=== PATIENT | female | born 1955 | race Caucasian/White ===

== ENCOUNTER 2019-09-03 07:57 | Outpatient (CLI) | payer MEDICARE, MEDICAID, SELFPAY ==
--- NOTE | 2019-09-03 08:45 | US_ITS ---
WS: [id number] RIGHT UPPER QUADRANT ULTRASOUND HISTORY: ELEVATED TRANSAMINASE LEVEL COMPARISON: None available. Liver: 13.4 cm in length. Poorly visualized liver. Marked attenuation throughout the liver. There is at least moderate enlargement of the liver with severe hepatic steatosis. The liver is not adequately evaluated to exclude mass or bile duct dilatation. Gallbladder: Well distended gallbladder with a single stone causing shadowing. No adjacent pericholec ystic fluid. CBD: 5.0 mm Pancreas: Not visualized. Right kidney: 14.3 cm in length. Normal echogenicity with no mass or hydronephrosis. Aorta and IVC: Unremarkable. No ascites. US/US gall bladder [id number] IMPRESSION: 1. Technically limited evaluation of the RIGHT upper quadrant. 2. Cholelithiasis without acute cholecystitis. 3. Hepatic steatosis. Hepatomegaly. 4. Very limited evaluation of the liver and pancreas.
== END 2019-09-03 07:58 | disposition home or self-care (01) ==
PROVIDERS: Family Provider Family Medicine; PCP Family Medicine; Visit Provider Family Medicine
DX: K80.20 Calculus of gallbladder without cholecystitis without obstruction (principal); R74.0 Nonspecific elevation of levels of transaminase and lactic acid dehydrogenase [LDH]; K76.0 Fatty (change of) liver, not elsewhere classified
CPT/HCPCS: 76705

== ENCOUNTER 2020-02-26 22:03 | Emergency (ER) | payer MEDICARE, MEDICAID, SELFPAY ==
[2020-02-26 22:40] VITALS: BP 212/102; PULSE 98; RESP 20; TEMP 37.5; O2SAT 92; BMI 61.9
[2020-02-26 22:52] LABS: Basophils % 0.2 %; Eosinophils % 0.1 %; Hematocrit 42.2 % (37.0-47.0); Hemoglobin 13.6 g/dL (11.5-15.3); Lymphocytes # 2.7 10^3/uL (0.8-4.8); Lymphocytes % 14.2 %; Mean Corpuscular HGB Conc 32.2 g/dL (30.0-36.0); Mean Corpuscular Hemoglobin 29.1 pg (28.0-34.0); Mean Corpuscular Volume 90.2 fL (81-99); Mean Platelet Volume 11.2 fL (7.4-10.4); Monocytes # 1.7 10^3/uL (0.2-0.9); Monocytes % 8.8 %; Neutrophils # 14.4 10^3/uL (1.8-7.7); Neutrophils % 76.1 %; Nucleated Red Blood Cells % 0 %; Platelet Count 245 10^3/cmm (130-400); Red Blood Count 4.68 10^6/uL (4.1-5.3); Red Cell Distribution Width 14.6 % (12.1-15.1); White Blood Count 18.9 10^3/uL (4.0-10.0)
[2020-02-26 23:13] LABS: Alanine Aminotransferase 25 U/L (0-33); Albumin Level 4.3 g/dL (3.5-5.2); Alkaline Phosphatase 123 IU/L (35-105); Anion Gap 17.9 (5-19); Aspartate Amino Transferase 25 U/L (0-32); Blood Urea Nitrogen 8 mg/dL (8-23); C Reactive Protein 76.9 mg/L (0.0-4.9); Calcium 9.3 mg/dL (8.5-10.5); Carbon Dioxide 27 mmol/L (22-29); Chloride 91 mmol/L (98-107); Globulin 3.9 g/dL (1.3-4.6); Glomerular Filtration Rate 123.8 mL/min (90-130); Glucose 175 mg/dL (65-115); Osmolality Calculated 274 mOsm/kg (285-295); Potassium 3.9 mmol/L (3.5-5.1); Sodium 132 mmol/L (136-145); Total Bilirubin 1.1 mg/dL (0.15-1.2); Total Protein 8.2 g/dL (6.6-8.7)
--- NOTE | 2020-02-26 23:43 | W.ED.SKABFB ---
HPI - Skin/Abscess/Foreign Bdy General: Chief complaint: Skin/Abscess/Foreign Body Stated complaint: wound on butt Time Seen by Provider: 02/26/20 23:42 History of Present Illness: HPI narrative: Patient is a 64-year-old female who comes to the ED with sore on right buttock. Patient says it started approximately 3 to 4 days ago. First was a small red sore with a little enamorado and it has since progressed and gotten more painful. Today patient said she wiped sore and white head was removed and blood started leaking out. Denies any pus or malodorous drainage from sore. Pain gets worse if she sits on it or puts any pressure on sore. As long as she is not putting any pressure on sore spot she has very little pain. Patient says she is just been taking aspirin for the pain. Patient started developing mild subjective fevers at home today. Associated symptoms: Reports fever(s); Deny chills, nausea or vomiting Review of Systems Const: Reports: fever(s); Denies: chills or fatigue Eyes: Denies: change in vision or eye discomfort ENMT: Denies: throat pain, odynophagia, nasal discharge or nasal congestion Card: Denies: chest pain, palpitations, edema, swelling of feet/ankles, dyspnea on exertion or orthopnea Resp: Denies: dyspnea, productive cough or non-productive cough GI: Denies: abdominal pain, nausea, vomiting, diarrhea, constipation or hematochezia : Denies: flank pain, dysuria or hematuria Musc: Denies: neck pain, back pain or extremity swelling Skin/Breast: Reports: new lesions (on right buttock); Denies: rash Neuro: Denies: headache(s), numbness in extremities or weakness in extremities PFS ED PFSH: Medical History Arthritis COPD (chronic obstructive pulmonary disease) Enrolled in chronic care management Essential hypertension Hyperglycemia without ketosis Social History Smoking and tobacco status: former smoker Quit status (tobacco): has quit using tobacco Year quit tobacco: 2017 Physical Exam Const: COMMON NORMALS: no acute distress, patient oriented x3 and alert GENERAL APPEARANCE: cooperative NUTRITIONAL APPEARANCE: obese HENMT: COMMON NORMALS: normocephalic HEAD & SCALP: normocephalic MOUTH: Normal oral and palatal mucosa present THROAT: posterior oropharynx normal and uvula midline Neck/C-Spine: COMMON NORMALS: supple GENERAL: Yes normal visual inspection Resp: COMMON NORMALS: normal respiratory effort, No retractions, No use of accessory muscles and clear to auscultation bilaterally AUSCULTATION: clear to auscultation bilaterally Cardio: COMMON NORMALS: regular rate, regular rhythm, S1 normal heart sound present, S2 normal heart sound present, No gallops present (Cardio), No clicks present (Cardio), No murmurs present (Cardio) and Peripheral pulses 2+ throughout RATE: regular rate RHYTHM: regular rhythm HEART SOUNDS: S1 normal heart sound present and S2 normal heart sound present PERIPHERAL PULSES: Peripheral pulses 2+ throughout GI: COMMON NORMALS: Normal to inspection, nondistended, normoactive bowel sounds present, Soft to palpation, non-tender and no masses PALPATION: Yes Soft to palpation : COMMON NORMALS: Yes no CVA tenderness BLADDER/KIDNEY EXAM: Yes no CVA tenderness Back/Pelvis: COMMON NORMALS: no CVA tenderness PELVIS: Yes buttock abnormal Buttock abnormal laterality: right (Patient has erythema, warmth with a small pointed head that is draining minimal blood but no purulent drainage. Skin is indurated and nonfluctuant) Right buttock abnormal details: erythema and swelling Neuro: COMMON NORMALS: patient oriented x3 and moves all extremities SENSORIUM/ORIENTATION: Yes alert SENSORY EXAM: Yes extremities (intact) MOTOR EXAM: 5/5 motor strength present throughout Skin: NARRATIVE SKIN EXAM: Forming abscess on right buttock. There is no active purulent drainage. There is a small pointed head that is draining very little blood. Skin is firm erythema and warmth. Lesion is indurated and nonfluctuant. Mild tenderness to the touch. GENERAL SKIN EXAM: dry skin Course Reevaluation(s): Reevaluation #1: A bedside ultrasound was performed to examine the lesion to see if that has any formed pocket of fluid to drain. No fluid pockets were visible upon ultrasound examination. Vital Signs: Vital signs: Vital Signs Temperature 99.5 F 02/26/20 22:40 Pulse Rate 94 02/27/20 00:29 Respiratory Rate 20 H 02/27/20 00:29 Blood Pressure 219/82 02/27/20 00:29 Pulse Oximetry 95 02/27/20 00:29 MDM - Skin/Abscess/Foreign Bdy MDM Narrative: Medical decision making narrative: Patient is a 64-year-old female who comes to the ED with a lesion on right buttock. Physical exam shows erythema, warmth and skin was firm but mildly tender to the touch. Lesion was indurated and nonfluctuant. No active purulent drainage. Bedside ultrasound was performed to use see if there was any pocket of fluid to be drained and no fluid pocket was identified. Pt had a BP of 141/84 while I was in the room with patient. Patient had a white blood cell count of 18.9. Patient was given IV fluids, Toradol and rocephin through the IV. Patient was diagnosed with abscess and cellulitis of gluteal region and she was given a prescription of clindamycin. Patient was told to return to the ED if symptoms worsen. She was also told to be seen by her primary care doctor in the next 2 to 3 days for reevaluation. Patient understood and agreed with plan. Lab Data: Attestation: I reviewed the patient's lab results. Labs: Lab Results 02/26/20 02/26/20 Range/Units 22:31 22:31 WBC 18.9 H (4.0-10.0) 10^3/ uL RBC 4.68 (4.1-5.3) 10^6/u L Hgb 13.6 (11.5-15.3) g/dL Hct 42.2 (37.0-47.0) % MCV 90.2 (81-99) fL MCH 29.1 (28.0-34.0) pg MCHC 32.2 (30.0-36.0) g/dL RDW 14.6 (12.1-15.1) % Plt Count 245 (130-400) 10^3/c mm MPV 11.2 H (7.4-10.4) fL Neut % (Auto) 76.1 % Lymph % (Auto) 14.2 % Bland % (Auto) 8.8 % Eos % (Auto) 0.1 % Baso % (Auto) 0.2 % Neut # (Auto) 14.4 H (1.8-7.7) 10^3/u L Lymph # (Auto) 2.7 (0.8-4.8) 10^3/u L Bland # (Auto) 1.7 H (0.2-0.9) 10^3/u L Eos # (Auto) 0.0 (0.0-0.8) 10^3/u L Baso # (Auto) 0.0 (0.0-0.1) 10^3/u L Nucleated RBC % (a uto) 0 % Nucleated RBCs # 0.0 /100WBC Sodium 132 L (136-145) mmol/L Potassium 3.9 (3.5-5.1) mmol/L Chloride 91 L (98-107) mmol/L Carbon Dioxide 27 (22-29) mmol/L Anion Gap 17.9 (5-19) BUN 8 (8-23) mg/dL Creatinine 0.5 (0.5-0.9) mg/dL GFR Calculation 123.8 (90-130) mL/min Glucose 175 H (65-115) mg/dL Calculated Osmolal ity 274 L (285-295) mOsm/k g Calcium 9.3 (8.5-10.5) mg/dL Total Bilirubin 1.1 (0.15-1.2) mg/dL AST 25 (0-32) U/L ALT 25 (0-33) U/L Alkaline Phosphata se 123 H (35-105) IU/L C-Reactive Protein 76.9 H (0.0-4.9) mg/L Total Protein 8.2 (6.6-8.7) g/dL Albumin 4.3 (3.5-5.2) g/dL Globulin 3.9 (1.3-4.6) g/dL Discharge Plan Discharge Patient Disposition: Home, Self-Care Clinical Impression: Abscess and cellulitis of gluteal region Condition: Stable Prescriptions: New clindamycin HCl 150 mg capsule 300 mg PO QID 7 Days Qty: 56 RF: 0 No Action albuterol sulfate 2.5 mg /3 mL (0.083 %) solution for nebulization 2.5 mg INHALATION QID PRNRF: 0 Altabax 1 % ointment 1 applic TOPICAL BID PRNRF: 0 aspirin [Adult Aspirin Regimen] 81 mg tablet,delayed release (DR/EC) 81 mg PO DAILY RF: 0 nystatin 100,000 unit/gram cream 1 applic TOPICAL BID RF: 0 diltiazem HCl 360 mg capsule,extended release 24 hr 360 mg PO DAILY Qty: 30 RF: 11 Discharge Orders: Discharge Order (Routine); Ordered 02/27/20 Ordered By: Rikki Ivey Referrals: Brain Wright DO [Primary Care Provider] - Discharge Diet: Regular Discharge Activity: Increase activity as tolerated Patient Instructions: Cellulitis (ED), Abscess (ED) Activity Restrictions/Additional Instructions: Follow-up with medical provider as directed in 2-3 days. Take full course of antibitotic as prescribed. Return to the ER or your medical provider if condition worsens. You can take Tylenol or ibuprofen for pain or fevers. Please read and understand discharge instructions. If any questions ask please. Coding Level of Care Code ED [facility] Specialist for Alex Ingram
[2020-02-27 00:29] VITALS: BP 219/82; PULSE 94; RESP 20; O2SAT 95
[2020-02-27] MEDS: sodium chloride 0.9% 1,000 ML 999 ML IV (00:32)
[2020-02-27] MEDS: ketorolac 30 mg/mL INJ IVP (00:37)
[2020-02-27] MEDS: cefTRIAXone 2,000 MG in sodium chloride 0.9% (plus) 50 ML 100 MG IV (00:37)
[2020-02-27 02:32] VITALS: BP 177/68; PULSE 96; RESP 20; TEMP 37.2; O2SAT 96
== END 2020-02-27 03:00 | disposition home or self-care (01) ==
PROVIDERS: Emergency Provider Physician Assistant; PCP Family Medicine
DX: L02.31 Cutaneous abscess of buttock (principal); L03.317 Cellulitis of buttock; Z79.82 Long term (current) use of aspirin; J44.9 Chronic obstructive pulmonary disease, unspecified; I10 Essential (primary) hypertension; Z87.891 Personal history of nicotine dependence
CPT/HCPCS: 12345; 36415; 80053; 85025; 86140; 87040; 96365; 96375; 99282; 99283; J0696; J1885; J7030

== ENCOUNTER 2020-02-28 17:00 | Emergency (ER) | payer MEDICARE, MEDICAID, SELFPAY ==
[2020-02-28 17:23] VITALS: BP 166/87; PULSE 76; RESP 20; TEMP 35.8; O2SAT 95; BMI 49.6
[2020-02-28 21:37] VITALS: BP 196/85; PULSE 82; RESP 20; TEMP 37.1; O2SAT 94
--- NOTE | 2020-02-28 22:42 | ED_ITS ---
HPI - Wound/Laceration General: Chief Complaint: Wound/Laceration Stated Complaint: wound check Time Seen by Provider: 02/28/20 22:33 History of Present Illness: HPI narrative: Patient was seen 2 to 3 days ago for a area on her right buttocks. Patient was started on clindamycin and has had worsening symptoms. Patient reports increased pain and discomfort to the area. Patient reports some drainage from the wound. Review of Systems General: Reports: 10 or more systems reviewed and unremarkable except in HPI and below Skin/Breast: Reports: changes in skin color PFSH ED PFSH: Medical History (Updated 02/28/20 @ 23:46 by BLAS Galvan) Arthritis COPD (chronic obstructive pulmonary disease) Enrolled in chronic care management Essential hypertension Hyperglycemia without ketosis Social History Smoking and tobacco status: former smoker Quit status (tobacco): has quit using tobacco Year quit tobacco: 2017 Physical Exam Const: COMMON NORMALS: no acute distress and patient oriented x3 GENERAL APPEARANCE: cooperative HENMT: COMMON NORMALS: normocephalic and Normal external nose present HEAD & SCALP: normal to inspection and normocephalic NOSE: Normal external nose present MOUTH: Normal oral and palatal mucosa present THROAT: posterior oropharynx normal Eye: GENERAL EYE: appearance normal, both eyes and all related structures Neck/C-Spine: COMMON NORMALS: full ROM Lymph: LYMPHATIC: no lymphadenopathy noted Chest: COMMONS NORMALS: normal inspection of the chest Resp: COMMON NORMALS: normal respiratory effort EFFORT & INSPECTION: Yes able to speak in complete sentences Cardio: COMMON NORMALS: regular rate and regular rhythm RATE: regular rate RHYTHM: regular rhythm GI: COMMON NORMALS: non-tender Back/Pelvis: COMMON NORMALS: thoracic and lumbar spine normal to inspection Extremity: COMMON NORMALS: normal to inspection Neuro: COMMON NORMALS: patient oriented x3 and moves all extremities Psych: COMMON NORMALS: mental status grossly normal and cooperative Skin: COMMON NORMALS: no rashes or lesions noted GENERAL SKIN EXAM: no rashes or lesions noted Procedures Abscess I/D Site: kimberly-rectal (right buttock) Side (if applicable): right Local Anesthetic: lidocaine 1% Amount of anesthesia used (mL): 10 Technique: incised with #11 blade Amount of fluid expressed (mL): 10 Irrigation: Yes Packing used?: iodoform Complications: bleeding Course Vital Signs: Vital signs: Vital Signs Temperature 98.7 F 02/29/20 00:45 Pulse Rate 82 02/29/20 00:45 Respiratory Rate 18 02/29/20 00:45 Blood Pressure 188/74 02/29/20 00:45 Pulse Oximetry 94 02/29/20 00:45 MDM - Wound/Laceration MDM Narrative: Medical decision making narrative: Patient comes in for worsening symptoms to the right buttock. On exam we note increased induration and erythema to the right buttock with a draining central lesion. Patient's vital signs are normal. Patient appears well. Differential diagnosis includes abscess, cellulitis, necrotizing fasciitis. No crepitus was noted in the tissue, wound was opened up with evacuation of a large amount of purulent drainage and some increase in bleeding. Bleeding ceased without much difficulty. Patient was packed with about 3 inches of iodoform gauze. Patient was recommended to return in 2 to 3 days for removal of packing or to return earlier for worsening signs and symptoms. Patient reported understanding and agreed to plan. Patient was given medication for pain in the ER and was also given a dose of clindamycin 900 mg by IV. Lab Data: Labs: Lab Results 02/28/20 02/28/20 Range/Units 23:01 23:01 WBC 14.6 H (4.0-10.0) 10^3/ uL RBC 4.33 (4.1-5.3) 10^6/u L Hgb 12.3 (11.5-15.3) g/dL Hct 39.5 (37.0-47.0) % MCV 91.2 (81-99) fL MCH 28.4 (28.0-34.0) pg MCHC 31.1 (30.0-36.0) g/dL RDW 14.6 (12.1-15.1) % Plt Count 247 (130-400) 10^3/c mm MPV 11.3 H (7.4-10.4) fL Neut % (Auto) 63.2 % Lymph % (Auto) 26.3 % [place] % (Auto) 8.7 % Eos % (Auto) 1.0 % Baso % (Auto) 0.5 % Neut # (Auto) 9.2 H (1.8-7.7) 10^3/u L Lymph # (Auto) 3.8 (0.8-4.8) 10^3/u L [place] # (Auto) 1.3 H (0.2-0.9) 10^3/u L Eos # (Auto) 0.2 (0.0-0.8) 10^3/u L Baso # (Auto) 0.1 (0.0-0.1) 10^3/u L Nucleated RBC % (a uto) 0 % Nucleated RBCs # 0.0 /100WBC Sodium 135 L (136-145) mmol/L Potassium 3.5 (3.5-5.1) mmol/L Chloride 95 L (98-107) mmol/L Carbon Dioxide 26 (22-29) mmol/L Anion Gap 17.5 (5-19) BUN 13 (8-23) mg/dL Creatinine 0.5 (0.5-0.9) mg/dL GFR Calculation 123.8 (90-130) mL/min Glucose 136 H (65-115) mg/dL Calculated Osmolal ity 278 L (285-295) mOsm/k g Calcium 9.6 (8.5-10.5) mg/dL Total Bilirubin 0.6 (0.15-1.2) mg/dL AST 25 (0-32) U/L ALT 24 (0-33) U/L Alkaline Phosphata se 110 H (35-105) IU/L Total Protein 7.5 (6.6-8.7) g/dL Albumin 4.1 (3.5-5.2) g/dL Globulin 3.4 (1.3-4.6) g/dL Discharge Plan Discharge Patient Disposition: Home, Self-Care Clinical Impression: Abscess Condition: Stable Prescriptions: New hydrocodone-acetaminophen 5-325 mg tablet 1 tab PO Q6H PRN (Reason: pain, severe) Qty: 7 RF: 0 No Action albuterol sulfate 2.5 mg /3 mL (0.083 %) solution for nebulization 2.5 mg INHALATION QID PRNRF: 0 Altabax 1 % ointment 1 applic TOPICAL BID PRNRF: 0 aspirin [Adult Aspirin Regimen] 81 mg tablet,delayed release (DR/EC) 81 mg PO DAILY RF: 0 nystatin 100,000 unit/gram cream 1 applic TOPICAL BID RF: 0 diltiazem HCl 360 mg capsule,extended release 24 hr 360 mg PO DAILY Qty: 30 RF: 11 clindamycin HCl 150 mg capsule 300 mg PO QID 7 Days Qty: 56 RF: 0 Discharge Orders: Discharge Order (Routine); Ordered 02/28/20 Ordered By: Karl Snyder Discharge Diet: Usual diet Discharge Activity: Increase activity as tolerated Patient Instructions: Abscess Incision and Drainage (ED) Activity Restrictions/Additional Instructions: Return to the ER in 3 days to have wick removed from abscess. Return earlier to the ER for high fever or worsening symptoms. Take clindamycin 150 mg 2 capsules twice a day 4 times a day until complete of the prescription. Follow-up with primary care in 1 week. Discharge Date/Time: 02/29/20 00:46 Coding Level of Care Code ED Video Editor for Alex Ingram
[2020-02-28 23:12] LABS: Basophils # 0.1 10^3/uL (0.0-0.1); Basophils % 0.5 %; Eosinophils # 0.2 10^3/uL (0.0-0.8); Hematocrit 39.5 % (37.0-47.0); Hemoglobin 12.3 g/dL (11.5-15.3); Lymphocytes # 3.8 10^3/uL (0.8-4.8); Lymphocytes % 26.3 %; Mean Corpuscular HGB Conc 31.1 g/dL (30.0-36.0); Mean Corpuscular Hemoglobin 28.4 pg (28.0-34.0); Mean Corpuscular Volume 91.2 fL (81-99); Mean Platelet Volume 11.3 fL (7.4-10.4); Monocytes # 1.3 10^3/uL (0.2-0.9); Monocytes % 8.7 %; Neutrophils # 9.2 10^3/uL (1.8-7.7); Neutrophils % 63.2 %; Nucleated Red Blood Cells % 0 %; Platelet Count 247 10^3/cmm (130-400); Red Blood Count 4.33 10^6/uL (4.1-5.3); Red Cell Distribution Width 14.6 % (12.1-15.1); White Blood Count 14.6 10^3/uL (4.0-10.0)
[2020-02-28] MEDS: lidocaine 1% INJ 20 mL INJECTION (23:28)
[2020-02-28] MEDS: ketorolac 30 mg/mL INJ IVP (23:28)
[2020-02-28] MEDS: ondansetron 2 mg/ML SDV 2 mL 4 MG IVP (23:28)
[2020-02-28 23:31] LABS: Alanine Aminotransferase 24 U/L (0-33); Albumin Level 4.1 g/dL (3.5-5.2); Alkaline Phosphatase 110 IU/L (35-105); Anion Gap 17.5 (5-19); Aspartate Amino Transferase 25 U/L (0-32); Blood Urea Nitrogen 13 mg/dL (8-23); Calcium 9.6 mg/dL (8.5-10.5); Carbon Dioxide 26 mmol/L (22-29); Chloride 95 mmol/L (98-107); Globulin 3.4 g/dL (1.3-4.6); Glomerular Filtration Rate 123.8 mL/min (90-130); Glucose 136 mg/dL (65-115); Osmolality Calculated 278 mOsm/kg (285-295); Potassium 3.5 mmol/L (3.5-5.1); Sodium 135 mmol/L (136-145); Total Bilirubin 0.6 mg/dL (0.15-1.2); Total Protein 7.5 g/dL (6.6-8.7)
[2020-02-28] MEDS: clindamycin 900 MG/50 ML PREMIX 100 MG IV (23:52)
[2020-02-29] MEDS: HYDROcodone-acetaminophen 5-325 mg Tablet 1 TAB PO (00:44)
[2020-02-29 00:45] VITALS: BP 188/74; PULSE 82; RESP 18; TEMP 37.1; O2SAT 94
== END 2020-02-29 00:46 | disposition home or self-care (01) ==
PROVIDERS: Emergency Provider Nurse Practitioner Family
DX: L02.31 Cutaneous abscess of buttock (principal); Z79.82 Long term (current) use of aspirin; J44.9 Chronic obstructive pulmonary disease, unspecified; I10 Essential (primary) hypertension; Z87.891 Personal history of nicotine dependence
CPT/HCPCS: 10060; 12345; 80053; 85025; 96365; 96375; 96376; 99283; J1885; J2001; J2405; J3490

== ENCOUNTER 2020-12-05 23:21 | Emergency (ER) | payer MEDICARE, MEDICAID, SELFPAY ==
[2020-12-05 23:25] VITALS: BP 208/114; PULSE 84; RESP 18; TEMP 36.6; O2SAT 94
[2020-12-05 23:48] LABS: Add Urine Microscopic? NO; Charge for UA Resulting for Rev
--- NOTE | 2020-12-05 23:49 | CTR_ITS ---
PROCEDURE INFORMATION: Exam: CT Abdomen And Pelvis Without Contrast Exam date and time: 12/05/2020 11:53 PM Age: 65 years old Clinical indication: Abdominal pain; Flank; Right; Prior surgery; Surgery type: Appy; Additional info: Left flank pain TECHNIQUE: Imaging protocol: Computed tomography of the abdomen and pelvis without contrast. Radiation optimization: All CT scans at this facility use at least one of these dose optimization techniques: automated exposure control; mA and/or kV adjustment per patient size (includes targeted exams where dose is matched to clinical indication); or iterative reconstruction. COMPARISON: US gall bladder [id number] 09/03/2019 8:19 AM RADIATION DOSE METRICS: Total DLP (mGy-cm): 2020.1 FINDINGS: Lungs: 3.4 x 1.9 cm right lower lobe consolidation with focal, central lucency. Liver: There is fatty infiltration of the liver. Gallbladder and bile ducts: No wall thickening, pericholecystic fluid or stones. Pancreas: Normal. No ductal dilation. Spleen: Normal. No splenomegaly. Adrenal glands: Normal. No mass. Kidneys and ureters: There are 2 nonobstructing left renal pelvis stones, largest measures 1.2 cm. 6 mm right lower pole renal pelvis stone. Stomach and bowel: Diverticulosis without diverticulitis. Appendix: Appendix has been removed. Intraperitoneal space: Unremarkable. No free air. No significant fluid collection. Vasculature: Unremarkable. No abdominal aortic aneurysm. Lymph nodes: Unremarkable. No enlarged lymph nodes. Urinary bladder: Unremarkable as visualized. Reproductive: Unremarkable as visualized. Bones/joints: Unremarkable. No acute fracture. Soft tissues: Fat containing umbilical hernia. CT/CT kidney stone [id number] IMPRESSION: 1. 3.4 x 1.9 cm right lower lobe pneumonia versus mass with central lucency. Recommend follow-up examination in 6 weeks. 2. Fatty infiltration of the liver. 3. There are 2 nonobstructing left renal pelvis stones, largest measures 1.2 cm. 4. 6 mm right lower pole renal pelvis stone. 5. Diverticulosis without diverticulitis. 6. Fat containing umbilical hernia. Radiation Dose CTDIVOL = (mGy): DLP = 2020.1 (mGy-cm)
[2020-12-05 23:51] LABS: Bilirubin Urine Neg (Negative); Blood Urine Neg (Negative); Glucose Urine UA Norm (Normal); Ketones Urine Negative (Negative); Leukocyte Esterase Urine Negative (Negative); Nitrate Urine Negative (Negative); Protein Urine Neg (Negative); Specific Gravity, Urine 1.015 (1.005-1.030); Urine Appearance Clear (CLEAR); Urine Color Yellow (Yellow); Urobilinogen Urine Norm (Negative); pH Urine 5 (5-7)
[2020-12-06 00:07] VITALS: BP 204/111; PULSE 86; RESP 24; O2SAT 97
[2020-12-06 00:22] VITALS: RESP 24; O2SAT 99
[2020-12-06] MEDS: HYDROmorphone 1 mg/mL INJ 1 mL IVP (00:22)
[2020-12-06] MEDS: ondansetron 2 mg/ML SDV 2 mL 4 MG IVP (00:22)
[2020-12-06 00:39] LABS: Basophils # 0.1 10^3/uL (0.0-0.1); Basophils % 0.6 %; Eosinophils # 0.2 10^3/uL (0.0-0.8); Eosinophils % 1.6 %; Hemoglobin 14.1 g/dL (11.5-15.3); Lymphocytes # 3.3 10^3/uL (0.8-4.8); Lymphocytes % 26.5 %; Mean Corpuscular HGB Conc 31.3 g/dL (30.0-36.0); Mean Corpuscular Hemoglobin 28.6 pg (28.0-34.0); Mean Corpuscular Volume 91.3 fL (81-99); Mean Platelet Volume 11.1 fL (7.4-10.4); Monocytes % 7.9 %; Neutrophils # 7.95 10^3/uL (1.8-7.7); Nucleated Red Blood Cells % 0 %; Platelet Count 280 10^3/cmm (130-400); Red Blood Count 4.93 10^6/uL (4.1-5.3); Red Cell Distribution Width 14.8 % (12.1-15.1); White Blood Count 12.6 10^3/uL (4.0-10.0)
[2020-12-06 00:57] LABS: Alanine Aminotransferase 53 U/L (0-33); Albumin Level 4.3 g/dL (3.5-5.2); Alkaline Phosphatase 145 IU/L (35-105); Anion Gap 16.4 (5-19); Aspartate Amino Transferase 64 U/L (0-32); Blood Urea Nitrogen 10 mg/dL (8-23); C Reactive Protein 11.9 mg/L (0.0-4.9); Calcium 9.1 mg/dL (8.5-10.5); Carbon Dioxide 27 mmol/L (22-29); Chloride 98 mmol/L (98-107); Globulin 3.4 g/dL (1.3-4.6); Glomerular Filtration Rate 123.4 mL/min (90-130); Glucose 149 mg/dL (65-115); Lipase 25 U/L (13-60); Osmolality Calculated 286 mOsm/kg (285-295); Potassium 4.4 mmol/L (3.5-5.1); Sodium 137 mmol/L (136-145); Total Bilirubin 0.4 mg/dL (0.15-1.2); Total Protein 7.7 g/dL (6.6-8.7)
--- NOTE | 2020-12-06 02:41 | W.ED.ABDPA2 ---
HPI - Abdominal Pain General: Chief Complaint: Abdominal Pain Stated Complaint: ABDOMINAL PAIN Time Seen by Provider: 12/05/20 23:22 History of Present Illness: HPI narrative: 65-year-old female with onset of left upper quadrant pain. She notes she has been hurting all day. She had thought she was constipated, but then had some loose stool following that. She denies fever. She is nauseated. No vomiting. She had some blood streaking in the stool, which she believes was from hemorrhoids. No dysuria. No hematuria. MD elicited complaint: abdominal pain and flank pain Pertinent past history: other Onset (ago): hour(s) Pain Consistency: constant Location: LUQ and L flank Severity: moderate Quality: cramping and stabbing Radiation: suprapubic Migration to: no migration Exacerbating factors: nothing Relieving factors: nothing Associated Symptoms: Reports GI cramping, diarrhea and nausea; Denies dysuria, fever(s), hematochezia, hematuria, hematemesis and vomiting Review of Systems Const: Denies: fever(s) Card: Denies: chest pain, palpitations or edema Resp: Reports: productive cough (Chronic); Denies: dyspnea or non-productive cough GI: Reports: nausea, diarrhea and GI cramping; Denies: vomiting, hematemesis or hematochezia : Denies: dysuria or hematuria Neuro: Denies: headache(s) or weakness in extremities PFSH ED PFSH: Medical History (Updated 12/06/20 @ 02:04 by Rishabh Mccarthy DO) Arthritis COPD (chronic obstructive pulmonary disease) Enrolled in chronic care management Essential hypertension Hyperglycemia without ketosis Social History Smoking and tobacco status: former smoker Quit status (tobacco): has quit using tobacco Year quit tobacco: 2017 Physical Exam Const: GENERAL APPEARANCE: cooperative ORIENTATION/CONSCIOUSNESS: Yes oriented to person, Yes oriented to place and Yes oriented to time HENMT: COMMON NORMALS: normocephalic, external ears normal and Normal external nose present HEAD & SCALP: normocephalic FACE & SINUS: normal facial exam NOSE: Normal external nose present and No nasal discharge present EXTERNAL EAR: Yes external ears normal Eye: COMMON NORMALS: Equal, round and reactive pupils present, EOMs intact bilaterally and conjunctivae normal EYELID: eyelids normal CONJUNCTIVA: Yes conjunctivae normal PUPIL: Yes Equal, round and reactive pupils present Neck/C-Spine: GENERAL: No tracheal deviation Chest: COMMONS NORMALS: normal inspection of the chest CHEST: No tenderness Resp: COMMON NORMALS: clear to auscultation bilaterally EFFORT & INSPECTION: No tachypneic, No respiratory distress, No retractions, No uses accessory muscles and No tracheal deviation AUSCULTATION: clear to auscultation bilaterally, no rhonchi, no wheezes and lung sounds not diminished Cardio: COMMON NORMALS: regular rate and regular rhythm RATE: regular rate RHYTHM: regular rhythm HEART SOUNDS: no murmurs PERIPHERAL PULSES: radial pulses present GI: INSPECTION: No abdominal distension AUSCULTATION: No Hyperactive bowel sounds present and No Hypoactive bowel sounds present PALPATION: Yes Tenderness to palpation present (GI) Details: LUQ, Yes Guarding due to palpation present (GI) and No Rigid due to palpation PERCUSSION: no dullness to percussion and no tympanic to percussion : BLADDER/KIDNEY EXAM: Yes CVA tenderness on the left Neuro: SENSORIUM/ORIENTATION: Yes oriented to person, Yes oriented to place and Yes oriented to time Psych: COMMON NORMALS: mental status grossly normal Skin: COMMON NORMALS: no rashes or lesions noted GENERAL SKIN EXAM: no rashes or lesions noted Course Vital Signs: Vital signs: Vital Signs Temperature 97.9 F 12/05/20 23:25 Pulse Rate 86 12/06/20 00:07 Respiratory Rate 24 H 12/06/20 00:22 Blood Pressure 204/111 12/06/20 00:07 Pulse Oximetry 99 12/06/20 00:22 MDM - Abdominal Pain MDM Narrative: Medical decision making narrative: Left flank pain in a 65-year-old female. No fever. White blood cell count 12.6. Renal function and electrolytes are normal. Hemoglobin is 14. Urinalysis is normal. CT scan shows intrarenal stones with no ureteral or obstructing stones. No diverticulitis. She does, however, have a right-sided lower lobe pneumonia which does not correlate well with her symptoms but is present on CT. Suggestion is made for 6-week follow-up. She will be treated with antibiotics for the pneumonia, close outpatient follow-up regarding that. We will treat for constipation otherwise. Lab Data: Labs: Lab Results 12/05/20 12/06/20 12/06/20 Range/Units 23:39 00:20 00:20 WBC 12.6 H (4.0-10.0) 10^3/ uL RBC 4.93 (4.1-5.3) 10^6/u L Hgb 14.1 (11.5-15.3) g/dL Hct 45.0 (37.0-47.0) % MCV 91.3 (81-99) fL MCH 28.6 (28.0-34.0) pg MCHC 31.3 (30.0-36.0) g/dL RDW 14.8 (12.1-15.1) % Plt Count 280 (130-400) 10^3/c mm MPV 11.1 H (7.4-10.4) fL Neut % (Auto) 63.0 % Lymph % (Auto) 26.5 % [place] % (Auto) 7.9 % Eos % (Auto) 1.6 % Baso % (Auto) 0.6 % Neut # (Auto) 7.95 H (1.8-7.7) 10^3/u L Lymph # (Auto) 3.3 (0.8-4.8) 10^3/u L [place] # (Auto) 1.0 H (0.2-0.9) 10^3/u L Eos # (Auto) 0.2 (0.0-0.8) 10^3/u L Baso # (Auto) 0.1 (0.0-0.1) 10^3/u L Nucleated RBC % (a uto) 0 % Nucleated RBCs # 0.0 /100WBC Sodium 137 (136-145) mmol/L Potassium 4.4 (3.5-5.1) mmol/L Chloride 98 (98-107) mmol/L Carbon Dioxide 27 (22-29) mmol/L Anion Gap 16.4 (5-19) BUN 10 (8-23) mg/dL Creatinine 0.5 (0.5-0.9) mg/dL GFR Calculation 123.4 (90-130) mL/min Glucose 149 H (65-115) mg/dL Calculated Osmolal ity 286 (285-295) mOsm/k g Calcium 9.1 (8.5-10.5) mg/dL Total Bilirubin 0.4 (0.15-1.2) mg/dL AST 64 H (0-32) U/L ALT 53 H (0-33) U/L Alkaline Phosphata se 145 H (35-105) IU/L C-Reactive Protein 11.9 H (0.0-4.9) mg/L Total Protein 7.7 (6.6-8.7) g/dL Albumin 4.3 (3.5-5.2) g/dL Globulin 3.4 (1.3-4.6) g/dL Lipase 25 (13-60) U/L Urine Color Yellow (Yellow) Urine Appearance Clear (CLEAR) Urine pH 5 (5-7) Ur Specific Gravit y 1.015 (1.005-1.030) Urine Protein Neg (Negative) Urine Glucose (UA) Norm (Normal) Urine Ketones Negative (Negative) Urine Blood Neg (Negative) Urine Nitrate Negative (Negative) Urine Bilirubin Neg (Negative) Urine Urobilinogen Norm (Negative) mg/dL Ur Leukocyte Mckayla ase Negative (Negative) Discharge Plan Discharge Patient Disposition: Home Clinical Impression: Constipation Qualifiers: Constipation type: unspecified constipation type Qualified Code(s): K59.00 - Constipation, unspecified Pneumonia Qualifiers: Pneumonia type: due to unspecified organism Laterality: right Lung location: lower lobe of lung Qualified Code(s): J18.9 - Pneumonia, unspecified organism Condition: Stable Prescriptions: New levofloxacin 750 mg tablet 750 mg PO DAILY 7 Days Qty: 7 RF: 0 hydrocodone-acetaminophen 5-325 mg tablet 1 tab PO TID PRN (Reason: pain) Qty: 7 RF: 0 No Action mupirocin 2 % ointment 1 applic topical BID Qty: 15 RF: 0 albuterol sulfate 2.5 mg /3 mL (0.083 %) solution for nebulization 2.5 mg INHALATION QID PRNRF: 0 aspirin [Adult Aspirin Regimen] 81 mg tablet,delayed release (DR/EC) 81 mg PO DAILY RF: 0 nystatin 100,000 unit/gram cream 1 applic TOPICAL BID RF: 0 diltiazem HCl 360 mg capsule,extended release 24 hr 360 mg PO DAILY Qty: 30 RF: 11 (DME) oxygen See Rx Instructions .Route .MEDSUPPLY Qty: 1 RF: 0 Discharge Orders: Discharge ED (Routine); Ordered 12/06/20 Ordered By: Rishabh Mccarthy Referrals: Brain Wright DO [Primary Care Provider] - Patient Instructions: Constipation (ED), Pneumonia (ED), Opioid Safety Activity Restrictions/Additional Instructions: Treat your pneumonia with the antibiotics prescribed for a week. You should have repeat imaging in a few weeks to ensure it has cleared. See your doctor for this. Use the magnesium citrate for constipation. Following, you should continue to use a stool softener, especially if having to take pain medication for your left-sided pain. Return to the emergency room for fever greater than 100 despite 2-3 doses of antibiotics, worsening pain despite treatment, vomiting liquids or medications, worsening shortness of breath, other concerning symptoms. Coding Level of Care Code ED Business Department Chair for Chg Fwd Exam Comprehensive
[2020-12-06] MEDS: levoFLOXacin 750 mg Tablet PO (02:46)
[2020-12-06 02:56] VITALS: RESP 20; O2SAT 97
[2020-12-06] MEDS: HYDROmorphone 1 mg/mL INJ 1 mL 0.5 MG IVP (02:56)
[2020-12-06 03:01] VITALS: BP 186/92; PULSE 86; RESP 22; O2SAT 92
== END 2020-12-06 03:03 | disposition home or self-care (01) ==
PROVIDERS: Emergency Provider Emergency Medicine; PCP Family Medicine
DX: K59.00 Constipation, unspecified (principal); J18.9 Pneumonia, unspecified organism; Z79.82 Long term (current) use of aspirin; J44.9 Chronic obstructive pulmonary disease, unspecified; I10 Essential (primary) hypertension; Z87.891 Personal history of nicotine dependence
CPT/HCPCS: 71275; 74176; 80053; 81003; 83690; 85025; 86140; 96374; 96375; 96376; 99284; J1170; J1200; J1720; J2270; J2405; Q9967

== ENCOUNTER 2020-12-06 19:08 | Emergency (ER) | payer MEDICARE, MEDICAID, SELFPAY ==
[2020-12-06 19:15] VITALS: BP 178/72; PULSE 83; RESP 21; TEMP 36.4; O2SAT 90; BMI 54.8
[2020-12-06 21:30] VITALS: BP 202/104; PULSE 96; RESP 19; O2SAT 90
--- NOTE | 2020-12-06 21:42 | W.ED.ABDPA2 ---
HPI - Abdominal Pain General: Chief Complaint: Abdominal Pain Stated Complaint: pain in left side, seen 12/05 Time Seen by Provider: 12/06/20 21:35 History of Present Illness: HPI narrative: 65-year-old female seen by me last night. She complains tonight of the same left side of the flank/upper quadrant/lower chest pain that she had last night. Last night, she had a noncontrast CT that was nonacute for anything in the left upper quadrant, but was positive for right lower lobe mass or consolidation. She denies fever. She states the pain is the same, and she could not get her prescriptions for pain medication and antibiotic filled today because it was Monday. She notes that she vomited several times at home this morning. MD elicited complaint: abdominal pain and flank pain Pertinent past history: constipation Onset (ago): day(s) Pain Consistency: constant Location: LUQ and L flank Quality: stabbing Radiation: none Migration to: no migration Exacerbating factors: movement Relieving factors: medication Associated Symptoms: Reports change in stool character, nausea and vomiting; Denies chills, diarrhea, dysuria, fever(s), hematemesis and loose stools Review of Systems Const: Denies: fever(s) or chills Eyes: Denies: change in vision Card: Denies: chest pain or palpitations Resp: Reports: dyspnea and non-productive cough; Denies: productive cough GI: Reports: nausea, vomiting and change in stool character; Denies: hematemesis or diarrhea : Denies: dysuria Neuro: Denies: headache(s) or confusion PFS ED PFSH: Medical History (Updated 12/07/20 @ 00:15 by Rishabh Mccarthy DO) Arthritis COPD (chronic obstructive pulmonary disease) Enrolled in chronic care management Essential hypertension Hyperglycemia without ketosis Social History Smoking and tobacco status: former smoker Quit status (tobacco): has quit using tobacco Year quit tobacco: 2017 Physical Exam Const: NUTRITIONAL APPEARANCE: obese HENMT: COMMON NORMALS: normocephalic HEAD & SCALP: normocephalic Chest: COMMONS NORMALS: normal inspection of the chest Resp: COMMON NORMALS: normal respiratory effort, No retractions, No use of accessory muscles and clear to auscultation bilaterally AUSCULTATION: clear to auscultation bilaterally Cardio: COMMON NORMALS: regular rate and regular rhythm RATE: regular rate and not tachycardic RHYTHM: regular rhythm GI: COMMON NORMALS: Normal to inspection, nondistended, normoactive bowel sounds present and Soft to palpation PALPATION: Yes Soft to palpation and Yes Tenderness to palpation present (GI) Details: LUQ : BLADDER/KIDNEY EXAM: Yes CVA tenderness on the left Course Vital Signs: Vital signs: Vital Signs Temperature 97.6 F 12/06/20 19:15 Pulse Rate 98 12/07/20 01:07 Respiratory Rate 22 H 12/07/20 01:07 Blood Pressure 199/99 12/07/20 01:07 Pulse Oximetry 97 12/07/20 01:07 MDM - Abdominal Pain MDM Narrative: Medical decision making narrative: Patient had desaturation on the way to her room to the mid 80s. She is on oxygen now and doing fine. She does have oxygen at home. Because of this, CTA was ordered, as it is basically the only work-up we have not done. It is negative for pulmonary embolus. At further delineates the right sided lower lobe mass and/or infectious process. She vomited her antibiotics this morning, so we will have her switch antibiotics. She needs a repeat CT scan. She was counseled on this yesterday. She is given another laxative, and will be allowed discharge Lab Data: Labs: Lab Results 12/06/20 12/06/20 Range/Units 23:00 23:00 WBC 11.4 H (4.0-10.0) 10^3/ uL RBC 4.91 (4.1-5.3) 10^6/u L Hgb 13.9 (11.5-15.3) g/dL Hct 44.9 (37.0-47.0) % MCV 91.4 (81-99) fL MCH 28.3 (28.0-34.0) pg MCHC 31.0 (30.0-36.0) g/dL RDW 15.1 (12.1-15.1) % Plt Count 292 (130-400) 10^3/c mm MPV 11.1 H (7.4-10.4) fL Neut % (Auto) 62.2 % Lymph % (Auto) 27.0 % [place] % (Auto) 9.0 % Eos % (Auto) 1.0 % Baso % (Auto) 0.4 % Neut # (Auto) 7.08 (1.8-7.7) 10^3/u L Lymph # (Auto) 3.1 (0.8-4.8) 10^3/u L [place] # (Auto) 1.0 H (0.2-0.9) 10^3/u L Eos # (Auto) 0.1 (0.0-0.8) 10^3/u L Baso # (Auto) 0.1 (0.0-0.1) 10^3/u L Nucleated RBC % (a uto) 0 % Nucleated RBCs # 0.0 /100WBC Sodium 137 (136-145) mmol/L Potassium 4.4 (3.5-5.1) mmol/L Chloride 96 L (98-107) mmol/L Carbon Dioxide 30 H (22-29) mmol/L Anion Gap 15.4 (5-19) BUN 17 (8-23) mg/dL Creatinine 0.5 (0.5-0.9) mg/dL GFR Calculation 123.4 (90-130) mL/min Glucose 150 H (65-115) mg/dL Calculated Osmolal ity 288 (285-295) mOsm/k g Calcium 8.8 (8.5-10.5) mg/dL Total Bilirubin 0.5 (0.15-1.2) mg/dL AST 47 H (0-32) U/L ALT 47 H (0-33) U/L Alkaline Phosphata se 147 H (35-105) IU/L C-Reactive Protein 19.4 H (0.0-4.9) mg/L Total Protein 7.8 (6.6-8.7) g/dL Albumin 4.2 (3.5-5.2) g/dL Globulin 3.6 (1.3-4.6) g/dL Lipase 19 (13-60) U/L Discharge Plan Discharge Patient Disposition: Home Clinical Impression: Constipation Qualifiers: Constipation type: unspecified constipation type Qualified Code(s): K59.00 - Constipation, unspecified Pneumonia Qualifiers: Pneumonia type: due to unspecified organism Laterality: right Lung location: lower lobe of lung Qualified Code(s): J18.9 - Pneumonia, unspecified organism Condition: Stable Prescriptions: New Zithromax 250 mg tablet See Rx Instructions .ROUTE .COMPLEX Qty: 6 RF: 0 No Action mupirocin 2 % ointment 1 applic topical BID Qty: 15 RF: 0 albuterol sulfate 2.5 mg /3 mL (0.083 %) solution for nebulization 2.5 mg INHALATION QID PRNRF: 0 aspirin [Adult Aspirin Regimen] 81 mg tablet,delayed release (DR/EC) 81 mg PO DAILY RF: 0 nystatin 100,000 unit/gram cream 1 applic TOPICAL BID RF: 0 diltiazem HCl 360 mg capsule,extended release 24 hr 360 mg PO DAILY Qty: 30 RF: 11 (DME) oxygen See Rx Instructions .Route .MEDSUPPLY Qty: 1 RF: 0 levofloxacin 750 mg tablet 750 mg PO DAILY 7 Days Qty: 7 RF: 0 hydrocodone-acetaminophen 5-325 mg tablet 1 tab PO TID PRN (Reason: pain) Qty: 7 RF: 0 Discharge Orders: Discharge ED (Routine); Ordered 12/07/20 Ordered By: Rishabh Mccarthy Referrals: Brain Wright DO [Primary Care Provider] - 4-7 days Discharge Diet: Advance as tolerated Discharge Activity: Increase activity as tolerated Patient Instructions: Constipation (ED), Pneumonia (ED), Opioid Safety Activity Restrictions/Additional Instructions: Do not use the antibiotic you were prescribed yesterday, as it made you sick. Use the antibiotic you were prescribed this evening. Other medications from yesterday as directed. Use the laxative you were given here when you get home help relieve constipation. Home enemas also may help. Return for worsening symptoms despite treatment. Coding Level of Care Code ED Ladies[employer] Locker Room Attendant for Alex Ingram
[2020-12-06 21:43] VITALS: BP 197/111; PULSE 94; RESP 22; O2SAT 87; O2SAT 97
--- NOTE | 2020-12-06 21:59 | CTR_ITS ---
PROCEDURE INFORMATION: Exam: CTA Chest With Contrast Exam date and time: 12/06/2020 11:00 PM Age: 65 years old Clinical indication: Left-sided chest pain; Patient HX: C/O L flank/chest pain and SOB TECHNIQUE: Imaging protocol: Computed tomographic angiography of the chest with contrast. 3D rendering (Not supervised by radiologist): MIP and/or 3D reconstructed images were created by the technologist. Radiation optimization: All CT scans at this facility use at least one of these dose optimization techniques: automated exposure control; mA and/or kV adjustment per patient size (includes targeted exams where dose is matched to clinical indication); or iterative reconstruction. Contrast material: VISI 320; Contrast volume: 74 ml; Contrast route: INTRAVENOUS (IV); COMPARISON: CR Chest 2 views* [id number] 08/28/2017 12:14 PM RADIATION DOSE METRICS: Total DLP (mGy-cm): 522.8 FINDINGS: Pulmonary arteries: No evidence of pulmonary embolus. Aorta: No acute abnormality. Thyroid: The right thyroid lobe contains 1.2 cm 1.5 cm the tip of a low-density nodules. Lungs: A 3.2 cm thick-walled centrally cavitary lesion in the right lower lobe on image 34. The lungs are otherwise clear. Pleural spaces: Unremarkable. No pneumothorax. No pleural effusion. Heart: No cardiomegaly. No pericardial effusion. Lymph nodes: No enlarged lymph nodes. Bones/joints: No acute fracture. Soft tissues: Within normal limits. CT/CT angio chest PE protcl [id number] IMPRESSION: 1. No pulmonary embolus. 2. A 3.2 cm cavitary lesion in the lower lobe of the right lung. This has a relatively broad differential including malignancy, fungal or atypical infection, sequela of prior infarct or prior infection as well as noninfectious granulomatous processes. If this is a new finding without any correlating history, recommend following it with a low-dose noncontrast CT of the chest in 3 months to verify stability. 3. Right thyroid nodules should be followed with a thyroid ultrasound. COMMENTS: Consistent with the [employer]'s Incidental Findings Committee white paper (J Am Erlinda Radiol 2015): In patients aged 35 years and older with an incidental thyroid nodule equal to or greater than 1.[address], MRI or extrathyroidal US, further evaluation with dedicated thyroid US is recommended for patients with normal life expectancy and without comorbidities. For smaller nodules without suspicious features, no further evaluation or follow up is recommended. Radiation Dose CTDIVOL = (mGy): DLP = 522.8 (mGy-cm)
[2020-12-06] MEDS: ondansetron 2 mg/ML SDV 2 mL 4 MG IVP (23:02)
[2020-12-06 23:03] VITALS: RESP 18
[2020-12-06] MEDS: morphine 4 mg/mL SDV 1 mL IVP (23:03)
[2020-12-06 23:09] LABS: Basophils # 0.1 10^3/uL (0.0-0.1); Basophils % 0.4 %; Eosinophils # 0.1 10^3/uL (0.0-0.8); Hematocrit 44.9 % (37.0-47.0); Hemoglobin 13.9 g/dL (11.5-15.3); Lymphocytes # 3.1 10^3/uL (0.8-4.8); Mean Corpuscular Hemoglobin 28.3 pg (28.0-34.0); Mean Corpuscular Volume 91.4 fL (81-99); Mean Platelet Volume 11.1 fL (7.4-10.4); Neutrophils # 7.08 10^3/uL (1.8-7.7); Neutrophils % 62.2 %; Nucleated Red Blood Cells % 0 %; Platelet Count 292 10^3/cmm (130-400); Red Blood Count 4.91 10^6/uL (4.1-5.3); Red Cell Distribution Width 15.1 % (12.1-15.1); White Blood Count 11.4 10^3/uL (4.0-10.0)
[2020-12-06] MEDS: hydrocortisone 100 mg/2 mL SDV IVP (23:19)
[2020-12-06] MEDS: diphenhydrAMINE 50 mg/mL SDV 1mL IVP (23:19)
[2020-12-06 23:24] LABS: Alanine Aminotransferase 47 U/L (0-33); Albumin Level 4.2 g/dL (3.5-5.2); Alkaline Phosphatase 147 IU/L (35-105); Aspartate Amino Transferase 47 U/L (0-32); Blood Urea Nitrogen 17 mg/dL (8-23); C Reactive Protein 19.4 mg/L (0.0-4.9); Calcium 8.8 mg/dL (8.5-10.5); Carbon Dioxide 30 mmol/L (22-29); Chloride 96 mmol/L (98-107); Globulin 3.6 g/dL (1.3-4.6); Glomerular Filtration Rate 123.4 mL/min (90-130); Glucose 150 mg/dL (65-115); Lipase 19 U/L (13-60); Osmolality Calculated 288 mOsm/kg (285-295); Sodium 137 mmol/L (136-145); Total Bilirubin 0.5 mg/dL (0.15-1.2); Total Protein 7.8 g/dL (6.6-8.7)
[2020-12-06 23:26] LABS: Anion Gap 15.4 (5-19); Potassium 4.4 mmol/L (3.5-5.1)
[2020-12-06] MEDS: iodixanol 320 mg/mL 100mL Btl IV (23:39)
[2020-12-07] MEDS: azithromycin 250 mg Tablet 500 MG PO (00:48)
[2020-12-07 01:07] VITALS: BP 199/99; PULSE 98; RESP 22; O2SAT 97
== END 2020-12-07 00:50 | disposition home or self-care (01) ==
PROVIDERS: Emergency Provider Emergency Medicine; PCP Family Medicine
DX: K59.00 Constipation, unspecified (principal); J18.9 Pneumonia, unspecified organism; Z79.82 Long term (current) use of aspirin; J44.9 Chronic obstructive pulmonary disease, unspecified; I10 Essential (primary) hypertension; Z87.891 Personal history of nicotine dependence
CPT/HCPCS: 71275; 80053; 83690; 85025; 86140; 96374; 96375; 99284; J1200; J1720; J2270; J2405; Q0144; Q9967

== ENCOUNTER 2021-07-09 23:02 | Emergency (ER) | payer MEDICARE, MEDICAID, SELFPAY ==
[2021-07-09 23:29] VITALS: BP 163/91; PULSE 93; RESP 24; TEMP 36.4; O2SAT 91; BMI 52.7
--- NOTE | 2021-07-10 00:24 | XRR_ITS ---
PROCEDURE INFORMATION: Exam: XR Abdomen Exam date and time: 07/10/2021 12:24 AM Age: 66 years old Clinical indication: Abdominal pain; Generalized; Additional info: Abd pain constipation TECHNIQUE: Imaging protocol: XR of the abdomen. Views: Frontal supine view of the abdomen. 1 View. COMPARISON: CT kidney stone [id number] 12/06/2020 12:46 AM FINDINGS: Gastrointestinal tract: Moderate stool is present within the colon. Bones/joints: Unremarkable. Soft tissues: Resolution is limited secondary to body habitus and quantum mottle. XR/XR KUB portable [id number] IMPRESSION: Moderate stool present within the colon. Radiation Dose CTDIVOL = (mGy): DLP = (mGy-cm)
[2021-07-10 01:32] LABS: Basophils % 0.3 %; Hematocrit 39.9 % (37.0-47.0); Hemoglobin 12.8 g/dL (11.5-15.3); Lymphocytes # 1.4 10^3/uL (0.8-4.8); Lymphocytes % 20.4 %; Mean Corpuscular HGB Conc 32.1 g/dL (30.0-36.0); Mean Corpuscular Hemoglobin 28.6 pg (28.0-34.0); Mean Corpuscular Volume 89.1 fl (81-99); Mean Platelet Volume 11.4 fL (7.4-10.4); Monocytes # 0.7 10^3/uL (0.2-0.9); Monocytes % 10.3 %; Neutrophils # 4.66 10^3/uL (1.8-7.7); Neutrophils % 68.6 %; Nucleated Red Blood Cells % 0 %; Platelet Count 169 10^3/cmm (130-400); Red Blood Count 4.48 10^6/uL (4.1-5.3); Red Cell Distribution Width 14.9 % (12.1-15.1); White Blood Count 6.8 10^3/uL (4.0-10.0)
[2021-07-10 01:46] LABS: Lactate (Lactic Acid level) 0.8 mmol/L (0.5-2.2)
[2021-07-10 01:47] LABS: Alanine Aminotransferase 35 U/L (0-33); Albumin Level 3.7 g/dL (3.5-5.2); Alkaline Phosphatase 100 IU/L (35-105); Anion Gap 14.6 (5-19); Aspartate Amino Transferase 45 U/L (0-32); Blood Urea Nitrogen 8 mg/dL (8-23); C Reactive Protein 43.3 mg/L (0.0-4.9); Calcium 8.2 mg/dL (8.5-10.5); Carbon Dioxide 30 mmol/L (22-29); Chloride 91 mmol/L (98-107); Globulin 3.7 g/dL (1.3-4.6); Glomerular Filtration Rate 221.9 mL/min (90-130); Glucose 145 mg/dL (65-115); Lipase 32 U/L (13-60); Osmolality Calculated 275 mOsm/kg (285-295); Potassium 3.6 mmol/L (3.5-5.1); Sodium 132 mmol/L (136-145); Total Bilirubin 0.5 mg/dL (0.15-1.2); Total Protein 7.4 g/dL (6.6-8.7)
--- NOTE | 2021-07-10 02:02 | ED_ITS ---
HPI - Abdominal Pain General: Chief Complaint: Abdominal Pain Stated Complaint: CONSTIPATION Time Seen by Provider: 07/10/21 00:24 History of Present Illness: HPI narrative: 66-year-old female with a history of diverticulosis. She presents with generalized belly pain, inability to have a bowel movement for several days. She has had nausea. No vomiting. No blood in the stool. No fever pain increases with movement. MD elicited complaint: abdominal pain Pertinent past history: constipation and other Onset (ago): day(s) Pain Consistency: intermittent Location: Diffuse Severity: moderate Quality: cramping Radiation: none Migration to: no migration Exacerbating factors: nothing Relieving factors: nothing Associated Symptoms: Reports change in bowel habits, change in stool character, constipation and nausea; Denies bloating, coffee ground emesis, diarrhea, dysuria, fever(s), hematochezia and vomiting Review of Systems Const: Denies: fever(s) Card: Denies: chest pain or palpitations Resp: Reports: dyspnea (Chronic) GI: Reports: nausea, constipation, change in bowel habits and change in stool character; Denies: vomiting, coffee ground emesis, diarrhea, bloating or hematochezia : Denies: dysuria PFSH ED PFSH: Medical History (Updated 07/10/21 @ 03:42 by Rishabh Mccarthy DO) Arthritis COPD (chronic obstructive pulmonary disease) Enrolled in chronic care management Essential hypertension Hyperglycemia without ketosis Social History Smoking and tobacco status: former smoker Quit status (tobacco): has quit using tobacco Year quit tobacco: 2017 Physical Exam Const: GENERAL APPEARANCE: cooperative and comfortable; not ill appearing NUTRITIONAL APPEARANCE: obese ORIENTATION/CONSCIOUSNESS: Yes awake HENMT: COMMON NORMALS: normocephalic and atraumatic HEAD & SCALP: normocephalic and atraumatic FACE & SINUS: normal facial exam Chest: COMMONS NORMALS: normal inspection of the chest Cardio: COMMON NORMALS: regular rate and regular rhythm RATE: regular rate RHYTHM: regular rhythm GI: COMMON NORMALS: Normal to inspection, nondistended, normoactive bowel sounds present and Soft to palpation PALPATION: Yes Soft to palpation and Yes Tenderness to palpation present (GI) (Diffuse) Course Vital Signs: Vital signs: Vital Signs Temperature 97.5 F L 07/09/21 23:29 Pulse Rate 93 11/12/21 23:29 Respiratory Rate 24 H 07/09/21 23:29 Blood Pressure 163/91 07/09/21 23:29 Pulse Oximetry 91 07/09/21 23:29 MDM - Abdominal Pain MDM Narrative: Medical decision making narrative: No vomiting here. Belly exam is essentially benign. White count 6.8. CRP is mildly elevated. BMP is not remarkable. Liver enzymes negative KUB shows an increased stool burden. She will be allowed discharge with treatment for constipation Lab Data: Labs: Lab Results 07/10/21 07/10/21 07/10/21 01:11 01:11 01:11 WBC 6.8 10^3/uL 10^3/ uL (4.0-10.0) RBC 4.48 10^6/uL 10^6 /uL (4.1-5.3) Hgb 12.8 g/dL g/dL (11.5-15.3) Hct 39.9 % % (37.0-47.0) MCV 89.1 fl fl (81-99) MCH 28.6 pg pg (28.0-34.0) MCHC 32.1 g/dL g/dL (30.0-36.0) RDW 14.9 % % (12.1-15.1) Plt Count 169 10^3/cmm 10^3 /cmm (130-400) MPV 11.4 fL H fL (7.4-10.4) Neut % (Auto) 68.6 % % Lymph % (Auto) 20.4 % % [place] % (Auto) 10.3 % % Eos % (Auto) 0.0 % % Baso % (Auto) 0.3 % % Neut # (Auto) 4.66 10^3/uL 10^3 /uL (1.8-7.7) Lymph # (Auto) 1.4 10^3/uL 10^3/ uL (0.8-4.8) [place] # (Auto) 0.7 10^3/uL 10^3/ uL (0.2-0.9) Eos # (Auto) 0.0 10^3/uL 10^3/ uL (0.0-0.8) Baso # (Auto) 0.0 10^3/uL 10^3/ uL (0.0-0.1) Nucleated RBC % (a uto) 0 % % Nucleated RBCs # 0.0 /100WBC /100W BC Sodium 132 mmol/L L mmol /L (136-145) Potassium 3.6 mmol/L mmol/L (3.5-5.1) Chloride 91 mmol/L L mmol/ L (98-107) Carbon Dioxide 30 mmol/L H mmol/ L (22-29) Anion Gap 14.6 (5-19) BUN 8 mg/dL mg/dL (8-23) Creatinine 0.3 mg/dL L mg/dL (0.5-0.9) GFR Calculation 221.9 mL/min H mL /min (90-130) Glucose 145 mg/dL H mg/dL (65-115) Calculated Osmolal ity 275 mOsm/kg L mOs m/kg (285-295) Lactate 0.8 mmol/L mmol/L (0.5-2.2) Calcium 8.2 mg/dL L mg/dL (8.5-10.5) Total Bilirubin 0.5 mg/dL mg/dL (0.15-1.2) AST 45 U/L H U/L (0-32) ALT 35 U/L H U/L (0-33) Alkaline Phosphata se 100 IU/L IU/L (35-105) C-Reactive Protein 43.3 mg/L H mg/L (0.0-4.9) Total Protein 7.4 g/dL g/dL (6.6-8.7) Albumin 3.7 g/dL g/dL (3.5-5.2) Globulin 3.7 g/dL g/dL (1.3-4.6) Lipase 32 U/L U/L (13-60) Urine Color Urine Appearance Urine pH Ur Specific Gravit y Urine Protein Urine Glucose (UA) Urine Ketones Urine Blood Urine Nitrate Urine Bilirubin Urine Urobilinogen Ur Leukocyte Mckayla ase Urine RBC Urine WBC Ur Squamous Epith Cells Amorphous Sediment Urine Bacteria Urine Mucus Urine Yeast 07/10/21 02:38 WBC RBC Hgb Hct MCV MCH MCHC RDW Plt Count MPV Neut % (Auto) Lymph % (Auto) [place] % (Auto) Eos % (Auto) Baso % (Auto) Neut # (Auto) Lymph # (Auto) [place] # (Auto) Eos # (Auto) Baso # (Auto) Nucleated RBC % (a uto) Nucleated RBCs # Sodium Potassium Chloride Carbon Dioxide Anion Gap BUN Creatinine GFR Calculation Glucose Calculated Osmolal ity Lactate Calcium Total Bilirubin AST ALT Alkaline Phosphata se C-Reactive Protein Total Protein Albumin Globulin Lipase Urine Color Yellow (Yellow) Urine Appearance Clear (CLEAR) Urine pH 5 (5-7) Ur Specific Gravit y 1.020 (1.005-1.030) Urine Protein Trace (Negative) Urine Glucose (UA) Norm (Normal) Urine Ketones Negative (Negative) Urine Blood 2+ H (Negative) Urine Nitrate Negative (Negative) Urine Bilirubin Neg (Negative) Urine Urobilinogen Norm mg/dL mg/dL (Negative) Ur Leukocyte Mckayla ase 1+ H (Negative) Urine RBC 5-10 /hpf H /hpf (0-2) Urine WBC 15-25 /hpf H /hpf (0-5) Ur Squamous Epith Cells 15-25 /hpf H /hpf (0-5) Amorphous Sediment Not Reportable Urine Bacteria 1+ /hpf H /hpf (NONE) Urine Mucus 3+ /hpf /hpf Urine Yeast Trace /hpf /hpf Discharge Plan Discharge Patient Disposition: Home Clinical Impression: Constipation Qualifiers: Constipation type: unspecified constipation type Qualified Code(s): K59.00 - Constipation, unspecified Condition: Stable Prescriptions: No Action albuterol sulfate 2.5 mg /3 mL (0.083 %) solution for nebulization 2.5 mg INHALATION QID PRNRF: 0 aspirin [Adult Aspirin Regimen] 81 mg tablet,delayed release (DR/EC) 81 mg PO DAILY RF: 0 (DME) oxygen See Rx Instructions .Route .MEDSUPPLY Qty: 1 RF: 0 Combivent Respimat 20-100 mcg/actuation mist 1 puff inhalation QID Qty: 4 RF: 0 diltiazem HCl 360 mg capsule,extended release 24 hr 360 mg PO DAILY Qty: 30 RF: 5 nystatin 100,000 unit/gram cream 1 applic TOPICAL BID Qty: 30 RF: 5 mupirocin 2 % ointment 1 applic topical BID Qty: 15 RF: 5 Discharge Orders: Discharge ED (Routine); Ordered 07/10/21 Ordered By: Rishabh Mccarthy Referrals: Brain Wright DO [Primary Care Provider] - 1-3 days Discharge Activity: Increase activity as tolerated Patient Instructions: Constipation (ED) Activity Restrictions/Additional Instructions: Monitor temperatures closely, return for fever greater than 100, worsening pain despite treatment, vomiting liquids or medications, any other concerning symptoms. Coding Level of Care Code ED Loading Unit Tool Setter for [place] Fwd Exam Detailed
[2021-07-10 02:59] LABS: Add Urine Microscopic? YES; Bilirubin Urine Neg (Negative); Blood Urine 2+ (Negative); Glucose Urine UA Norm (Normal); Ketones Urine Negative (Negative); Leukocyte Esterase Urine 1+ (Negative); Nitrate Urine Negative (Negative); Protein Urine Trace (Negative); Urine Appearance Clear (CLEAR); Urine Color Yellow (Yellow); Urobilinogen Urine Norm (Negative); pH Urine 5 (5-7)
[2021-07-10 03:00] LABS: Add Urine Culture? No; Bacteria Urine 1+ /hpf; Mucus Urine 3+ /hpf; Squamous Epithelial Cell Urine 15-25 /hpf (0-5); WBC Urine 15-25 /hpf (0-5)
[2021-07-10] MEDS: ketorolac 30 mg/mL INJ 15 MG IVP (04:09)
[2021-07-10] MEDS: magnesium citrate Btl 296 mL PO (04:09)
[2021-07-10 05:15] VITALS: BP 160/78; PULSE 88; RESP 18; O2SAT 96
== END 2021-07-10 05:24 | disposition home or self-care (01) ==
PROVIDERS: Emergency Provider Emergency Medicine; PCP Family Medicine
DX: K59.00 Constipation, unspecified (principal); Z79.82 Long term (current) use of aspirin; J44.9 Chronic obstructive pulmonary disease, unspecified; I10 Essential (primary) hypertension; Z87.891 Personal history of nicotine dependence
CPT/HCPCS: 74018; 80053; 81001; 83605; 83690; 85025; 86140; 96374; 99283; J1885

== ENCOUNTER 2021-07-11 10:17 | Inpatient (IN) | payer MEDICARE, MEDICAID, SELFPAY ==
[2021-07-11] VITALS (11 sets, daily range): BP systolic 154–180; BP diastolic 72–80; PULSE 72–91; RESP 16–30; TEMP 36.7–37.2; O2SAT 90–95; BMI 52.9
--- NOTE | 2021-07-11 10:24 | XRR_ITS ---
PROCEDURE INFORMATION: Exam: XR Chest Exam date and time: 07/11/2021 10:24 AM Age: 66 years old Clinical indication: Shortness of breath; Additional info: SOB TECHNIQUE: Imaging protocol: XR of the chest. Views: 1 view. Total images: 1 COMPARISON: CT angio chest PE protcl [id number] 12/06/2020 11:47 PM FINDINGS: Lungs: Bilateral predominantly peripheral and basilar patchy airspace densities, favoring pneumonia, possibly atypical pneumonia. Pleural spaces: Unremarkable. No pleural effusion. No pneumothorax. Heart/Mediastinum: Mild cardiomegaly. Vasculature: Atherosclerosis is evident. 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 Spinal degenerative changes are evident. XR/XR chest 1V portable [id number] IMPRESSION: 1. Bilateral predominantly peripheral and basilar patchy airspace densities, favoring pneumonia, possibly atypical pneumonia. 2. Mild cardiomegaly. Radiation Dose CTDIVOL = (mGy): DLP = (mGy-cm)
--- NOTE | 2021-07-11 10:25 | ECG_ITS ---
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 Measurements Intervals [place] Rate: 86 P: 7 [place]: 149 QRS: 14 QRSD: 102 T: 53 QT: 387 QTc: 464 Interpretive Statements SINUS RHYTHM Compared to ECG 08/28/2017 12:10:57 No significant changes Electronically Signed On 07-11-2021 13:12:09 MEAT PICKLER by Caryl Oliveros M.D. [id number] f
--- NOTE | 2021-07-11 10:26 | W.ED.SOB ---
HPI - SOB/Dyspnea General: Chief Complaint: Shortness of Breath/Dyspnea Stated Complaint: RESP DISTRESS Time Seen by Provider: 07/11/21 10:20 History of Present Illness: HPI Narrative: 66-year-old female with history of COPD presents with shortness of breath. States this started last night. Recently seen for abdominal pain denies any continuing pain at the moment. Does report her chest feels tight but denies chest pain. States this feels similar to previous COPD flares. Sister recently diagnosed with Covid. Per EMS she required 15 L by nasal cannula to maintain oxygen saturation in the mid 90s and was saturating at the mid 80s on her baseline home 2 L. Denies any lower extremity pain or swelling. Review of Systems Narrative: - CONSTITUTIONAL: Denies weight loss, fever and chills. - HEENT: Denies changes in vision and hearing. - RESPIRATORY: As above. - CV: Denies palpitations and CP. - GI: Denies abdominal pain, nausea, vomiting and diarrhea. - : Denies dysuria and urinary frequency. - MSK: Denies myalgia and joint pain. - SKIN: Denies rash and pruritus. - NEUROLOGICAL: Denies headache, weakness, numbness and syncope. - PSYCHIATRIC: Denies suicidal ideation [facility] ED PFSH: Medical History (Updated 07/10/21 @ 03:42 by Rishabh Mccarthy DO) Arthritis COPD (chronic obstructive pulmonary disease) Enrolled in chronic care management Essential hypertension Hyperglycemia without ketosis Social History Smoking and tobacco status: former smoker Quit status (tobacco): has quit using tobacco Year quit tobacco: 2017 Physical Exam Narrative: EXAM NARRATIVE: - GENERAL: Alert and oriented x 3. No acute distress. Well-nourished. - EYES: EOMI. Anicteric. - HENT: Atraumatic, no C-spine tenderness. Moist mucous membranes. No scleral icterus. No cervical lymphadenopathy. - LUNGS: On nasal cannula, bilateral wheezes present. - CARDIOVASCULAR: Regular rate and rhythm. No murmur. No JVD. - ABDOMEN: Soft, non-tender and non-distended. Negative CVA tenderness bilaterally, no rebound or guarding, negative Chaney sign. No palpable masses. - EXTREMITIES: No edema. Non-tender. - SKIN: No rashes or lesions. Warm. - NEUROLOGIC: No meningismus or focal neurological deficits. CN II-XII grossly intact. - PSYCHIATRIC: Cooperative. Appropriate mood and affect. Course Vital Signs: Vital signs: Vital Signs Temperature 99 F 07/11/21 10:22 Pulse Rate 81 07/11/21 11:12 Respiratory Rate 21 H 07/11/21 11:06 Blood Pressure 154/72 07/11/21 10:22 Pulse Oximetry 91 07/11/21 11:06 MDM - SOB/Dyspnea MDM Narrative: Medical decision making narrative: 66-year-old female history of COPD presents with shortness of breath. Denies active pain but does endorse tightness in her chest that she states feels like previous COPD flares. EKG and troponin not revealing sign of acute ischemia or other acute abnormality. Does have bilateral wheezing and is desaturating requiring high flow nasal cannula. ABG does not reveal significant CO2 retention. Improved with albuterol and steroids but unable to wean off of nasal cannula. D-dimer is elevated but patient refuses CT scan. Attempted to offer her multiple measures to make the CT more tolerable but she refuses. Extensively discussed risks and patient is adamant in her refusal and I do believe she has capacity to make this decision. She does not appear to be mentally altered. Covid swab is positive. Remainder of lab work and imaging reviewed. Discussed with hospitalist and they agreed patient would benefit from admission. Patient admitted in stable condition. Further evaluation management per hospitalist team. Lab Data: Labs: Lab Results 07/11/21 07/11/21 07/11/21 10:25 10:26 10:32 WBC 9.1 10^3/uL 10^3/ uL (4.0-10.0) RBC 4.37 10^6/uL 10^6 /uL (4.1-5.3) Hgb 12.4 g/dL g/dL (11.5-15.3) Hct 38.6 % % (37.0-47.0) MCV 88.3 fl fl (81-99) MCH 28.4 pg pg (28.0-34.0) MCHC 32.1 g/dL g/dL (30.0-36.0) RDW 14.9 % % (12.1-15.1) Plt Count 185 10^3/cmm 10^3 /cmm (130-400) MPV 11.4 fL H fL (7.4-10.4) Neut % (Auto) 73.2 % % Lymph % (Auto) 17.2 % % [place] % (Auto) 9.0 % % Eos % (Auto) 0.0 % % Baso % (Auto) 0.2 % % Neut # (Auto) 6.63 10^3/uL 10^3 /uL (1.8-7.7) Lymph # (Auto) 1.6 10^3/uL 10^3/ uL (0.8-4.8) [place] # (Auto) 0.8 10^3/uL 10^3/ uL (0.2-0.9) Eos # (Auto) 0.0 10^3/uL 10^3/ uL (0.0-0.8) Baso # (Auto) 0.0 10^3/uL 10^3/ uL (0.0-0.1) Nucleated RBC % (a uto) 0 % % Nucleated RBCs # 0.0 /100WBC /100W BC D-Dimer Specimen Type Arterial Sample Site Radial, left ABG pH 7.49 H (7.35-7.45) ABG pCO2 46.3 mmHg H mmHg (35-45) ABG pO2 48.0 mmHg L mmHg (80.0-100.0) ABG HCO3 35.1 mmol/L H mmo l/L (22-26) ABG O2 Saturation 87.0 ABG Base Excess 10.4 mmol/L H mmo l/L (-2.0-2.0) Artemio Test Pos A-a O2 Gradient 28.2 mmHg H mmHg (5-10) Hematocrit 38.9 % % (37-47) Hgb O2 Saturation 85.4 % L % (95-100) Carboxyhemoglobin 1.1 %THgb %THgb (0.4-20.1) Methemoglobin 0.7 % % (0.4-1.5) Total Hemoglobin 12.7 g/dL g/dL (12-16) Sodium 130.0 mmol/L L mm ol/L (131-143) Potassium 3.6 mmol/L mmol/L (3.5-5.0) Glucose 170.0 mg/dL H mg/ dL (70-115) Ionized Calcium 1.1 mmol/L mmol/L (1.1-1.4) O2 Delivery Device Nc O2 Liters/Min 6.0 % % FiO2 45.0 % % Silverware Buffer ID [place] Chloride Carbon Dioxide Anion Gap BUN Creatinine GFR Calculation Calculated Osmolal ity Calcium Total Bilirubin AST ALT Alkaline Phosphata se Troponin T Baselin e NT-Pro-B Natriuret Pep Total Protein Albumin Globulin SARS-CoV-2 Ag (Rap id) Positive H (Negative) 07/11/21 07/11/21 07/11/21 10:32 10:32 10:32 WBC RBC Hgb Hct MCV MCH MCHC RDW Plt Count MPV Neut % (Auto) Lymph % (Auto) [place] % (Auto) Eos % (Auto) Baso % (Auto) Neut # (Auto) Lymph # (Auto) [place] # (Auto) Eos # (Auto) Baso # (Auto) Nucleated RBC % (a uto) Nucleated RBCs # D-Dimer 1.16 ug/mIFEU H u g/mIFEU (0-0.59) Specimen Type Sample Site ABG pH ABG pCO2 ABG pO2 ABG HCO3 ABG O2 Saturation ABG Base Excess Artemio Test A-a O2 Gradient Hematocrit Hgb O2 Saturation Carboxyhemoglobin Methemoglobin Total Hemoglobin Sodium 130 mmol/L L mmol /L (136-145) Potassium 3.8 mmol/L mmol/L (3.5-5.1) Glucose 165 mg/dL H mg/dL (65-115) Ionized Calcium O2 Delivery Device O2 Liters/Min FiO2 Silverware Buffer ID Chloride 88 mmol/L L mmol/ L (98-107) Carbon Dioxide 32 mmol/L H mmol/ L (22-29) Anion Gap 13.8 (5-19) BUN 11 mg/dL mg/dL (8-23) Creatinine 0.4 mg/dL L mg/dL (0.5-0.9) GFR Calculation 159.2 mL/min H mL /min (90-130) Calculated Osmolal ity 273 mOsm/kg L mOs m/kg (285-295) Calcium 8.1 mg/dL L mg/dL (8.5-10.5) Total Bilirubin 0.6 mg/dL mg/dL (0.15-1.2) AST 51 U/L H U/L (0-32) ALT 35 U/L H U/L (0-33) Alkaline Phosphata se 101 IU/L IU/L (35-105) Troponin T Baselin e 18 ng/L H ng/L (0-10) NT-Pro-B Natriuret Pep 757 pg/mL H pg/mL (0-125) Total Protein 6.5 g/dL L g/dL (6.6-8.7) Albumin 3.7 g/dL g/dL (3.5-5.2) Globulin 2.8 g/dL g/dL (1.3-4.6) SARS-CoV-2 Ag (Rap id) EKG Data^: EKG 1: Other EKG Comments: Sinus rhythm rate of 86, no sign of acute ischemia or other acute abnormality. Critical Care Time Critical Care Time: Critical Care Time: Yes Total Critical Care Time: 30 Attestation: This case had a high probability of a clinically significant, sudden, or life threatening deterioration of this patient's condition which required my full and direct attention, intervention and personal management. Discharge Plan Discharge Prescriptions: No Action albuterol sulfate 2.5 mg /3 mL (0.083 %) solution for nebulization 2.5 mg INHALATION QID PRNRF: 0 aspirin [Adult Aspirin Regimen] 81 mg tablet,delayed release (DR/EC) 81 mg PO DAILY RF: 0 (DME) oxygen See Rx Instructions .Route .MEDSUPPLY Qty: 1 RF: 0 Combivent Respimat 20-100 mcg/actuation mist 1 puff inhalation QID Qty: 4 RF: 0 diltiazem HCl 360 mg capsule,extended release 24 hr 360 mg PO DAILY Qty: 30 RF: 5 nystatin 100,000 unit/gram cream 1 applic TOPICAL BID Qty: 30 RF: 5 mupirocin 2 % ointment 1 applic topical BID Qty: 15 RF: 5 Coding Level of Care Code ED Allergist Immunologist for Chg Juan Jose
[2021-07-11 10:38] LABS: ABG PCO2 46.3 mmHg (35-45); ABG PH Result 7.49 (7.35-7.45); Alveolar-Arterial Oxygen Gradi 28.2 mmHg (5-10); Arterial Blood Gas Hematocrit 38.9 % (37-47); Base Excess ABG 10.4 mmol/L (-2.0-2.0); Blood Gas Allen Test Pos; Blood Gas Operator Identificat MONRO; Blood Gas Sample Site Radial, left; Blood Gas Sample Type Arterial; Carboxyhemoglobin 1.1 %THgb (0.4-20.1); HCO3 ABG 35.1 mmol/L (22-26); HGB O2 Sat 85.4 % (95-100); Ionized Calcium Level - ABG 1.1 mmol/L (1.1-1.4); Methemoglobin 0.7 % (0.4-1.5); Oxygen Device NC; Potassium Level - ABG 3.6 mmol/L (3.5-5.0); Total Hemoglobin 12.7 g/dL (12-16)
--- NOTE | 2021-07-11 10:43 | PC.NURSE ---
Pt placed on cafeteria monitor upon bedding.
[2021-07-11 10:45] LABS: Basophils % 0.2 %; Hematocrit 38.6 % (37.0-47.0); Hemoglobin 12.4 g/dL (11.5-15.3); Lymphocytes # 1.6 10^3/uL (0.8-4.8); Lymphocytes % 17.2 %; Mean Corpuscular HGB Conc 32.1 g/dL (30.0-36.0); Mean Corpuscular Hemoglobin 28.4 pg (28.0-34.0); Mean Corpuscular Volume 88.3 fl (81-99); Mean Platelet Volume 11.4 fL (7.4-10.4); Monocytes # 0.8 10^3/uL (0.2-0.9); Neutrophils # 6.63 10^3/uL (1.8-7.7); Neutrophils % 73.2 %; Nucleated Red Blood Cells % 0 %; Platelet Count 185 10^3/cmm (130-400); Red Blood Count 4.37 10^6/uL (4.1-5.3); Red Cell Distribution Width 14.9 % (12.1-15.1); White Blood Count 9.1 10^3/uL (4.0-10.0)
[2021-07-11 11:01] LABS: D Dimer 1.16 ug/mIFEU (0-0.59)
[2021-07-11 11:04] LABS: Troponin(5th) Baseline 18 ng/L (0-10)
[2021-07-11] MEDS: ipratropium-albuterol 3 mL Neb INHALATION ×2 (11:05→20:21)
[2021-07-11 11:12] LABS: SARS Covid-2 Antigen Positive (Negative)
[2021-07-11 11:13] LABS: Alanine Aminotransferase 35 U/L (0-33); Albumin Level 3.7 g/dL (3.5-5.2); Alkaline Phosphatase 101 IU/L (35-105); Anion Gap 13.8 (5-19); Aspartate Amino Transferase 51 U/L (0-32); Blood Urea Nitrogen 11 mg/dL (8-23); Calcium 8.1 mg/dL (8.5-10.5); Carbon Dioxide 32 mmol/L (22-29); Chloride 88 mmol/L (98-107); Globulin 2.8 g/dL (1.3-4.6); Glomerular Filtration Rate 159.2 mL/min (90-130); Glucose 165 mg/dL (65-115); NT Pro B Type Natriuretic Pept 757 pg/mL (0-125); Osmolality Calculated 273 mOsm/kg (285-295); Potassium 3.8 mmol/L (3.5-5.1); Sodium 130 mmol/L (136-145); Total Bilirubin 0.6 mg/dL (0.15-1.2); Total Protein 6.5 g/dL (6.6-8.7)
[2021-07-11 11:39] LABS: Slide Review Slide Review Perform
--- NOTE | 2021-07-11 11:39 | PC.NURSE ---
Pt goes to CT and refuses stating that she can't lay flat for the scan. ERP orders medication for pt. This RN explains to pt the medication will help her to relax and how important the scan is. Pt continues to refuse. ERP notified.
--- NOTE | 2021-07-11 12:25 | ECG_ITS ---
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 Measurements Intervals [place] Rate: 78 P: -5 [place]: 154 QRS: 12 QRSD: 106 T: 48 QT: 406 QTc: 464 Interpretive Statements SINUS RHYTHM Compared to ECG 07/11/2021 10:29:32 No significant changes Electronically Signed On 07-11-2021 13:22:23 VEHICLE INSURANCE AGENT by Caryl Oliveros M.D. [id number]
[2021-07-11] MEDS: acetaminophen 325 mg Tablet 650 MG PO (12:37)
[2021-07-11 13:01] LABS: Troponin 5 2HR 17.75 ng/L (0-10)
[2021-07-11 13:02] LABS: Troponin 5 2HR Delta -0.25 ABS# (0-10)
--- NOTE | 2021-07-11 16:19 | P.HP_ITS ---
Providers/Chief Complaint Admitting Physician: Andrez Strange MD Primary Care Provider: Brain Wright DO Chief Complaint: RESP DISTRESS History of Present Illness Katie Eddy is a 66 year old female with past medical history of hypertension, COPD on 2 ls home oxygen, came in with chief complaint of worsening shortness of breath , cough generalized fatigue and weakness going on for the last few days.Sister recently diagnosed with Covid. Per EMS she required 15 L by nasal cannula to maintain oxygen saturation in the mid 90s and was saturating at the mid 80s on her baseline home 2 L. She denied any chest, abdominal pain , nausea , vomiting, urinary complaints. Upon arrival in the ER she was worked up for above-mentioned complaint: Pertinent imaging studies: X-ray chest: Bilateral infiltrates in both the lung field, predominantly peripheral and basilar. Pertinent labs: WBC 9.1, H&H:12.4,38.6, plt: 185 serum sodium, 137 potassium 3.8, BUN / serum creatinine: 11/0.4 , troponin trend without significant delta, proBNP 757, CRP 43, D-dimer:1.16 , rapid Covid antigen positive: ABG: pH 7.49 PCO2 46 PO2 48 , FiO2 45% Review of Systems Const: Denies: diaphoresis Card: Denies: edema or swelling of feet/ankles Resp: Denies: pain on inspiration GI: Denies: abdominal pain, nausea, vomiting, diarrhea or constipation : Denies: flank pain Musc: Denies: back pain, extremity pain or extremity swelling Neuro: Denies: headache(s), difficulty walking or confusion Medications/Allergies Home Medications Medication Instructions Recorded Confirmed Last Taken Type albuterol sulfate 2.5 mg INHALATION QID PRN 10/29/19 07/11/21 Unknown History aspirin 81 mg tablet,delayed 81 mg PO DAILY 10/29/19 07/11/21 07/10/21 History release oxygen #1 ea 10/26/20 07/11/21 Unknown Rx ipratropium 20 mcg-albuterol 100 1 puff INHALATION QID #4 g 12/18/20 07/11/21 Unknown Rx mcg/actuation mist for inhalation diltiazem HCl 360 mg capsule,24 360 mg PO DAILY #30 cap 01/26/21 07/11/21 07/10/21 Rx hr,extended release nystatin 100,000 unit/gram topical 1 applic TOPICAL BID #30 g 04/26/21 07/11/21 Unknown Rx cream mupirocin 2 % topical ointment 1 applic TOPICAL BID #15 g 05/12/21 07/11/21 Unknown Rx Allergies Allergy/AdvReac Type Severity Reaction Status Date / Time amoxicillin [From Augmentin] Allergy ALGY-Hives Verified 07/11/21 10:21 clavulanic acid Allergy ALGY-Hives Verified 07/11/21 10:21 [From Augmentin] doxycycline Allergy Unknown Verified 07/11/21 10:21 nicotine [From Nicotrol] Allergy Unknown Verified 07/11/21 10:21 Penicillins Allergy ALGY-Hives Verified 07/11/21 10:21 Sulfa (Sulfonamide Allergy ALGY-Hives Verified 07/11/21 10:21 Antibiotics) PFSH Acute PFSH: Medical History (Updated 07/11/21 @ 19:23 by Andrez Strange MD) Arthritis COPD (chronic obstructive pulmonary disease) Enrolled in chronic care management Essential hypertension Hyperglycemia without ketosis Social History Smoking and tobacco status: former smoker Quit status (tobacco): has quit using tobacco Year quit tobacco: 2016 Vitals/I&O/Wt Last Vital Signs Temp 98.3 F 07/11/21 15:21 Pulse 75 07/11/21 15:21 Resp 20 H 07/11/21 15:21 BP 168/80 07/11/21 15:21 Pulse Ox 91 07/11/21 15:21 07/11/21 07/11/21 07/11/21 06:59 14:59 22:59 Output Total 250 / 250 Balance -250 / -250 Weight last 48 hrs Weight 127.006 kg Physical Exam Const: COMMON NORMALS: patient oriented x3 HENMT: COMMON NORMALS: normocephalic and atraumatic HEAD & SCALP: normocephalic and atraumatic Resp: EFFORT & INSPECTION: Yes abnormal respiratory pattern, Yes tachypneic and Yes Actively coughing OTHER: Diminished air entry bilaterally, minimal bilateral basal crypts. Cardio: COMMON NORMALS: regular rate, regular rhythm, S1 normal heart sound present, S2 normal heart sound present, No gallops present (Cardio), No murmurs present (Cardio), No rub (Cardio) and Peripheral pulses 2+ throughout RATE: regular rate RHYTHM: regular rhythm HEART SOUNDS: S1 normal heart sound present and S2 normal heart sound present PERIPHERAL PULSES: Peripheral pulses 2+ throughout GI: COMMON NORMALS: Normal to inspection, nondistended, normoactive bowel sounds present, Soft to palpation, non-tender, No hepatosplenomegaly present and no masses AUSCULTATION: Yes normoactive bowel sounds PALPATION: Yes Soft to palpation and Yes No hepatosplenomegaly present RECTAL EXAM: deferred Extremity: COMMON NORMALS: no clubbing, cyanosis or edema and no pedal edema Neuro: COMMON NORMALS: patient oriented x3 Data : 07/11/21 10:32 07/11/21 10:32 A&P Assessment and plan (1) Acute respiratory failure with hypoxia: Acute hypoxic respiratory failure secondary to Covid pneumonia: Monitor ESR CRP D-dimer LDH, ferritin. X-ray chest , ABG. Procalcitonin Dexamethasone 6 mg IV daily Remdesivir for 5 days DuoNebs Advair inhaler Ascorbic acid 1000 mg p.o. twice daily Zinc 50 mg p.o. daily Lovenox 40 mg subcu every 12 hours Empirically on ceftriaxone and azithromycin. Lasix 20 mg IV every 12 hours daily Pulmonary toilet Supplemental oxygen as needed Status: Acute (2) Pneumonia due to COVID-19 virus: Status: Acute (3) COPD (chronic obstructive pulmonary disease): Status: Acute Qualifiers: COPD type: emphysema Emphysema type: panlobular Qualified Code(s): J43.1 - Panlobular emphysema (4) Essential hypertension: Status: Acute (5) Hyponatremia: Hypovolemic hyponatremia: Will encourage p.o. intake Monitor BMP Status: Acute Additional A&P Information CODE STATUS: Full code DVT prophylaxis: Lovenox 40 subcu every 12 hourly Attestations Medical Necessity Statement*: Patient needs to be in hospital for management of respiratory failure secondary to Covid pneumonia Coding Level of Care Code Acute Color Television Console Monitor for [facility] Fwd Exam Detailed Diagnoses Acute respiratory failure with hypoxia J96.01 Pneumonia due to COVID-19 virus U07.1; J12.82 COPD (chronic obstructive pulmonary disease) J43.1 COPD type: emphysema Emphysema type: panlobular Essential hypertension I10 Hyponatremia E87.1
--- NOTE | 2021-07-11 16:25 | ECG_ITS ---
[facility] Test Date: 2021-07-11 Pat Name: Katie Eddy Department: Room: 272 Gender: Female Ginger Farmer: : 1955 Requested By: August Lilly Order Number: [id number] Lewis MD: Caryl Oliveros M.D. Measurements Intervals [place] Rate: 68 P: 38 DC: 156 QRS: 9 QRSD: 89 T: 52 QT: 402 QTc: 429 Interpretive Statements SINUS RHYTHM POSSIBLE LEFT ATRIAL ENLARGEMENT [-0.1mV P-WAVE IN V1/V2] Compared to ECG 07/11/2021 12:18:20 No significant changes Electronically Signed On 07-13-2021 13:07:28 CHEMISTRY INSTRUCTOR by Caryl Oliveros M.D. [email or web address]
[2021-07-11 17:31] LABS: Troponin 5 6HR 15.28 ng/L (0-10)
[2021-07-11 17:34] LABS: Troponin 5 6HR Delta -2.72 ng/L (0-12)
[2021-07-11] MEDS: FUROsemide 10 mg/mL SDV 2mL 20 MG IVP (18:26)
[2021-07-11] MEDS: ascorbic acid 500 mg Tablet 1000 MG PO (18:39)
[2021-07-11] MEDS: enoxaparin 40 mg/0.4 mL Syringe SUBCUT (18:39)
[2021-07-11] MEDS: remdesivir 200 MG in sodium chloride 0.9% (100 ml) 60 ML 100 MG IV (18:40)
[2021-07-11] MEDS: cefTRIAXone 1,000 MG in sodium chloride 0.9% (plus) 50 ML 100 MG IV (20:39)
[2021-07-11] MEDS: azithromycin 500 MG in sodium chloride 0.9% 250 ML 250 MG IV (21:37)
[2021-07-12] VITALS (11 sets, daily range): BP systolic 145–162; BP diastolic 69–88; PULSE 70–87; RESP 16–22; TEMP 36.2–36.9; O2SAT 88–93
[2021-07-12] MEDS: ipratropium-albuterol 3 mL Neb INHALATION ×3 (03:10→21:14)
[2021-07-12] MEDS: FUROsemide 10 mg/mL SDV 2mL 20 MG IVP ×2 (04:03→04:04)
[2021-07-12] MEDS: enoxaparin 40 mg/0.4 mL Syringe SUBCUT ×2 (05:06→17:44)
[2021-07-12 06:01] LABS: Basophils % 0.1 %; Hemoglobin 12.8 g/dL (11.5-15.3); Lymphocytes % 13.8 %; Mean Corpuscular Hemoglobin 28.7 pg (28.0-34.0); Mean Corpuscular Volume 89.7 fl (81-99); Mean Platelet Volume 11.4 fL (7.4-10.4); Monocytes # 0.6 10^3/uL (0.2-0.9); Monocytes % 8.2 %; Neutrophils # 5.46 10^3/uL (1.8-7.7); Neutrophils % 77.1 %; Nucleated Red Blood Cells % 0 %; Platelet Count 208 10^3/cmm (130-400); Red Blood Count 4.46 10^6/uL (4.1-5.3); Red Cell Distribution Width 14.8 % (12.1-15.1); White Blood Count 7.1 10^3/uL (4.0-10.0)
[2021-07-12 06:15] LABS: INR 1.01 (0.8-1.2); Partial Thromboplastin Time 33.2 SECONDS (23.9-36.7)
[2021-07-12 06:24] LABS: Alanine Aminotransferase 35 U/L (0-33); Albumin Level 3.3 g/dL (3.5-5.2); Alkaline Phosphatase 99 IU/L (35-105); Anion Gap 13.3 (5-19); Aspartate Amino Transferase 43 U/L (0-32); Blood Urea Nitrogen 14 mg/dL (8-23); Calcium 8.1 mg/dL (8.5-10.5); Carbon Dioxide 33 mmol/L (22-29); Chloride 94 mmol/L (98-107); Globulin 3.8 g/dL (1.3-4.6); Glomerular Filtration Rate 159.2 mL/min (90-130); Glucose 164 mg/dL (65-115); Magnesium 2.1 mg/dL (1.7-2.3); Osmolality Calculated 286 mOsm/kg (285-295); Potassium 4.3 mmol/L (3.5-5.1); Sodium 136 mmol/L (136-145); Total Bilirubin 0.4 mg/dL (0.15-1.2); Total Protein 7.1 g/dL (6.6-8.7)
[2021-07-12 06:32] LABS: NT Pro B Type Natriuretic Pept 710 pg/mL (0-125); Procalcitonin 0.12 ng/mL (0-0.5)
[2021-07-12 07:31] LABS: Slide Review Slide Review Perform
[2021-07-12] MEDS: dilTIAZem ER (24HR) 180 mg Capsule 360 MG PO (08:19)
[2021-07-12] MEDS: zinc gluconate 50 mg Tablet PO (08:19)
[2021-07-12] MEDS: aspirin 81 mg EC Tablet PO (08:20)
[2021-07-12] MEDS: ascorbic acid 500 mg Tablet 1000 MG PO ×2 (08:20→17:44)
[2021-07-12] MEDS: calcium carbonate 500 mg Chew Tablet 1000 MG PO (11:13)
[2021-07-12] MEDS: dexamethasone 4 mg/mL INJ 6 MG IVP (17:44)
[2021-07-12] MEDS: remdesivir 100 MG in sodium chloride 0.9% (100 ml) 80 ML IV (17:45)
[2021-07-12] MEDS: cefTRIAXone 1,000 MG in sodium chloride 0.9% (plus) 50 ML 100 MG IV (19:28)
[2021-07-12] MEDS: azithromycin 500 MG in sodium chloride 0.9% 250 ML 250 MG IV (19:29)
--- NOTE | 2021-07-12 19:37 | PC.NURSE ---
i reported low o2 88 to nurse
[2021-07-12] MEDS: budesonide 0.5 mg/2 mL Neb INHALATION (21:13)
--- NOTE | 2021-07-12 21:50 | PM.PN ---
Subjective Subjective: Interval history: Patient's was seen this morning, she tells me that she continues to feel short of breath, remains on 12 L, no chest pain, Vitals/I&O/Wt Last Vital Signs Temp 97.8 F 07/12/21 19:36 Pulse 79 07/12/21 21:30 Resp 22 H 07/12/21 21:14 BP 162/88 07/12/21 19:36 Pulse Ox 90 07/12/21 21:14 07/12/21 07/12/21 07/12/21 06:59 14:59 22:59 Intake Total 250 / 840 720 / 720 1340 / 2060 Output Total 1000 / 1450 Balance -750 / -610 720 / 720 1340 / 2060 Weight last 48 hrs Weight 127.006 kg Physical Exam Const: COMMON NORMALS: no acute distress and patient oriented x3 HENMT: COMMON NORMALS: normocephalic HEAD & SCALP: normocephalic Resp: COMMON NORMALS: normal respiratory effort, No retractions, No use of accessory muscles and clear to auscultation bilaterally AUSCULTATION: clear to auscultation bilaterally Cardio: COMMON NORMALS: regular rate, regular rhythm, S1 normal heart sound present and S2 normal heart sound present RATE: regular rate RHYTHM: regular rhythm HEART SOUNDS: S1 normal heart sound present and S2 normal heart sound present GI: COMMON NORMALS: Normal to inspection, nondistended, normoactive bowel sounds present, Soft to palpation and non-tender PALPATION: Yes Soft to palpation Extremity: COMMON NORMALS: no pedal edema Neuro: COMMON NORMALS: patient oriented x3 Psych: COMMON NORMALS: mental status grossly normal Data : 07/12/21 05:47 07/12/21 05:47 Micro: Microbiology 07/11/21 20:20 Blood Culture - Preliminary Blood NEGATIVE TO DATE 07/11/21 20:10 Blood Culture - Preliminary Blood NEGATIVE TO DATE A&P Assessment and plan (1) Acute respiratory failure with hypoxia: Acute hypoxic respiratory failure secondary to Covid pneumonia: Dexamethasone 6 mg IV daily Remdesivir for 5 days DuoNebs Advair inhaler Ascorbic acid 1000 mg p.o. twice daily Zinc 50 mg p.o. daily Lovenox 40 mg subcu every 12 hours Empirically on ceftriaxone and azithromycin. Daily dose Lasix Pulmonary toilet Supplemental oxygen as needed Status: Acute (2) Pneumonia due to COVID-19 virus: Status: Acute (3) COPD (chronic obstructive pulmonary disease): Status: Acute Qualifiers: COPD type: emphysema Emphysema type: panlobular Qualified Code(s): J43.1 - Panlobular emphysema (4) Essential hypertension: Status: Acute (5) Hyponatremia: Hypovolemic hyponatremia: Will encourage p.o. intake Monitor BMP Status: Acute (6) Transaminitis: Status: Acute Additional A&P Information CODE STATUS: Full code DVT prophylaxis: Lovenox 40 subcu every 12 hourly Attestations Medical Necessity Statement*: Patient requires hospitalization for acute respiratory failure with hypoxia secondary COVID-19 Coding Level of Care Code Acute Emergency Veterinary Assistant for [facility] Diagnoses Acute respiratory failure with hypoxia J96.01 Pneumonia due to COVID-19 virus U07.1; J12.82 COPD (chronic obstructive pulmonary disease) J43.1 COPD type: emphysema Emphysema type: panlobular Essential hypertension I10 Hyponatremia E87.1 Transaminitis R74.01
[2021-07-13] VITALS (12 sets, daily range): BP systolic 125–163; BP diastolic 62–83; PULSE 63–99; RESP 17–23; TEMP 36.5–36.8; O2SAT 84–94
[2021-07-13] MEDS: enoxaparin 40 mg/0.4 mL Syringe SUBCUT ×2 (04:48→16:26)
[2021-07-13 06:46] LABS: Basophils % 0.1 %; Hematocrit 37.5 % (37.0-47.0); Lymphocytes # 1.2 10^3/uL (0.8-4.8); Lymphocytes % 12.8 %; Mean Corpuscular Hemoglobin 28.7 pg (28.0-34.0); Mean Corpuscular Volume 89.7 fl (81-99); Mean Platelet Volume 11.3 fL (7.4-10.4); Monocytes # 0.8 10^3/uL (0.2-0.9); Monocytes % 8.6 %; Neutrophils # 7.24 10^3/uL (1.8-7.7); Neutrophils % 77.6 %; Nucleated Red Blood Cells % 0 %; Platelet Count 246 10^3/cmm (130-400); Red Blood Count 4.18 10^6/uL (4.1-5.3); Red Cell Distribution Width 15.1 % (12.1-15.1); White Blood Count 9.3 10^3/uL (4.0-10.0)
[2021-07-13 06:47] LABS: Alanine Aminotransferase 35 U/L (0-33); Albumin Level 3.2 g/dL (3.5-5.2); Alkaline Phosphatase 91 IU/L (35-105); Anion Gap 16.2 (5-19); Aspartate Amino Transferase 40 U/L (0-32); Blood Urea Nitrogen 17 mg/dL (8-23); C Reactive Protein 42.6 mg/L (0.0-4.9); Calcium 8.6 mg/dL (8.5-10.5); Carbon Dioxide 31 mmol/L (22-29); Chloride 92 mmol/L (98-107); Globulin 3.7 g/dL (1.3-4.6); Glomerular Filtration Rate 123.1 mL/min (90-130); Glucose 190 mg/dL (65-115); Osmolality Calculated 287 mOsm/kg (285-295); Potassium 4.2 mmol/L (3.5-5.1); Sodium 135 mmol/L (136-145); Total Bilirubin 0.3 mg/dL (0.15-1.2); Total Protein 6.9 g/dL (6.6-8.7)
[2021-07-13 06:53] LABS: Fibrinogen 478 mg/dL (174-498)
[2021-07-13 06:58] LABS: D Dimer 0.87 ug/mIFEU (0-0.59)
[2021-07-13 08:19] LABS: Ferritin 493 ng/mL (15-150)
[2021-07-13] MEDS: aspirin 81 mg EC Tablet PO (08:28)
[2021-07-13] MEDS: dilTIAZem ER (24HR) 180 mg Capsule 360 MG PO (08:28)
[2021-07-13] MEDS: ascorbic acid 500 mg Tablet 1000 MG PO ×2 (08:28→17:50)
[2021-07-13] MEDS: zinc gluconate 50 mg Tablet PO (08:28)
[2021-07-13] MEDS: ipratropium-albuterol 3 mL Neb INHALATION ×3 (09:14→20:46)
[2021-07-13] MEDS: budesonide 0.5 mg/2 mL Neb INHALATION ×2 (09:14→20:46)
[2021-07-13 09:35] LABS: Slide Review Slide Review Perform
--- NOTE | 2021-07-13 12:42 | XR_ITS ---
WS: [id number] Exam: XR chest 1V portable [id number] Date/Time of Exam: 07/13/2021 12:42 PM Reason For Exam: sob Comparison 07/11/2021. Increasing widespread patchy infiltrates are noted throughout both lungs. The heart is enlarged. The lungs remain fully inflated. The mediastinum and osseous thorax are unremarkable. XR/XR chest 1V portable [id number] IMPRESSION: 1. Worsening bilateral infiltrates throughout both lungs. There are some areas of bilateral consolidation. 2. Cardiac enlargement. The heart appears to be slightly larger than noted on t he last exam.
--- NOTE | 2021-07-13 12:44 | USCV_ITS ---
Katie Eddy Age: 66 Gender: F : 1955 Exam Date: 07/13/2021 13:22 Ordering Phys: Raymond Villaseñor MD Technologist: Marlen Gonzales Exam Location: [facility] [place] Indication: DVT HISTORY: DVT. PROCEDURES: Venous duplex imaging was performed in bilateral lower extremities. Venous duplex imaging was performed in only the left lower extremity. The following venous structures were evaluated: common femoral vein, profunda vein, proximal portion of the greater saphenous vein, superficial femoral vein, and the popliteal vein. Serial compression, augmentation maneuvers, and spectral Doppler flow evaluation were performed. FINDINGS: Examination was technically limited due to body habitus. No evidence of DVT seen in any vessel visualized at this time. CONCLUSIONS No evidence of right lower extremity DVT. No evidence of left lower extremity DVT. Cole Hirsch MD (Electronically Signed) Final Date: 13 July 2021 17:03 S
[2021-07-13] MEDS: CLONazepam 0.5 mg Tablet 0.25 MG PO (13:22)
[2021-07-13] MEDS: FUROsemide 10 mg/mL SDV 4mL 40 MG IVP (13:23)
[2021-07-13 14:28] LABS: ABG PCO2 47.6 mmHg (35-45); Arterial Blood Gas Hematocrit 39.2 % (37-47); Base Excess ABG 11.7 mmol/L (-2.0-2.0); Blood Gas Allen Test Pos; Blood Gas Sample Site Radial, left; Blood Gas Sample Type Arterial; Carboxyhemoglobin 0.6 %THgb (0.4-20.1); HCO3 ABG 36.6 mmol/L (22-26); HGB O2 Sat 86.2 % (95-100); Ionized Calcium Level - ABG 1.2 mmol/L (1.1-1.4); Methemoglobin 0.8 % (0.4-1.5); Oxygen Saturation ABG 87.4; PO2 ABG 49.9 mmHg (80.0-100.0); Potassium Level - ABG 3.7 mmol/L (3.5-5.0); Total Hemoglobin 12.8 g/dL (12-16)
[2021-07-13 14:30] LABS: Alveolar-Arterial Oxygen Gradi 78.2 mmHg (5-10); Oxygen Device HAG
[2021-07-13] MEDS: dexamethasone 4 mg/mL INJ 6 MG IVP (16:26)
[2021-07-13] MEDS: remdesivir 100 MG in sodium chloride 0.9% (100 ml) 80 ML IV (17:50)
--- NOTE | 2021-07-13 19:46 | P.PN_ITS ---
Subjective Subjective: Interval history: Patient was seen this morning, remains on 12 L, continues to have a cough, fatigue, malaise, shortness of breath, later on the afternoon, her oxygen saturations increased to 45 L, she has been moved to the ICU for closer monitoring Vitals/I&O/Wt Last Vital Signs Temp 98.2 F 07/13/21 16:00 Pulse 75 07/13/21 16:00 Resp 23 H 07/13/21 16:00 BP 163/76 07/13/21 16:00 Pulse Ox 84 L 07/13/21 16:00 07/13/21 07/13/21 07/13/21 06:59 14:59 22:59 Intake Total 300 / 2360 Output Total 1480 / 1480 200 / 200 1500 / 1700 Balance -1180 / 880 -200 / -200 -1500 / -1700 Physical Exam Const: COMMON NORMALS: no acute distress and patient oriented x3 Neck/C-Spine: COMMON NORMALS: no JVD Resp: COMMON NORMALS: normal respiratory effort and No retractions AUSCULTATION: crackles Cardio: COMMON NORMALS: no JVD, regular rate, regular rhythm, S1 normal heart sound present and S2 normal heart sound present RATE: regular rate RHYTHM: regular rhythm HEART SOUNDS: S1 normal heart sound present and S2 normal heart sound present GI: COMMON NORMALS: Normal to inspection, nondistended, normoactive bowel sounds present, Soft to palpation and non-tender PALPATION: Yes Soft to palpation Extremity: COMMON NORMALS: no pedal edema Neuro: COMMON NORMALS: patient oriented x3 Psych: COMMON NORMALS: mental status grossly normal Urinary Catheter Management^: Carey: Cath Placed During This Visit: yes Reason for Continuing Indwelling Catheter: Accurate Measurement of Urinary Output in Critically Ill Patients Urinary Catheter Date of Insertion: 07/13/21 Urinary Catheter Time of Insertion: 16:00 Data : 07/13/21 05:55 07/13/21 05:55 Micro: Microbiology 07/11/21 20:20 Blood Culture - Preliminary Blood NEGATIVE TO DATE 07/11/21 20:10 Blood Culture - Preliminary Blood NEGATIVE TO DATE A&P Assessment and plan (1) Acute respiratory failure with hypoxia: Acute hypoxic respiratory failure secondary to Covid pneumonia: With acute respiratory distress syndrome secondary to COVID-19 Will moved to ICU for closer monitoring Cardiac echo ordered Venous ultrasound negative for DVT Patient declined CT angiogram Dexamethasone 6 mg IV daily Remdesivir for 5 days Barcitinib Continue Rocephin, azithromycin DuoNebs Advair inhaler Ascorbic acid 1000 mg p.o. twice daily Zinc 50 mg p.o. daily Lovenox 40 mg subcu every 12 hours Daily dose Lasix Pulmonary toilet Supplemental oxygen as needed Patient has high risk of intubation mechanical ventilation x-ray 4 4 8 hours Status: Acute (2) Pneumonia due to COVID-19 virus: Status: Acute (3) COPD (chronic obstructive pulmonary disease): Status: Acute Qualifiers: COPD type: emphysema Emphysema type: panlobular Qualified Code(s): J43.1 - Panlobular emphysema (4) Essential hypertension: Status: Acute (5) Hyponatremia: Hypovolemic hyponatremia: Will encourage p.o. intake Monitor BMP Status: Acute (6) Transaminitis: Status: Acute (7) Acute respiratory distress syndrome (ARDS) due to 2019-nCoV: Status: Acute Additional A&P Information CODE STATUS: Full code DVT prophylaxis: Lovenox 40 subcu every 12 hourly Attestations Medical Necessity Statement*: Patient requires hospitalization for COVID-19 pneumonia, acute respiratory distress syndrome Coding Level of Care Code Acute Fire Truck Driver for [facility] Diagnoses Acute respiratory failure with hypoxia J96.01 Pneumonia due to COVID-19 virus U07.1; J12.82 COPD (chronic obstructive pulmonary disease) J43.1 COPD type: emphysema Emphysema type: panlobular Essential hypertension I10 Hyponatremia E87.1 Transaminitis R74.01 Acute respiratory distress syndrome (ARDS) due to 2019-nCoV U07.1; J80
[2021-07-13] MEDS: azithromycin 500 MG in sodium chloride 0.9% 250 ML 250 MG IV (20:33)
[2021-07-13] MEDS: cefTRIAXone 1,000 MG in sodium chloride 0.9% (plus) 50 ML 100 MG IV (20:34)
[2021-07-14] VITALS (102 sets, daily range): BP systolic 149–182; BP diastolic 60–92; PULSE 53–87; RESP 15–29; TEMP 36.6–37; O2SAT 82–92
[2021-07-14] MEDS: ipratropium-albuterol 3 mL Neb INHALATION ×4 (02:41→20:42)
--- NOTE | 2021-07-14 03:00 | PC.NURSE ---
Pt assessed at change of shift. Pt was just transferred to ICU from the floor due to increased oxygen demands. Pt appears to have low oxygen reserve and gets short of breath with minimal activity, evident by dyspnea and oxygen saturation dropping to the upper 70's.
[2021-07-14 04:28] LABS: Basophils % 0.2 %; Hematocrit 38.3 % (37.0-47.0); Hemoglobin 11.9 g/dL (11.5-15.3); Lymphocytes # 1.1 10^3/uL (0.8-4.8); Lymphocytes % 16.4 %; Mean Corpuscular HGB Conc 31.1 g/dL (30.0-36.0); Mean Corpuscular Hemoglobin 27.9 pg (28.0-34.0); Mean Corpuscular Volume 89.9 fl (81-99); Mean Platelet Volume 10.7 fL (7.4-10.4); Monocytes # 0.7 10^3/uL (0.2-0.9); Neutrophils # 4.61 10^3/uL (1.8-7.7); Neutrophils % 71.2 %; Nucleated Red Blood Cells % 0 %; Platelet Count 267 10^3/cmm (130-400); Red Blood Count 4.26 10^6/uL (4.1-5.3); Red Cell Distribution Width 15.2 % (12.1-15.1); White Blood Count 6.5 10^3/uL (4.0-10.0)
[2021-07-14 04:59] LABS: Lactate (Lactic Acid level) 1.2 mmol/L (0.5-2.2)
[2021-07-14 05:01] LABS: D Dimer 0.87 ug/mIFEU (0-0.59)
[2021-07-14 05:03] LABS: Alanine Aminotransferase 31 U/L (0-33); Albumin Level 3.4 g/dL (3.5-5.2); Alkaline Phosphatase 96 IU/L (35-105); Anion Gap 18.3 (5-19); Aspartate Amino Transferase 32 U/L (0-32); Blood Urea Nitrogen 17 mg/dL (8-23); C Reactive Protein 24.4 mg/L (0.0-4.9); Calcium 8.4 mg/dL (8.5-10.5); Carbon Dioxide 30 mmol/L (22-29); Chloride 93 mmol/L (98-107); Globulin 3.5 g/dL (1.3-4.6); Glomerular Filtration Rate 159.2 mL/min (90-130); Glucose 207 mg/dL (65-115); Osmolality Calculated 292 mOsm/kg (285-295); Phosphorus 3.5 mg/dL (2.5-4.5); Potassium 4.3 mmol/L (3.5-5.1); Sodium 137 mmol/L (136-145); Total Bilirubin 0.4 mg/dL (0.15-1.2); Total Protein 6.9 g/dL (6.6-8.7)
[2021-07-14 05:12] LABS: NT Pro B Type Natriuretic Pept 731 pg/mL (0-125); Procalcitonin 0.07 ng/mL (0-0.5)
[2021-07-14 05:17] LABS: ABG PCO2 46.5 mmHg (35-45); ABG PH Result 7.52 (7.35-7.45); Arterial Blood Gas Hematocrit 39.5 % (37-47); Base Excess ABG 13.2 mmol/L (-2.0-2.0); Blood Gas Allen Test Pos; Blood Gas Operator Identificat JB; Blood Gas Sample Site Radial, right; Blood Gas Sample Type Arterial; HCO3 ABG 37.8 mmol/L (22-26); Oxygen Device HAG; PO2 ABG 55.6 mmHg (80.0-100.0)
[2021-07-14] MEDS: CLONazepam 0.5 mg Tablet 0.25 MG PO (06:12)
[2021-07-14] MEDS: enoxaparin 40 mg/0.4 mL Syringe SUBCUT ×2 (06:13→16:12)
--- NOTE | 2021-07-14 06:58 | PC.NURSE ---
Pt remained extremely anxious throughout the derrick builder, being very fidgety, verbally distressed, and pressing her call light repeatedly. Anxiety increased to the point that the patient was becoming impulsive and attempting to get out of bed against this nurse's clear instructions to not get up without assistance. PRN klonopin administered with little to no effect. SOA continued and desaturation with minimal activity, including getting to the chair and back several times, despite being advised of potential implications due to pt's low oxygen reserve, and high oxygen demands including 45 liters and 100% oxygen on heated high flow device. Pt's BP remained elevated throughout this shift. notified and PRN hydralizine ordered.
[2021-07-14 06:59] LABS: Slide Review Slide Review Perform
--- NOTE | 2021-07-14 07:00 | XR_ITS ---
WS: [id number] Exam: XR chest 1V portable [id number] Date/Time of Exam: 07/14/2021 5:27 AM Reason For Exam: sob Comparison 07/13/2021. Widespread pulmonary infiltrates throughout both lungs. Infiltrates have increased throughout the rig ht lung and also the left lower lung zone since prior study. The heart is not enlarged for technique. The mediastinum is not widened. Right basal pleural effusion is noted. No pneumothorax. XR/XR chest 1V portable [id number] IMPRESSION: 1. Increasing bilateral pulmonary infiltrates since previous study. 2. New right basal pleural effusion.
[2021-07-14 07:01] LABS: Creatine Phosphokinase 48 U/L (26-192); Ferritin 417 ng/mL (15-150)
[2021-07-14] MEDS: zinc gluconate 50 mg Tablet PO (07:30)
[2021-07-14] MEDS: dilTIAZem ER (24HR) 180 mg Capsule 360 MG PO (07:30)
[2021-07-14] MEDS: ascorbic acid 500 mg Tablet 1000 MG PO ×2 (07:30→17:53)
[2021-07-14] MEDS: acetaminophen 325 mg Tablet 650 MG PO (07:31)
[2021-07-14] MEDS: aspirin 81 mg EC Tablet PO (07:31)
[2021-07-14] MEDS: ALPRAZolam 0.5 mg Tablet PO ×2 (08:39→16:19)
[2021-07-14] MEDS: budesonide 0.5 mg/2 mL Neb INHALATION ×2 (08:52→20:42)
--- NOTE | 2021-07-14 09:11 | PC.CHAP ---
Pastoral Care Encounter/Spiritual Assessment Type of Contact [] Declined finish repair worker visit [] Patient/Family/Request visit [] Outpatient visit [] Follow-up visit [] Physician referral [] Code/Alert [x] Routine visit [] Staff referral [] Actively dying [x] Patient sleeping [] Family support [] [] Out of room [] Palliative care [] [] Receiving care in room [] Pre-surgical visit [] Trauma [] Long length of stay [x] ICU visit [x] Other: vent Relational/Emotional Strength [] Patient feels connected with others/family/visitors/staff [] Distress [] Loneliness/isolation [] Abandonment Spirituality of Patient [] Person of [place] [] Attends Rastafarian of their [place] [] Believes in Prayer [] Reads Bible or Episcopalian materials [] There are Spiritual issues to be addressed Clam Bed Worker Interventions [x] Prayer [] Active listening [] Non-anxious presence [] Spiritual/emotional support [] Crisis/trauma care [] Spiritual counseling [] Bereavement support [] Provided bereavement packet [] Provided Bible/devotional materials [] Provided toy/stuffed animal, coloring book to patient or family member [] Provided Communion [] Anointing/[place] [] Salvation [x] Completed spiritual assessment [] Other: Impact on Illness or Injury [] Angry [] Fearful [] Anxious [] Often cries [] Exhaustion [] Unable to work [] Unable to attend jehovah's witness [] Unable to walk/stand [] Unable to read [] Unable to drive [] Unable to eat/drink [] Unable to sleep [] Unable to be with family [] Patient intubated [] Other: Summary Time spent with patient
[2021-07-14] MEDS: tocilizumab 800 MG in sodium chloride 0.9% (100 ml) 100 ML 100 MG IV (10:46)
--- NOTE | 2021-07-14 14:46 | P.PN_ITS ---
Subjective Subjective: Interval history: Patient was seen this morning she tells me that she did well overnight, she sat up in the chair all morning, she is on 60 L 100%, oxygen saturations are in the high 80s, no evidence of respiratory distress, I discussed my concerns of acute respiratory failure, intubation she tells me that she would like to lay elevated as much as you can, and she is feel ing well, right now she sat up in the chair most of the morning Vitals/I&O/Wt Last Vital Signs Temp 97.9 F 07/14/21 07:43 Pulse 56 L 07/14/21 14:00 Resp 20 H 07/14/21 14:00 BP 153/73 07/14/21 13:10 Pulse Ox 89 L 07/14/21 14:00 07/13/21 07/14/21 07/14/21 22:59 06:59 14:59 Intake Total 380 / 380 1200 / 1580 140 / 140 Output Total 1500 / 1700 1950 / 3650 Balance -1120 / -1320 -750 / -2070 140 / 140 Physical Exam Const: COMMON NORMALS: no acute distress and patient oriented x3 HENMT: COMMON NORMALS: normocephalic HEAD & SCALP: normocephalic Resp: COMMON NORMALS: normal respiratory effort, No retractions, No use of accessory muscles and clear to auscultation bilaterally AUSCULTATION: clear to auscultation bilaterally Cardio: COMMON NORMALS: regular rate, regular rhythm, S1 normal heart sound present and S2 normal heart sound present RATE: regular rate RHYTHM: regular rhythm HEART SOUNDS: S1 normal heart sound present and S2 normal heart sound present GI: COMMON NORMALS: Normal to inspection, nondistended, normoactive bowel sounds present, Soft to palpation and non-tender PALPATION: Yes Soft to palpation Extremity: COMMON NORMALS: no pedal edema Neuro: COMMON NORMALS: patient oriented x3 Psych: COMMON NORMALS: mental status grossly normal Urinary Catheter Management^: Carey: Cath Placed During This Visit: yes Reason for Continuing Indwelling Catheter: Accurate Measurement of Urinary Ou tput in Critically Ill Patients Urinary Catheter Date of Insertion: 07/13/21 Urinary Catheter Time of Insertion: 16:00 Data : 07/14/21 03:59 07/14/21 03:59 A&P Assessment and plan (1) Acute respiratory failure with hypoxia: Acute hypoxic respiratory failure secondary to Covid pneumonia: With acute respiratory distress syndrome secondary to COVID-19 Currently in the ICU Cardiac echo ordered Venous ultrasound negative for DVT Patient declined CT angiogram Dexamethasone 6 mg IV daily 11/04 Remdesivir for 2/5 days Barcitinib 10/11 discontinued, Actemra low-dose Continue Rocephin, azithromycin DuoNebs Advair inhaler Ascorbic acid 1000 mg p.o. twice daily Zinc 50 mg p.o. daily Lovenox 40 mg subcu every 12 hours Daily dose Lasix Pulmonary toilet Supplemental oxygen as needed Patient has high risk of intubation and mechanical ventilation in the next 24 ho urs Status: Acute (2) Pneumonia due to COVID-19 virus: Status: Acute (3) COPD (chronic obstructive pulmonary disease): Status: Acute Qualifiers: COPD type: emphysema Emphysema type: panlobular Qualified Code(s): J43.1 - Panlobular emphysema (4) Essential hypertension: Status: Acute (5) Hyponatremia: Hypovolemic hyponatremia: Will encourage p.o. intake Monitor BMP Status: Acute (6) Transaminitis: Status: Acute (7) Acute respiratory distress syndrome (ARDS) due to 2019-nCoV: Status: Acute Additional A&P Information CODE STATUS: Full code DVT prophylaxis: Lovenox 40 subcu every 12 hourly Attestations Medical Necessity Statement*: Patient requires hospitalization for acute respiratory failure secondary to COVID-19 pneumonia Coding Level of Care Code Acute Hide Selector for [facility] Diagnoses Acute respiratory failure with hypoxia J96.01 Pneumonia due to COVID-19 virus U07.1; J12.82 COPD (chronic obstructive pulmonary disease) J43.1 COPD type: emphysema Emphysema type: panlobular Essential hypertension I10 Hyponatremia E87.1 Transaminitis R74.01 Acute respiratory distress syndrome (ARDS) due to 2019-nCoV U07.1; J80
[2021-07-14] MEDS: dexamethasone 4 mg/mL INJ 6 MG IVP (16:11)
[2021-07-14] MEDS: FUROsemide 10 mg/mL SDV 4mL 40 MG IVP (16:12)
--- NOTE | 2021-07-14 16:37 | PC.SOCIAL ---
IMM update IMM not updated as patient isn't accepted to DC in the next 24-48 hours.
[2021-07-14] MEDS: remdesivir 100 MG in sodium chloride 0.9% (100 ml) 80 ML IV (17:20)
[2021-07-14] MEDS: cefTRIAXone 1,000 MG in sodium chloride 0.9% (plus) 50 ML 100 MG IV (19:27)
[2021-07-14] MEDS: azithromycin 500 MG in sodium chloride 0.9% 250 ML 250 MG IV (19:27)
[2021-07-15] VITALS (157 sets, daily range): BP systolic 135–181; BP diastolic 50–108; PULSE 53–87; RESP 17–34; TEMP 36.5–37; O2SAT 81–94
[2021-07-15] MEDS: ipratropium-albuterol 3 mL Neb INHALATION ×4 (03:42→20:43)
[2021-07-15 04:53] LABS: ABG PCO2 50.3 mmHg (35-45); ABG PH Result 7.48 (7.35-7.45); Arterial Blood Gas Hematocrit 38.9 % (37-47); Base Excess ABG 11.8 mmol/L (-2.0-2.0); Blood Gas Allen Test Pos; Blood Gas Sample Type Arterial; HCO3 ABG 37.1 mmol/L (22-26); PO2 ABG 50.7 mmHg (80.0-100.0)
[2021-07-15 04:54] LABS: Blood Gas Sample Site Radial, right; Oxygen Device HAG
[2021-07-15] MEDS: enoxaparin 40 mg/0.4 mL Syringe SUBCUT ×2 (05:14→17:22)
[2021-07-15 05:29] LABS: Basophils % 0.3 %; Hematocrit 38.8 % (37.0-47.0); Hemoglobin 12.2 g/dL (11.5-15.3); Lymphocytes # 0.9 10^3/uL (0.8-4.8); Mean Corpuscular HGB Conc 31.4 g/dL (30.0-36.0); Mean Corpuscular Hemoglobin 28.4 pg (28.0-34.0); Mean Corpuscular Volume 90.2 fl (81-99); Mean Platelet Volume 10.9 fL (7.4-10.4); Monocytes # 0.7 10^3/uL (0.2-0.9); Monocytes % 9.9 %; Neutrophils # 4.86 10^3/uL (1.8-7.7); Neutrophils % 73.7 %; Nucleated Red Blood Cells % 0 %; Platelet Count 282 10^3/cmm (130-400); White Blood Count 6.6 10^3/uL (4.0-10.0)
[2021-07-15 05:49] LABS: D Dimer 1.03 ug/mIFEU (0-0.59)
[2021-07-15 05:54] LABS: Lactate (Lactic Acid level) 1.7 mmol/L (0.5-2.2)
[2021-07-15 06:02] LABS: C Reactive Protein 14.9 mg/L (0.0-4.9); Magnesium 1.9 mg/dL (1.7-2.3); Phosphorus 3.7 mg/dL (2.5-4.5)
[2021-07-15 06:14] LABS: NT Pro B Type Natriuretic Pept 726 pg/mL (0-125); Procalcitonin 0.08 ng/mL (0-0.5)
[2021-07-15 06:27] LABS: Alanine Aminotransferase 30 U/L (0-33); Albumin Level 3.4 g/dL (3.5-5.2); Alkaline Phosphatase 101 IU/L (35-105); Aspartate Amino Transferase 25 U/L (0-32); Blood Urea Nitrogen 22 mg/dL (8-23); Calcium 8.5 mg/dL (8.5-10.5); Carbon Dioxide 31 mmol/L (22-29); Chloride 94 mmol/L (98-107); Creatine Phosphokinase 31 U/L (26-192); Ferritin 346 ng/mL (15-150); Globulin 3.2 g/dL (1.3-4.6); Glomerular Filtration Rate 123.1 mL/min (90-130); Glucose 231 mg/dL (65-115); Osmolality Calculated 295 mOsm/kg (285-295); Sodium 137 mmol/L (136-145); Total Bilirubin 0.4 mg/dL (0.15-1.2); Total Protein 6.6 g/dL (6.6-8.7)
[2021-07-15 06:40] LABS: Slide Review Slide Review Perform
--- NOTE | 2021-07-15 06:43 | PC.NURSE ---
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 She states feeling better and stated she was able to get her oxygen in the 90's and able to do the blower thing (insentive spirometer) all the way to the top.
[2021-07-15] MEDS: zinc gluconate 50 mg Tablet PO (07:40)
[2021-07-15] MEDS: ALPRAZolam 0.5 mg Tablet PO ×2 (07:40→17:22)
[2021-07-15] MEDS: aspirin 81 mg EC Tablet PO (07:40)
[2021-07-15] MEDS: dilTIAZem ER (24HR) 180 mg Capsule 360 MG PO (07:40)
[2021-07-15] MEDS: ascorbic acid 500 mg Tablet 1000 MG PO ×2 (07:41→17:22)
[2021-07-15] MEDS: budesonide 0.5 mg/2 mL Neb INHALATION ×2 (08:03→20:43)
[2021-07-15] MEDS: FUROsemide 10 mg/mL SDV 4mL 40 MG IVP (08:25)
[2021-07-15] MEDS: lanolin oint 7 gm 1 APPLIC TOPICAL (09:40)
--- NOTE | 2021-07-15 12:24 | PM.PN ---
Subjective Subjective: Interval history: This morning patient was seen, she sitting up in a chair, enjoying breakfast, she tells me she is feeling a lot better, remains on 100% 60 L, oxygen saturations are in the low 90s, Vitals/I&O/Wt Last Vital Signs Temp 97.7 F 07/15/21 07:55 Pulse 74 07/15/21 08:30 Resp 20 H 07/15/21 08:30 BP 172/78 07/15/21 08:00 Pulse Ox 92 07/15/21 08:30 07/14/21 07/15/21 07/15/21 22:59 06:59 14:59 Intake Total 1280 / 1420 1200 / 2620 300 / 300 Output Total 2750 / 2750 1550 / 4300 Balance -1470 / -1330 -350 / -1680 300 / 300 Physical Exam Const: COMMON NORMALS: no acute distress and patient oriented x3 Neck/C-Spine: COMMON NORMALS: no JVD Resp: COMMON NORMALS: normal respiratory effort, No retractions, No use of accessory muscles and clear to auscultation bilaterally AUSCULTATION: clear to auscultation bilaterally Cardio: COMMON NORMALS: no JVD, regular rate, regular rhythm, S1 normal heart sound present and S2 normal heart sound present RATE: regular rate RHYTHM: regular rhythm HEART SOUNDS: S1 normal heart sound present and S2 normal heart sound present GI: COMMON NORMALS: Normal to inspection, nondistended, normoactive bowel sounds present, Soft to palpation and non-tender PALPATION: Yes Soft to palpation Extremity: COMMON NORMALS: no pedal edema Neuro: COMMON NORMALS: patient oriented x3 Psych: COMMON NORMALS: mental status grossly normal Urinary Catheter Management^: Carey: Cath Placed During This Visit: yes Reason for Continuing Indwelling Catheter: Accurate Measurement of Urinary Output in Critically Ill Patients Urinary Catheter Date of Insertion: 07/13/21 Urinary Catheter Time of Insertion: 16:00 Data : 07/15/21 05:14 07/15/21 05:14 Micro: Microbiology 07/15/21 00:45 Bacterial Antigens - Final Urine,Clean Catch A&P Assessment and plan (1) Acute respiratory failure with hypoxia: Acute hypoxic respiratory failure secondary to Covid pneumonia: With acute respiratory distress syndrome secondary to COVID-19 Currently in the ICU Cardiac echo ordered Venous ultrasound negative for DVT Patient declined CT angiogram Dexamethasone 6 mg IV daily 11/04 Remdesivir for 3/5 days Barcitinib 10/11 discontinued, 1 dose Actemra 07/14/2021 Continue Rocephin, azithromycin DuoNebs Advair inhaler Ascorbic acid 1000 mg p.o. twice daily Zinc 50 mg p.o. daily Lovenox 40 mg subcu every 12 hours Daily dose Lasix Pulmonary toilet Supplemental oxygen as needed 1 dose of Lasix today Patient has high risk of intubation and mechanical ventilation in the next 24 hours Status: Acute (2) Pneumonia due to COVID-19 virus: Status: Acute (3) COPD (chronic obstructive pulmonary disease): Status: Acute Qualifiers: COPD type: emphysema Emphysema type: panlobular Qualified Code(s): J43.1 - Panlobular emphysema (4) Essential hypertension: Status: Acute (5) Hyponatremia: Hypovolemic hyponatremia: Will encourage p.o. intake Monitor BMP Status: Acute (6) Transaminitis: Status: Acute (7) Acute respiratory distress syndrome (ARDS) due to 2019-nCoV: Status: Acute Additional A&P Information CODE STATUS: Full code DVT prophylaxis: Lovenox 40 subcu every 12 hourly Attestations Medical Necessity Statement*: Patient requires hospitalization for acute respiratory failure secondary COVID-19 Coding Level of Care Code Acute Cloth Coverer for [facility] Diagnoses Acute respiratory failure with hypoxia J96.01 Pneumonia due to COVID-19 virus U07.1; J12.82 COPD (chronic obstructive pulmonary disease) J43.1 COPD type: emphysema Emphysema type: panlobular Essential hypertension I10 Hyponatremia E87.1 Transaminitis R74.01 Acute respiratory distress syndrome (ARDS) due to 2019-nCoV U07.1; J80
[2021-07-15 13:41] LABS: Erythrocyte Sedimentation Rate 9 mm/hr (0-15)
[2021-07-15 14:01] LABS: Estmated Average Glucose 163; Hemoglobin A1C 7.3 % (4.0-6.0)
[2021-07-15] MEDS: dexamethasone 4 mg/mL INJ 6 MG IVP (15:58)
[2021-07-15] MEDS: hyDRALAzine 10 mg Tablet PO ×2 (15:59→20:40)
[2021-07-15 17:43] LABS: Glucose Point of Care 241 mg/dL (70-110)
[2021-07-15] MEDS: cefTRIAXone 1,000 MG in sodium chloride 0.9% (plus) 50 ML 100 MG IV (20:39)
[2021-07-15] MEDS: remdesivir 100 MG in sodium chloride 0.9% (100 ml) 80 ML IV (20:39)
[2021-07-15] MEDS: azithromycin 500 MG in sodium chloride 0.9% 250 ML 250 MG IV (20:40)
[2021-07-15 22:10] LABS: Glucose Point of Care 240 mg/dL (70-110)
[2021-07-16] VITALS (66 sets, daily range): BP systolic 121–186; BP diastolic 57–98; PULSE 54–89; RESP 16–37; TEMP 36.4–36.7; O2SAT 83–95
[2021-07-16] MEDS: ipratropium-albuterol 3 mL Neb INHALATION ×4 (02:53→20:33)
[2021-07-16] MEDS: saline nasal spray 44mL Btl 1 SPRAY NASAL ×3 (03:40→13:00)
[2021-07-16] MEDS: enoxaparin 40 mg/0.4 mL Syringe SUBCUT ×2 (04:00→17:06)
[2021-07-16 04:05] LABS: ABG PCO2 47.3 mmHg (35-45); ABG PH Result 7.46 (7.35-7.45); Base Excess ABG 8.8 mmol/L (-2.0-2.0); Blood Gas Allen Test Pos; Blood Gas Operator Identificat glc; Blood Gas Sample Site Radial, right; Blood Gas Sample Type Arterial; HCO3 ABG 33.9 mmol/L (22-26); Oxygen Device HAG; PO2 ABG 57.2 mmHg (80.0-100.0)
[2021-07-16 05:05] LABS: Basophils % 0.2 %; Hematocrit 39.3 % (37.0-47.0); Hemoglobin 12.4 g/dL (11.5-15.3); Lymphocytes # 0.8 10^3/uL (0.8-4.8); Lymphocytes % 10.3 %; Mean Corpuscular HGB Conc 31.6 g/dL (30.0-36.0); Mean Corpuscular Hemoglobin 28.1 pg (28.0-34.0); Mean Corpuscular Volume 88.9 fl (81-99); Monocytes # 0.6 10^3/uL (0.2-0.9); Monocytes % 6.8 %; Neutrophils # 6.31 10^3/uL (1.8-7.7); Neutrophils % 78.7 %; Nucleated Red Blood Cells % 0 %; Platelet Count 316 10^3/cmm (130-400); Red Blood Count 4.42 10^6/uL (4.1-5.3); Red Cell Distribution Width 14.9 % (12.1-15.1)
[2021-07-16 05:15] LABS: D Dimer 1.05 ug/mIFEU (0-0.59)
[2021-07-16 05:23] LABS: Lactate (Lactic Acid level) 2.2 mmol/L (0.5-2.2)
[2021-07-16 05:25] LABS: Alanine Aminotransferase 34 U/L (0-33); Albumin Level 3.5 g/dL (3.5-5.2); Alkaline Phosphatase 102 IU/L (35-105); Anion Gap 14.4 (5-19); Aspartate Amino Transferase 26 U/L (0-32); Blood Urea Nitrogen 21 mg/dL (8-23); C Reactive Protein 9.8 mg/L (0.0-4.9); Calcium 8.9 mg/dL (8.5-10.5); Carbon Dioxide 32 mmol/L (22-29); Chloride 94 mmol/L (98-107); Globulin 3.2 g/dL (1.3-4.6); Glomerular Filtration Rate 123.1 mL/min (90-130); Glucose 274 mg/dL (65-115); Magnesium 1.9 mg/dL (1.7-2.3); Osmolality Calculated 295 mOsm/kg (285-295); Phosphorus 3.7 mg/dL (2.5-4.5); Potassium 4.4 mmol/L (3.5-5.1); Sodium 136 mmol/L (136-145); Total Bilirubin 0.4 mg/dL (0.15-1.2); Total Protein 6.7 g/dL (6.6-8.7)
[2021-07-16 05:39] LABS: NT Pro B Type Natriuretic Pept 584 pg/mL (0-125); Procalcitonin 0.07 ng/mL (0-0.5)
[2021-07-16 05:49] LABS: Creatine Phosphokinase 31 U/L (26-192); Ferritin 355 ng/mL (15-150)
--- NOTE | 2021-07-16 07:02 | PC.NURSE ---
Shift Note Frequent safety and comfort rounds continue. Pt up in the chair throughout the night. Orders and nursing care completed as indicated. Patient monitored for response to intervention and treatment. Education provided includes pain management. Patient verbalized understanding.
[2021-07-16] MEDS: hyDRALAzine 10 mg Tablet PO ×3 (07:12→21:29)
[2021-07-16] MEDS: dilTIAZem ER (24HR) 180 mg Capsule 360 MG PO (07:12)
[2021-07-16 07:27] LABS: Glucose Point of Care 216 mg/dL (70-110)
--- NOTE | 2021-07-16 07:27 | PC.NURSE ---
Patient blood pressure was 186/97 at 0700. Gave Diltiazem and Hydralazine at 0712 to lower blood pressure.
[2021-07-16] MEDS: FUROsemide 10 mg/mL SDV 4mL 40 MG IVP ×2 (07:57→17:07)
[2021-07-16] MEDS: insulin lispro 100 unit/1 mL SUBCUT ×4 (07:59→21:30)
[2021-07-16] MEDS: aspirin 81 mg EC Tablet PO (08:00)
[2021-07-16] MEDS: ascorbic acid 500 mg Tablet 1000 MG PO ×2 (08:00→17:06)
[2021-07-16] MEDS: zinc gluconate 50 mg Tablet PO (08:01)
[2021-07-16] MEDS: spironolactone 25 mg Tablet PO (08:01)
--- NOTE | 2021-07-16 08:26 | PC.NURSE ---
Nurse educated patient on intermittent pneumatic compression. Patient refused stating that she does not like anything on her legs or feet. Nurse offered the patient socks. Patient declined.
[2021-07-16] MEDS: budesonide 0.5 mg/2 mL Neb INHALATION ×2 (09:45→20:33)
[2021-07-16 11:35] LABS: Glucose Point of Care 225 mg/dL (70-110)
--- NOTE | 2021-07-16 12:25 | PC.CHAP ---
Pastoral Care Encounter/Spiritual Assessment Type of Contact [] Declined forestry and wildlife manager visit [] Patient/Family/Request visit [] Outpatient visit [xx] Follow-up visit [] Physician referral [] Code/Alert [] Routine visit [] Staff referral [] Actively dying [] Patient sleeping [] Family support [] [] Out of room [] Palliative care [] [] Receiving care in room [] Pre-surgical visit [] Trauma [] Long length of stay [xx] ICU visit [] Other: Relational/Emotional Strength [] Patient feels connected with others/family/visitors/staff [] Distress [] Loneliness/isolation [] Abandonment Spirituality of Patient [] Person of [place] [] Attends Religion of their [place] [] Believes in Prayer [] Reads Bible or Mosque materials [] There are Spiritual issues to be addressed Overnight Cashier Interventions [] Prayer [] Active listening [] Non-anxious presence [] Spiritual/emotional support [] Crisis/trauma care [] Spiritual counseling [] Bereavement support [] Provided bereavement packet [] Provided Bible/devotional materials [] Provided toy/stuffed animal, coloring book to patient or family member [] Provided Communion [] Anointing/[place] [] Salvation [] Completed spiritual assessment [] Other: Impact on Illness or Injury [] Angry [] Fearful [] Anxious [] Often cries [] Exhaustion [] Unable to work [] Unable to attend restorationist [] Unable to walk/stand [] Unable to read [] Unable to drive [] Unable to eat/drink [] Unable to sleep [] Unable to be with family [] Patient intubated [] Other: Summary patient on ventilator. Overnight Cashier prayed outside of room. Time spent with patient 1 minute
--- NOTE | 2021-07-16 12:35 | PM.PN ---
Subjective Subjective: Interval history: Patient was seen this morning, she sitting up into a chair, she tells me she is breathing better, no fevers overnight, no chills, no nausea, no vomiting Vitals/I&O/Wt Last Vital Signs Temp 98 F 07/16/21 09:00 Pulse 58 L 07/16/21 11:15 Resp 19 H 07/16/21 11:15 BP 139/78 07/16/21 11:15 Pulse Ox 92 07/16/21 11:15 07/15/21 07/16/21 07/16/21 22:59 06:59 14:59 Intake Total 780 / 1080 440 / 1520 776 / 776 Output Total 1800 / 1800 1540 / 3340 1725 / 1725 Balance -1020 / -720 -1100 / -1820 -949 / -949 Physical Exam Const: COMMON NORMALS: no acute distress and patient oriented x3 Resp: COMMON NORMALS: normal respiratory effort, No retractions, No use of accessory muscles and clear to auscultation bilaterally AUSCULTATION: clear to auscultation bilaterally Cardio: COMMON NORMALS: regular rate, regular rhythm, S1 normal heart sound present and S2 normal heart sound present RATE: regular rate RHYTHM: regular rhythm HEART SOUNDS: S1 normal heart sound present and S2 normal heart sound present GI: COMMON NORMALS: Normal to inspection, nondistended, normoactive bowel sounds present, Soft to palpation and non-tender PALPATION: Yes Soft to palpation Extremity: COMMON NORMALS: no pedal edema Neuro: COMMON NORMALS: patient oriented x3 Psych: COMMON NORMALS: mental status grossly normal Urinary Catheter Management^: Carey: Cath Placed During This Visit: yes Reason for Continuing Indwelling Catheter: Accurate Measurement of Urinary Output in Critically Ill Patients Urinary Catheter Date of Insertion: 07/13/21 Urinary Catheter Time of Insertion: 16:00 Data : 07/16/21 04:42 07/16/21 04:42 Micro: Microbiology 07/15/21 00:45 Bacterial Antigens - Final Urine,Clean Catch A&P Assessment and plan (1) Acute respiratory failure with hypoxia: Acute hypoxic respiratory failure secondary to Covid pneumonia: With acute respiratory distress syndrome secondary to COVID-19 Currently in the ICU Cardiac echo ordered and pending Venous ultrasound negative for DVT Patient declined CT angiogram Dexamethasone 6 mg IV daily 02/04 Completed remdesivir Barcitinib 10/11 discontinued, 1 dose Actemra 07/14/2021 Continue Rocephin, azithromycin DuoNebs Advair inhaler Ascorbic acid 1000 mg p.o. twice daily Zinc 50 mg p.o. daily Lovenox 40 mg subcu every 12 hours Daily dose Lasix, -6 L Pulmonary toilet Supplemental oxygen as needed Status is stable, prognosis guarded Patient has high risk of intubation and mechanical ventilation Type 2 diabetes mellitus, insulin sliding scale, Lantus 5 units twice daily Status: Acute (2) Pneumonia due to COVID-19 virus: Status: Acute (3) COPD (chronic obstructive pulmonary disease): Status: Acute Qualifiers: COPD type: emphysema Emphysema type: panlobular Qualified Code(s): J43.1 - Panlobular emphysema (4) Essential hypertension: Status: Acute (5) Hyponatremia: Hypovolemic hyponatremia: Will encourage p.o. intake Monitor BMP Status: Acute (6) Transaminitis: Status: Acute (7) Acute respiratory distress syndrome (ARDS) due to 2019-nCoV: Status: Acute Additional A&P Information CODE STATUS: Full code DVT prophylaxis: Lovenox 40 subcu every 12 hourly Attestations Medical Necessity Statement*: Patient requires hospitalization for acute respiratory failure secondary to COVID-19 Coding Level of Care Code Acute Colorer Machine for [facility] Diagnoses Acute respiratory failure with hypoxia J96.01 Pneumonia due to COVID-19 virus U07.1; J12.82 COPD (chronic obstructive pulmonary disease) J43.1 COPD type: emphysema Emphysema type: panlobular Essential hypertension I10 Hyponatremia E87.1 Transaminitis R74.01 Acute respiratory distress syndrome (ARDS) due to 2019-nCoV U07.1; J80
--- NOTE | 2021-07-16 13:27 | PC.NURSE ---
Rounded with Dr. Villaseñor at 0800. Patient is able to stand independently when transferring from chair to commode. Patient in mechanically reclining chair. Patient states that she get anxiety when she is in the bed. Family called and got updated on the patient. Patient asked if her sister, who is in [facility], has been discharged. Nurse called twice to get updates, and informed patient with updates. Family brought patients phone and captain airline pilot.
[2021-07-16] MEDS: insulin glargine 100 units/1 mL 5 UNIT SUBCUT (13:57)
--- NOTE | 2021-07-16 14:04 | PC.NURSE ---
Nurse reinforced patient on proper use of incentive spirometry and flutter valve with patient demonstration. Patient does incentive spirometry and flutter valve lung exercises without reminders.
--- NOTE | 2021-07-16 15:41 | PC.SOCIAL ---
IMM update IMM not updated due to patient not being discharged in the next 24-48 hours.
[2021-07-16] MEDS: dexamethasone 4 mg/mL INJ 6 MG IVP (15:50)
[2021-07-16 17:01] LABS: Glucose Point of Care 217 mg/dL (70-110)
[2021-07-16] MEDS: acetaminophen 325 mg Tablet 650 MG PO (18:07)
--- NOTE | 2021-07-16 18:45 | PC.NURSE ---
Shift Note Frequent safety and comfort rounds continue. Orders and/or nursing care completed as indicated. Patient monitored for response to intervention and treatment(s). Education provided includes medications, oxygen use, new orders, and care plan. Patient verbalized understanding. Patient able to stand up for around 2 minutes. Patient's heart rate was sinus today. When asleep the patient's heart rate went around 57. Patient up to chair whole shift.
[2021-07-16] MEDS: cefTRIAXone 1,000 MG in sodium chloride 0.9% (plus) 50 ML 100 MG IV (20:57)
[2021-07-16] MEDS: azithromycin 500 MG in sodium chloride 0.9% 250 ML 250 MG IV (20:57)
[2021-07-16 21:41] LABS: Glucose Point of Care 302 mg/dL (70-110)
[2021-07-17] VITALS (42 sets, daily range): BP systolic 132–167; BP diastolic 65–96; PULSE 55–89; RESP 16–29; TEMP 36.1–37.3; O2SAT 86–95
[2021-07-17 02:12] LABS: Glucose Point of Care 200 mg/dL (70-110)
[2021-07-17] MEDS: insulin glargine 100 units/1 mL 5 UNIT SUBCUT ×2 (02:12→12:54)
[2021-07-17] MEDS: ipratropium-albuterol 3 mL Neb INHALATION ×4 (02:46→20:51)
[2021-07-17 04:49] LABS: Basophils % 0.2 %; Hematocrit 42.2 % (37.0-47.0); Hemoglobin 13.3 g/dL (11.5-15.3); Lymphocytes # 0.9 10^3/uL (0.8-4.8); Lymphocytes % 9.8 %; Mean Corpuscular HGB Conc 31.5 g/dL (30.0-36.0); Mean Corpuscular Hemoglobin 28.3 pg (28.0-34.0); Mean Corpuscular Volume 89.8 fl (81-99); Mean Platelet Volume 12.3 fL (7.4-10.4); Monocytes # 0.5 10^3/uL (0.2-0.9); Monocytes % 5.8 %; Neutrophils # 6.99 10^3/uL (1.8-7.7); Neutrophils % 79.6 %; Nucleated Red Blood Cells % 0 %; Platelet Count 266 10^3/cmm (130-400); Red Cell Distribution Width 15.2 % (12.1-15.1); White Blood Count 8.8 10^3/uL (4.0-10.0)
[2021-07-17 05:03] LABS: INR 1.05 (0.8-1.2)
[2021-07-17 05:08] LABS: ABG PCO2 51.5 mmHg (35-45); ABG PH Result 7.47 (7.35-7.45); Arterial Blood Gas Hematocrit 40.4 % (37-47); Base Excess ABG 11.7 mmol/L (-2.0-2.0); Blood Gas Allen Test Pos; Blood Gas Operator Identificat glc; Blood Gas Sample Site Radial, left; Blood Gas Sample Type Arterial; HCO3 ABG 37.3 mmol/L (22-26); Oxygen Device HAG; PO2 ABG 57.4 mmHg (80.0-100.0)
[2021-07-17] MEDS: enoxaparin 40 mg/0.4 mL Syringe SUBCUT ×2 (05:19→16:20)
--- NOTE | 2021-07-17 07:00 | XRR_ITS ---
PROCEDURE INFORMATION: Exam: XR Chest Exam date and time: 07/17/2021 7:00 AM Age: 66 years old Clinical indication: Shortness of breath; Patient HX: F/u for covid pneumonia; Additional info: SOB TECHNIQUE: Imaging protocol: XR of the chest. Views: 1 view. COMPARISON: CR XR chest 1V portable [id number] 07/14/2021 5:47 AM FINDINGS: Lungs: Mild improvement without resolution of bilateral pulmonary infiltrates. Pleural spaces: Unremarkable. No pleural effusion. No pneumothorax. Heart/Mediastinum: Unremarkable. No cardiomegaly. Bones/joints: Unremarkable. XR/XR chest 1V portable [id number] IMPRESSION: Mild improvement without resolution of bilateral pulmonary infiltrates. Radiation Dose CTDIVOL = (mGy): DLP = (mGy-cm)
[2021-07-17 07:14] LABS: NT Pro B Type Natriuretic Pept 347 pg/mL (0-125); Procalcitonin 0.07 ng/mL (0-0.5)
[2021-07-17 07:16] LABS: Glucose Point of Care 227 mg/dL (70-110)
--- NOTE | 2021-07-17 07:16 | PC.NURSE ---
There were no new changes with the patient. Her vitals were within normal parameters most of the night with the exception of a high blood pressure from time to time. The patient has been on a heated HiFLO 35/80, saturating in the low 90's. The patient's urine output was 1,425 mL for the shift. Blood sugar was checked twice. The first blood sugar was 311 and the second one was 200. She was in good spirits and remained in the chair the entire night. She refused to get into the bed. I witnessed the patient stand up on her own when ever she reported that her butt was sore. There was one IV that infiltrated in the left wrist, so I placed a 20 guage IV in the right forearm, which flushes and draw's nicely.
[2021-07-17 07:26] LABS: Alanine Aminotransferase 37 U/L (0-33); Albumin Level 3.3 g/dL (3.5-5.2); Alkaline Phosphatase 89 IU/L (35-105); Anion Gap 16.2 (5-19); Aspartate Amino Transferase 25 U/L (0-32); Blood Urea Nitrogen 26 mg/dL (8-23); C Reactive Protein 5.6 mg/L (0.0-4.9); Calcium 8.9 mg/dL (8.5-10.5); Carbon Dioxide 30 mmol/L (22-29); Chloride 91 mmol/L (98-107); Creatine Phosphokinase 23 U/L (26-192); Glomerular Filtration Rate 123.1 mL/min (90-130); Glucose 271 mg/dL (65-115); Osmolality Calculated 290 mOsm/kg (285-295); Phosphorus 4.7 mg/dL (2.5-4.5); Potassium 4.2 mmol/L (3.5-5.1); Sodium 133 mmol/L (136-145); Total Bilirubin 0.4 mg/dL (0.15-1.2); Total Protein 6.3 g/dL (6.6-8.7)
[2021-07-17] MEDS: insulin lispro 100 unit/1 mL SUBCUT ×4 (07:58→21:47)
[2021-07-17] MEDS: zinc gluconate 50 mg Tablet PO (08:00)
[2021-07-17] MEDS: hyDRALAzine 10 mg Tablet PO ×3 (08:00→21:47)
[2021-07-17] MEDS: ascorbic acid 500 mg Tablet 1000 MG PO ×2 (08:00→17:57)
[2021-07-17] MEDS: spironolactone 25 mg Tablet PO (08:00)
[2021-07-17] MEDS: dilTIAZem ER (24HR) 180 mg Capsule 360 MG PO (08:00)
[2021-07-17] MEDS: aspirin 81 mg EC Tablet PO (08:00)
[2021-07-17] MEDS: budesonide 0.5 mg/2 mL Neb INHALATION ×2 (08:27→20:51)
--- NOTE | 2021-07-17 08:59 | PC.NURSE ---
Rounded with Dr. Villaseñor. Order to administer one time Lasix 40 mg at 1200 instead of 0815. Walked with patient around the bed. Gave boost of oxygen and patient able to walk and stand for two minutes.
[2021-07-17 11:47] LABS: Glucose Point of Care 227 mg/dL (70-110)
[2021-07-17] MEDS: FUROsemide 10 mg/mL SDV 4mL 40 MG IVP (11:50)
[2021-07-17] MEDS: azithromycin 250 mg Tablet PO (15:09)
[2021-07-17] MEDS: dexamethasone 4 mg/mL INJ 6 MG IVP (15:09)
--- NOTE | 2021-07-17 17:20 | PC.NURSE ---
Transfer Note Patient transferred to [place] [id number] from ICU 12 via wheelchair. Handoff received and report called to Marlen. Patient oriented to environment and equipment. Covering service notified. Orders reviewed. Family notified and update given. Patient stayed up in chair. Patient able to walk independently in her room for around two minutes. Patient does incentive spirometry and flutter valve without reminders.
[2021-07-17 17:29] LABS: Glucose Point of Care 241 mg/dL (70-110)
--- NOTE | 2021-07-17 17:43 | P.PN_ITS ---
Subjective Subjective: Interval history: Patient was seen this morning, she is doing well, no significant hypoxia events overnight, her oxygen requirements are decreasing, she has a good appetite, Vitals/I&O/Wt Last Vital Signs Temp 98.0 F 07/17/21 17:33 Pulse 68 07/17/21 17:33 Resp 22 H 07/17/21 17:33 BP 147/66 07/17/21 17:33 Pulse Ox 88 L 07/17/21 17:33 07/17/21 07/17/21 07/17/21 06:59 14:59 22:59 Intake Total 1380 / 1380 Output Total 775 / 775 Balance 605 / 605 Physical Exam Const: COMMON NORMALS: no acute distress and patient oriented x3 Resp: COMMON NORMALS: normal respiratory effort, No retractions, No use of accessory muscles and clear to auscultation bilaterally AUSCULTATION: clear to auscultation bilaterally Cardio: COMMON NORMALS: regular rate, regular rhythm, S1 normal heart sound p resent and S2 normal heart sound present RATE: regular rate RHYTHM: regular rhythm HEART SOUNDS: S1 normal heart sound present and S2 normal heart sound present GI: COMMON NORMALS: Normal to inspection, nondistended, normoactive bowel sounds present, Soft to palpation and non-tender PALPATION: Yes Soft to palpation Extremity: COMMON NORMALS: no pedal edema Neuro: COMMON NORMALS: patient oriented x3 Psych: COMMON NORMALS: mental status grossly normal Urinary Catheter Management^: Carey: Cath Placed During This Visit: yes Reason for Continuing Indwelling Catheter: Accurate Measurement of Urinary Output in Critically Ill Patients Urinary Catheter Date of Insertion: 07/13/21 Urinary Catheter Time of Insertion: 16:00 Data : 07/17/21 04:03 07/17/21 06:30 Micro: Microbiology 07/17/21 13:28 Gram Stain - Final Sputum - Expectorated Sputum 07/11/21 20:20 Blood Culture - Final Blood NO GROWTH AFTER 5 DAYS 07/11/21 20:10 Blood Culture - Final Blood NO GROWTH AFTER 5 DAYS A&P Assessment and plan (1) Acute respiratory failure with hypoxia: Acute hypoxic respiratory failure secondary to Covid pneumonia: With acute respiratory distress syndrome secondary to COVID-19 We will move patient out of ICU Cardiac echo ordered and pending Venous ultrasound negative for DVT Patient declined CT angiogram Dexamethasone 6 mg IV daily 03/06 Completed remdesivir Barcitinib 10/11 discontinued, 1 dose Actemra 07/14/2021 Continue Rocephin, azithromycin DuoNebs Advair inhaler Ascorbic acid 1000 mg p.o. twice daily Zinc 50 mg p.o. daily Lovenox 40 mg subcu every 12 hours Daily dose Lasix, -6 L Pulmonary toilet Supplemental oxygen as needed Status is stable, prognosis guarded Type 2 diabetes mellitus, insulin sliding scale, Lantus 5 units twice daily Status: Acute (2) Pneumonia due to COVID-19 virus: Status: Acute (3) COPD (chronic obstructive pulmonary disease): Status: Acute Qualifiers: COPD type: emphysema Emphysema type: panlobular Qualified Code(s): J43.1 - Panlobular emphysema (4) Essential hypertension: Status: Acute (5) Hyponatremia: Hypovolemic hyponatremia: Will encourage p.o. intake Monitor BMP Status: Acute (6) Transaminitis: Status: Acute (7) Acute respiratory distress syndrome (ARDS) due to 2019-nCoV: Status: Acute Additional A&P Information CODE STATUS: Full code DVT prophylaxis: Lovenox 40 subcu every 12 hourly Attestations Medical Necessity Statement*: Patient requires hospitalization for acute respiratory failure secondary COVID-19 Coding Level of Care Code Acute Online Merchandising Specialist for [facility] Diagnoses Acute respiratory failure with hypoxia J96.01 Pneumonia due to COVID-19 virus U07.1; J12.82 COPD (chronic obstructive pulmonary disease) J43.1 COPD type: emphysema Emphysema type: panlobular Essential hypertension I10 Hyponatremia E87.1 Transaminitis R74.01 Acute respiratory distress syndrome (ARDS) due to 2019-nCoV U07.1; J80
--- NOTE | 2021-07-17 18:59 | PC.NURSE ---
Report to Kym CHAVIRA at this time.
[2021-07-17 21:17] LABS: Glucose Point of Care 377 mg/dL (70-110)
[2021-07-17] MEDS: cefTRIAXone 1,000 MG in sodium chloride 0.9% (plus) 50 ML 100 MG IV (21:47)
[2021-07-18] VITALS (12 sets, daily range): BP systolic 126–152; BP diastolic 59–86; PULSE 58–79; RESP 16–22; TEMP 36.5–37.1; O2SAT 90–95
[2021-07-18] MEDS: insulin glargine 100 units/1 mL 5 UNIT SUBCUT ×2 (00:19→12:50)
[2021-07-18] MEDS: enoxaparin 40 mg/0.4 mL Syringe SUBCUT ×2 (04:53→17:29)
[2021-07-18 07:04] LABS: Basophils % 0.3 %; Hematocrit 40.6 % (37.0-47.0); Hemoglobin 12.8 g/dL (11.5-15.3); Lymphocytes # 0.9 10^3/uL (0.8-4.8); Lymphocytes % 9.2 %; Mean Corpuscular HGB Conc 31.5 g/dL (30.0-36.0); Mean Corpuscular Hemoglobin 28.1 pg (28.0-34.0); Mean Corpuscular Volume 89.2 fl (81-99); Mean Platelet Volume 10.8 fL (7.4-10.4); Monocytes # 0.6 10^3/uL (0.2-0.9); Monocytes % 6.2 %; Neutrophils # 8.03 10^3/uL (1.8-7.7); Nucleated Red Blood Cells % 0 %; Platelet Count 336 10^3/cmm (130-400); Red Blood Count 4.55 10^6/uL (4.1-5.3); Red Cell Distribution Width 15.1 % (12.1-15.1)
[2021-07-18 07:08] LABS: Glucose Point of Care 186 mg/dL (70-110)
[2021-07-18 07:39] LABS: Alanine Aminotransferase 35 U/L (0-33); Albumin Level 3.5 g/dL (3.5-5.2); Alkaline Phosphatase 87 IU/L (35-105); Anion Gap 10.6 (5-19); Aspartate Amino Transferase 21 U/L (0-32); Blood Urea Nitrogen 23 mg/dL (8-23); C Reactive Protein 3.7 mg/L (0.0-4.9); Calcium 8.5 mg/dL (8.5-10.5); Carbon Dioxide 33 mmol/L (22-29); Chloride 94 mmol/L (98-107); Globulin 2.9 g/dL (1.3-4.6); Glomerular Filtration Rate 159.2 mL/min (90-130); Glucose 188 mg/dL (65-115); Magnesium 2.2 mg/dL (1.7-2.3); Osmolality Calculated 285 mOsm/kg (285-295); Potassium 4.6 mmol/L (3.5-5.1); Sodium 133 mmol/L (136-145); Total Bilirubin 0.4 mg/dL (0.15-1.2); Total Protein 6.4 g/dL (6.6-8.7)
[2021-07-18 07:46] LABS: NT Pro B Type Natriuretic Pept 228 pg/mL (0-125); Procalcitonin 0.07 ng/mL (0-0.5)
[2021-07-18 07:57] LABS: Creatine Phosphokinase 28 U/L (26-192)
[2021-07-18] MEDS: ipratropium-albuterol 3 mL Neb INHALATION ×3 (08:28→20:17)
[2021-07-18] MEDS: budesonide 0.5 mg/2 mL Neb INHALATION ×2 (08:29→20:17)
[2021-07-18] MEDS: insulin lispro 100 unit/1 mL SUBCUT ×4 (09:47→20:27)
[2021-07-18] MEDS: zinc gluconate 50 mg Tablet PO (09:48)
[2021-07-18] MEDS: spironolactone 25 mg Tablet PO (09:48)
[2021-07-18] MEDS: aspirin 81 mg EC Tablet PO (09:48)
[2021-07-18] MEDS: dilTIAZem ER (24HR) 180 mg Capsule 360 MG PO (09:48)
[2021-07-18] MEDS: ascorbic acid 500 mg Tablet 1000 MG PO ×2 (09:48→17:30)
[2021-07-18] MEDS: hyDRALAzine 10 mg Tablet PO ×3 (09:49→20:27)
[2021-07-18] MEDS: FUROsemide 10 mg/mL SDV 4mL 40 MG IVP (10:46)
[2021-07-18 11:13] LABS: Glucose Point of Care 256 mg/dL (70-110)
--- NOTE | 2021-07-18 15:13 | PC.SOCIAL ---
IMM update IMM updated with patient. Verbalized an understanding. Initialled, dated, timed, and placed in chart.
--- NOTE | 2021-07-18 15:30 | PM.PN ---
Subjective Subjective: Interval history: Patient was seen this morning, she is currently doing better, on 12 L, no fevers, chills, nausea, vomiting, is eager to go home Vitals/I&O/Wt Last Vital Signs Temp 98.8 F 07/18/21 12:00 Pulse 76 07/18/21 14:16 Resp 18 07/18/21 14:16 BP 126/62 07/18/21 12:00 Pulse Ox 92 07/18/21 14:16 07/18/21 07/18/21 07/18/21 06:59 14:59 22:59 Intake Total 240 / 1870 720 / 720 Output Total 1750 / 2975 Balance -1510 / -1105 720 / 720 Physical Exam Const: COMMON NORMALS: no acute distress and patient oriented x3 Resp: COMMON NORMALS: normal respiratory effort, No retractions, No use of accessory muscles and clear to auscultation bilaterally AUSCULTATION: clear to auscultation bilaterally Cardio: COMMON NORMALS: regular rate, regular rhythm, S1 normal heart sound present and S2 normal heart sound present RATE: regular rate RHYTHM: regular rhythm HEART SOUNDS: S1 normal heart sound present and S2 normal heart sound present GI: COMMON NORMALS: Normal to inspection, nondistended, normoactive bowel sounds present, Soft to palpation and non-tender PALPATION: Yes Soft to palpation Extremity: COMMON NORMALS: no pedal edema Neuro: COMMON NORMALS: patient oriented x3 Psych: COMMON NORMALS: mental status grossly normal Urinary Catheter Management^: Carey: Cath Placed During This Visit: yes Reason for Continuing Indwelling Catheter: Acute Urinary Retention or Obstruction Urinary Catheter Date of Insertion: 07/13/21 Urinary Catheter Time of Insertion: 16:00 Data : 07/18/21 06:43 07/18/21 06:43 Micro: Microbiology 07/17/21 13:28 Gram Stain - Final Sputum - Expectorated Sputum Sputum Culture - Preliminary A&P Assessment and plan (1) Acute respiratory failure with hypoxia: Acute hypoxic respiratory failure secondary to Covid pneumonia: With acute respiratory distress syndrome secondary to COVID-19 Currently on the general medical floors Currently on 8 L Venous ultrasound negative for DVT Patient declined CT angiogram Dexamethasone 6 mg IV daily 04/06 Completed remdesivir Barcitinib 10/11 discontinued, 1 dose Actemra 07/14/2021 Continue Rocephin, azithromycin DuoNebs Advair inhaler Ascorbic acid 1000 mg p.o. twice daily Zinc 50 mg p.o. daily Lovenox 40 mg subcu every 12 hours Daily dose Lasix, -6 L Pulmonary toilet Supplemental oxygen as needed Status is stable, prognosis guarded Type 2 diabetes mellitus, insulin sliding scale, Lantus 5 units twice daily Can discharge the next 24 hours Status: Acute (2) Pneumonia due to COVID-19 virus: Status: Acute (3) COPD (chronic obstructive pulmonary disease): Status: Acute Qualifiers: COPD type: emphysema Emphysema type: panlobular Qualified Code(s): J43.1 - Panlobular emphysema (4) Essential hypertension: Status: Acute (5) Hyponatremia: Hypovolemic hyponatremia: Will encourage p.o. intake Monitor BMP Status: Acute (6) Transaminitis: Status: Acute (7) Acute respiratory distress syndrome (ARDS) due to 2019-nCoV: Status: Acute Additional A&P Information CODE STATUS: Full code DVT prophylaxis: Lovenox 40 subcu every 12 hourly Attestations Medical Necessity Statement*: Patient requires hospitalization for COVID-19 pneumonia Coding Level of Care Code Acute Auditing Clerk for [facility] Diagnoses Acute respiratory failure with hypoxia J96.01 Pneumonia due to COVID-19 virus U07.1; J12.82 COPD (chronic obstructive pulmonary disease) J43.1 COPD type: emphysema Emphysema type: panlobular Essential hypertension I10 Hyponatremia E87.1 Transaminitis R74.01 Acute respiratory distress syndrome (ARDS) due to 2019-nCoV U07.1; J80
[2021-07-18] MEDS: dexamethasone 4 mg/mL INJ 6 MG IVP (15:39)
[2021-07-18] MEDS: azithromycin 250 mg Tablet PO (15:39)
[2021-07-18 17:24] LABS: Glucose Point of Care 211 mg/dL (70-110)
[2021-07-18 20:21] LABS: Glucose Point of Care 330 mg/dL (70-110)
[2021-07-18] MEDS: cefTRIAXone 1,000 MG in sodium chloride 0.9% (plus) 50 ML 100 MG IV (20:27)
[2021-07-19] VITALS (13 sets, daily range): BP systolic 114–157; BP diastolic 60–77; PULSE 60–73; RESP 17–26; TEMP 36.4–36.9; O2SAT 88–94
[2021-07-19] MEDS: insulin glargine 100 units/1 mL 5 UNIT SUBCUT ×2 (01:09→12:19)
[2021-07-19] MEDS: ipratropium-albuterol 3 mL Neb INHALATION ×4 (02:58→20:18)
[2021-07-19] MEDS: enoxaparin 40 mg/0.4 mL Syringe SUBCUT ×2 (05:29→17:58)
[2021-07-19 06:29] LABS: Glucose Point of Care 173 mg/dL (70-110)
[2021-07-19 06:31] LABS: Basophils # 0.1 10^3/uL (0.0-0.1); Basophils % 0.5 %; Hematocrit 40.7 % (37.0-47.0); Lymphocytes # 0.9 10^3/uL (0.8-4.8); Lymphocytes % 8.5 %; Mean Corpuscular HGB Conc 31.9 g/dL (30.0-36.0); Mean Corpuscular Hemoglobin 28.4 pg (28.0-34.0); Mean Corpuscular Volume 89.1 fl (81-99); Mean Platelet Volume 11.1 fL (7.4-10.4); Monocytes # 0.5 10^3/uL (0.2-0.9); Neutrophils # 8.62 10^3/uL (1.8-7.7); Nucleated Red Blood Cells % 0 %; Platelet Count 398 10^3/cmm (130-400); Red Blood Count 4.57 10^6/uL (4.1-5.3); Red Cell Distribution Width 15.2 % (12.1-15.1); White Blood Count 10.7 10^3/uL (4.0-10.0)
[2021-07-19 06:48] LABS: Procalcitonin 0.07 ng/mL (0-0.5)
[2021-07-19 07:01] LABS: Alanine Aminotransferase 48 U/L (0-33); Albumin Level 3.5 g/dL (3.5-5.2); Alkaline Phosphatase 93 IU/L (35-105); Anion Gap 17.7 (5-19); Aspartate Amino Transferase 27 U/L (0-32); Blood Urea Nitrogen 25 mg/dL (8-23); C Reactive Protein 2.8 mg/L (0.0-4.9); Calcium 8.5 mg/dL (8.5-10.5); Carbon Dioxide 27 mmol/L (22-29); Chloride 95 mmol/L (98-107); Globulin 2.9 g/dL (1.3-4.6); Glomerular Filtration Rate 123.1 mL/min (90-130); Glucose 231 mg/dL (65-115); Magnesium 2.1 mg/dL (1.7-2.3); Osmolality Calculated 292 mOsm/kg (285-295); Potassium 4.7 mmol/L (3.5-5.1); Sodium 135 mmol/L (136-145); Total Bilirubin 0.4 mg/dL (0.15-1.2); Total Protein 6.4 g/dL (6.6-8.7)
[2021-07-19 07:16] LABS: NT Pro B Type Natriuretic Pept 290 pg/mL (0-125)
[2021-07-19 08:23] LABS: Slide Review Slide Review Perform
[2021-07-19] MEDS: insulin lispro 100 unit/1 mL SUBCUT ×4 (08:40→20:24)
[2021-07-19] MEDS: hyDRALAzine 10 mg Tablet PO ×3 (08:41→20:11)
[2021-07-19] MEDS: ascorbic acid 500 mg Tablet 1000 MG PO ×2 (08:41→18:00)
[2021-07-19] MEDS: zinc gluconate 50 mg Tablet PO (08:41)
[2021-07-19] MEDS: dilTIAZem ER (24HR) 180 mg Capsule 360 MG PO (08:41)
[2021-07-19] MEDS: spironolactone 25 mg Tablet PO (08:41)
[2021-07-19] MEDS: aspirin 81 mg EC Tablet PO (08:41)
[2021-07-19] MEDS: budesonide 0.5 mg/2 mL Neb INHALATION ×2 (09:19→20:18)
[2021-07-19 11:34] LABS: Glucose Point of Care 172 mg/dL (70-110)
[2021-07-19] MEDS: azithromycin 250 mg Tablet PO (15:42)
[2021-07-19] MEDS: dexamethasone 4 mg/mL INJ 6 MG IVP (15:42)
--- NOTE | 2021-07-19 16:48 | PM.PN ---
Subjective Subjective: Interval history: Patient was seen and examined this morning, overall she is doing better, still has nagging cough, supplemental oxygen requirement is going down, shortness of breath has improved.Her other vitals and labs have been reviewed. Medications: Reviewed: Yes Vitals/I&O/Wt Last Vital Signs Temp 98.0 F 07/19/21 15:23 Pulse 66 07/19/21 15:23 Resp 20 H 07/19/21 15:23 BP 127/60 07/19/21 15:23 Pulse Ox 92 07/19/21 15:23 07/19/21 07/19/21 07/19/21 06:59 14:59 22:59 Intake Total 480 / 480 Output Total 700 / 700 Balance -220 / -220 Physical Exam Const: COMMON NORMALS: patient oriented x3 HENMT: COMMON NORMALS: normocephalic and atraumatic HEAD & SCALP: normocephalic and atraumatic Resp: EFFORT & INSPECTION: Yes abnormal respiratory pattern, Yes tachypneic and Yes Actively coughing OTHER: Diminished air entry bilaterally Cardio: COMMON NORMALS: regular rate, regular rhythm, S1 normal heart sound present, S2 normal heart sound present, No gallops present (Cardio), No murmurs present (Cardio), No rub (Cardio) and Peripheral pulses 2+ throughout RATE: regular rate RHYTHM: regular rhythm HEART SOUNDS: S1 normal heart sound present and S2 normal heart sound present PERIPHERAL PULSES: Peripheral pulses 2+ throughout GI: COMMON NORMALS: Normal to inspection, nondistended, normoactive bowel sounds present, Soft to palpation, non-tender, No hepatosplenomegaly present and no masses AUSCULTATION: Yes normoactive bowel sounds PALPATION: Yes Soft to palpation and Yes No hepatosplenomegaly present RECTAL EXAM: deferred Extremity: COMMON NORMALS: no clubbing, cyanosis or edema and no pedal edema Neuro: COMMON NORMALS: patient oriented x3 Urinary Catheter Management^: Carey: Cath Placed During This Visit: yes, but has since been removed by the nurse Reason for Continuing Indwelling Catheter: Acute Urinary Retention or Obstruction Urinary Catheter Date of Insertion: 07/13/21 Urinary Catheter Time of Insertion: 16:00 Date Urinary Catheter Removed: 07/18/21 Time Urinary Catheter Discontinued: 15:45 Data : 07/19/21 05:28 07/19/21 05:28 Micro: Microbiology 07/17/21 13:28 Gram Stain - Final Sputum - Expectorated Sputum Sputum Culture - Final A&P Assessment and plan (1) Acute respiratory failure with hypoxia: Acute hypoxic respiratory failure secondary to Covid pneumonia: With acute respiratory distress syndrome secondary to COVID-19 Currently on the general medical floors Currently on 8 L Venous ultrasound negative for DVT Patient declined CT angiogram Dexamethasone 6 mg IV daily 04/06 Completed remdesivir Barcitinib 10/11 discontinued, 1 dose Actemra 07/14/2021 Continue Rocephin, azithromycin DuoNebs Advair inhaler Ascorbic acid 1000 mg p.o. twice daily Zinc 50 mg p.o. daily Lovenox 40 mg subcu every 12 hours Daily dose Lasix, -6 L Pulmonary toilet Supplemental oxygen as needed Status is stable, prognosis guarded Type 2 diabetes mellitus, insulin sliding scale, Lantus 5 units twice daily Can discharge the next 24 hours Status: Acute (2) Pneumonia due to COVID-19 virus: Status: Acute (3) COPD (chronic obstructive pulmonary disease): Status: Acute Qualifiers: COPD type: emphysema Emphysema type: panlobular Qualified Code(s): J43.1 - Panlobular emphysema (4) Essential hypertension: Status: Acute (5) Hyponatremia: Hypovolemic hyponatremia: Will encourage p.o. intake Monitor BMP Status: Acute (6) Transaminitis: Status: Acute (7) Acute respiratory distress syndrome (ARDS) due to 2019-nCoV: Status: Acute Additional A&P Information CODE STATUS: Full code DVT prophylaxis: Lovenox 40 subcu every 12 hourly Attestations Medical Necessity Statement*: In hospital for management of Covid pneumonia Coding Level of Care Code Acute Hand Almond Blancher for [facility] Diagnoses Acute respiratory failure with hypoxia J96.01 Pneumonia due to COVID-19 virus U07.1; J12.82 COPD (chronic obstructive pulmonary disease) J43.1 COPD type: emphysema Emphysema type: panlobular Essential hypertension I10 Hyponatremia E87.1 Transaminitis R74.01 Acute respiratory distress syndrome (ARDS) due to 2019-nCoV U07.1; J80
[2021-07-19] MEDS: guaiFENesin 600 mg Tablet 1200 MG PO (18:01)
[2021-07-19] MEDS: cefTRIAXone 1,000 MG in sodium chloride 0.9% (plus) 50 ML 100 MG IV (20:10)
[2021-07-19 20:33] LABS: Glucose Point of Care 291 mg/dL (70-110)
[2021-07-20] VITALS (9 sets, daily range): BP systolic 120–172; BP diastolic 61–81; PULSE 66–95; RESP 16–20; TEMP 36.6–36.9; O2SAT 86–96
[2021-07-20] MEDS: insulin glargine 100 units/1 mL 5 UNIT SUBCUT ×2 (00:48→13:05)
[2021-07-20] MEDS: ipratropium-albuterol 3 mL Neb INHALATION ×2 (03:14→08:46)
[2021-07-20] MEDS: enoxaparin 40 mg/0.4 mL Syringe SUBCUT (05:11)
[2021-07-20] MEDS: budesonide 0.5 mg/2 mL Neb INHALATION (08:46)
[2021-07-20] MEDS: hyDRALAzine 10 mg Tablet PO ×2 (09:16→15:34)
[2021-07-20] MEDS: ascorbic acid 500 mg Tablet 1000 MG PO (09:16)
[2021-07-20] MEDS: spironolactone 25 mg Tablet PO (09:16)
[2021-07-20] MEDS: aspirin 81 mg EC Tablet PO (09:17)
[2021-07-20] MEDS: dilTIAZem ER (24HR) 180 mg Capsule 360 MG PO (09:17)
[2021-07-20] MEDS: guaiFENesin 600 mg Tablet 1200 MG PO (09:17)
[2021-07-20] MEDS: zinc gluconate 50 mg Tablet PO (09:17)
[2021-07-20 11:02] LABS: Glucose Point of Care 214 mg/dL (70-110)
--- NOTE | 2021-07-20 11:19 | PC.SOCIAL ---
IMM Update Imm dated and initialed and copy given to patient.
[2021-07-20] MEDS: insulin lispro 100 unit/1 mL SUBCUT (13:00)
[2021-07-20] MEDS: azithromycin 250 mg Tablet PO (15:34)
[2021-07-20] MEDS: dexamethasone 4 mg/mL INJ 6 MG IVP (15:34)
--- NOTE | 2021-07-20 15:41 | P.DS_ITS ---
Discharge Providers Date of Admission: 07/11/21 12:30 Date of Discharge: July 20, 2021 Attending Provider at Admission: Andrez Strange MD Attending Provider at Discharge: Andrez Strange MD Primary Care Provider: Brain Wright DO Diagnoses at Discharge Discharge Diagnosis (1) Acute respiratory failure with hypoxia: Status: Acute (2) Pneumonia due to COVID-19 virus: Status: Acute (3) COPD (chronic obstructive pulmonary disease): Status: Acute Qualifiers: COPD type: emphysema Emphysema type: panlobular Qualified Code(s): J43.1 - Panlobular emphysema (4) Essential hypertension: Status: Acute (5) Hyponatremia: Status: Acute (6) Transaminitis: Status: Acute (7) Acute respiratory distress syndrome (ARDS) due to 2019-nCoV: Status: Acute Reason for Visit Reason for Visit: RESP DISTRESS Hospital Course Hospital Course 66 year old female with past medical history of hypertension, COPD on 2 ls home oxygen, came in with chief complaint of worsening shortness of breath , cough generalized fatigue and weakness going on for the last few days.Sister recently diagnosed with Covid. She was admitted for the management of acute hypoxic respiratory failure secondary to Covid pneumonia, hospital course was complicated by development of ARDS secondary to Covid pneumonia..she was kept on Covid protocol (steroids, completed 5-day course of remdesivir, received 1 dose of Actemra, baricitinib was stopped after 2 doses , Vitamin C, zinc, vitamin D, empirically on antibiotics, supplemental oxygen as needed, during the initial stages of hospital stay she required very high supplemental oxygen through heated high flow oxygen nasal cannula, as well as as needed BiPAP, inflammatory markers were trended, bacterial antigen panel was negative, blood culture was negative, pertinent imaging studies included CTA chest: No PE was found, A 3.2 cm cavitary lesion in the lower lobe of the right lung. This has a relatively broad differential including malignancy, fungal or atypical infection, sequela of prior infarct or prior infection as well as noninfectious granulomatous processes, serial x-ray chest monitoring was done, ABG was done, She was kept on other conservative respiratory support measures (DuoNebs, incentive spirometer/flutter valve). Patient responded well to above medical management she was discharged on albuterol, Advair and Pulmicort inhaler, PO ascorbic acid , zinc, Tessalon Perles as needed. She will follow with pulmonary medicine as an outpatient, as well as a primary care physician. Patient qualified for 5 LS supplemental home oxygen on exertion. Physical Exam Const: COMMON NORMALS: patient oriented x3 HENMT: COMMON NORMALS: normocephalic and atraumatic HEAD & SCALP: normocephalic and atraumatic Resp: EFFORT & INSPECTION: Yes abnormal respiratory pattern, Yes tachypneic and Yes Actively coughing OTHER: Diminished air entry bilaterally Cardio: COMMON NORMALS: regular rate, regular rhythm, S1 normal heart sound present, S2 normal heart sound present, No gallops present (Cardio), No murmurs present (Cardio), No rub (Cardio) and Peripheral pulses 2+ throughout RATE: regular rate RHYTHM: regular rhythm HEART SOUNDS: S1 normal heart sound present and S2 normal heart sound present PERIPHERAL PULSES: Peripheral pulses 2+ throughout GI: COMMON NORMALS: Normal to inspection, nondistended, normoactive bowel sounds present, Soft to palpation, non-tender, No hepatosplenomegaly present and no masses AUSCULTATION: Yes normoactive bowel sounds PALPATION: Yes Soft to palpation and Yes No hepatosplenomegaly present RECTAL EXAM: deferred Extremity: COMMON NORMALS: no clubbing, cyanosis or edema and no pedal edema Neuro: COMMON NORMALS: patient oriented x3 Urinary Catheter Management^: Carey: Cath Placed During This Visit: yes, but has since been removed by the nurse Reason for Continuing Indwelling Catheter: Acute Urinary Retention or Obstruction Urinary Catheter Date of Insertion: 07/13/21 Urinary Catheter Time of Insertion: 16:00 Date Urinary Catheter Removed: 07/18/21 Time Urinary Catheter Discontinued: 15:45 Discharge Data Data Completed and Pending: Completed Studies During Hospitalization Category Date Time Status XR chest 1V bradly ble [id number] Routine Exams 07/13/21 12:42 Completed XR chest 1V bradly ble [id number] Routine Exams 07/14/21 07:00 Completed XR chest 1V bradly ble [id number] Routine Exams 07/17/21 07:00 Completed XR chest 1V bradly ble [id number] Stat Exams 07/11/21 10:24 [place] [id number] Routin e Ultrasound 07/13/21 12:44 Completed Pending at discharge Category Date Time Status Erythrocyte Sedim entation Rate AM L ABS Lab 07/13/21 05:55 Stop Req Labs from last 24 hours 07/20/21 07/19/21 10:46 20:14 POC Glucose 214 H 291 H Vitals: Last Vital Signs Temp 98.4 F 07/20/21 15:00 Pulse 66 07/20/21 15:00 Resp 16 07/20/21 15:00 BP 120/61 07/20/21 15:00 Pulse Ox 86 L 07/20/21 15:28 Discharge Plan Discharge Patient Disposition: Home Condition: Stable Prescriptions: New benzonatate 100 mg Capsule 100 mg PO TID PRN (Reason: Cough) Qty: 20 RF: 0 Vitamin C 500 mg Tablet 1,000 mg PO BID Qty: 14 RF: 0 zinc gluconate 50 mg Tablet 50 mg PO DAILY Qty: 7 RF: 0 budesonide 90 mcg/actuation aerosol powdr breath activated 1 inh inhalation BID Qty: 1 RF: 0 ProAir HFA 90 mcg/actuation HFA aerosol inhaler 1 inh inhalation Q6H PRN (Reason: shortness of breath or wheezing) Qty: 6.7 RF: 0 Advair HFA 115-21 mcg/actuation HFA aerosol inhaler 2 inh inhalation BID 30 Days Qty: 12 RF: 1 Continued albuterol sulfate 2.5 mg /3 mL (0.083 %) solution for nebulization 2.5 mg INHALATION QID PRN (Reason: Shortness Of Breath) RF: 0 aspirin [Adult Aspirin Regimen] 81 mg tablet,delayed release (DR/EC) 81 mg PO DAILY RF: 0 (DME) oxygen See Rx Instructions .Route .MEDSUPPLY Qty: 1 RF: 0 Combivent Respimat 20-100 mcg/actuation mist 1 puff inhalation QID Qty: 4 RF: 0 diltiazem HCl 360 mg capsule,extended release 24 hr 360 mg PO DAILY Qty: 30 RF: 5 nystatin 100,000 unit/gram cream 1 applic TOPICAL BID Qty: 30 RF: 5 mupirocin 2 % ointment 1 applic topical BID Qty: 15 RF: 5 Discharge Orders: Discharge Order (Routine); Ordered 07/20/21 Ordered By: Andrez Strange Other Ambulatory Orders: DME: Oxygen (Order) Location: None Selected Ordered By: Andrez Strange Referrals: Datar,Jerson Trejo MD [Physician] - 09/02/21 2:00 pm Discharge Diet: Diabetic Discharge Activity: Increase activity as tolerated Patient Instructions: Benzonatate (By mouth), Zinc Sulfate (By mouth), Budesonide (By breathing), Using Oxygen at Home (GEN), Hypoxia (GEN), Opioid Safety Discharge Attestations Time Spent in Discharge Care*: less than 30 min Specific Discharge Activities: educating patient, educating and/or supporting family/caregiver, discussing with pcp/other providers, discussing with sample case porter/social workers/dc planners, documenting/other paperwork and evaluating patient/reviewing data Status at Discharge: Cognitive status at discharge: cognitively intact , Behavioral status at discharge: cooperative , Functional status at discharge: independent ambulation Overall status at discharge: patient is progressing back to baseline Quality Metrics Clinical Quality Measures During this hospital stay, did patient experience: None Coding Level of Care Code Acute Chg FW DC note Exam Detailed Diagnoses Acute respiratory failure with hypoxia J96.01 Pneumonia due to COVID-19 virus U07.1; J12.82 COPD (chronic obstructive pulmonary disease) J43.1 COPD type: emphysema Emphysema type: panlobular Essential hypertension I10 Hyponatremia E87.1 Transaminitis R74.01 Acute respiratory distress syndrome (ARDS) due to 2019-nCoV U07.1; J80
== END 2021-07-20 17:23 | disposition home or self-care (01) | DRG 177 ==
LOC: ER 12:09 → MEDSURG 14:03 → ICU 07-13 18:31 → MEDSURG 07-17 16:50
PROVIDERS: Family Medicine; Admitting Provider Internal Medicine; Emergency Provider Emergency Medicine; PCP Family Medicine; Visit Provider Internal Medicine
DX: U07.1 COVID-19 (principal); J12.82 Pneumonia due to coronavirus disease 2019; J80 Acute respiratory distress syndrome; E87.1 Hypo-osmolality and hyponatremia; J43.1 Panlobular emphysema; I10 Essential (primary) hypertension; R73.9 Hyperglycemia, unspecified; Z87.891 Personal history of nicotine dependence; R91.8 Other nonspecific abnormal finding of lung field; Z79.51 Long term (current) use of inhaled steroids; Z79.82 Long term (current) use of aspirin
CPT/HCPCS: 36415; 36416; 36600; 51702; 71045; 74018; 80051; 80053; 81001; 82330; 82550; 82728; 82803; 82805; 82962; 83036; 83605; 83690; 83735; 83880; 84100; 84145; 84484; 85025; 85378; 85384; 85610; 85651; 85730; 86140; 86403; 87040; 87070; 87205; 87426; 93005; 93970; 94640; 94664; 96372; 96374; 99283; 99285; J0456; J0696; J1100; J1650; J1815 ×2; J1885; J1940; J2930; J3262; J7050; J7626; Q0144

== ENCOUNTER 2023-01-04 15:12 | Oncology outpatient (recurring) (ONCR) | payer MEDICARE, MEDICAID, SELFPAY | END 2023-01-25 23:59 | disposition home or self-care (01) | LOC: ONCMED 15:12 | PROVIDERS: PCP Family Medicine; Visit Provider Internal Medicine Hematology & Oncology | DX: C34.31 Malignant neoplasm of lower lobe, right bronchus or lung (principal); C77.8 Secondary and unspecified malignant neoplasm of lymph nodes of multiple regions; J44.9 Chronic obstructive pulmonary disease, unspecified; E66.01 Morbid (severe) obesity due to excess calories; Z68.42 Body mass index [BMI] 45.0-49.9, adult; Z87.891 Personal history of nicotine dependence | CPT/HCPCS: 99214 ==

== ENCOUNTER 2023-01-17 15:09 | Emergency (ER) | payer MEDICARE, MEDICAID, SELFPAY ==
[2023-01-17 15:33] VITALS: BP 158/81; PULSE 74; RESP 18; TEMP 36.8; O2SAT 95; BMI 29.8
[2023-01-17 16:06] VITALS: BP 155/84; PULSE 81; RESP 16; O2SAT 94
--- NOTE | 2023-01-17 16:26 | W.ED.EPISTAX ---
HPI - Epistaxis General: Chief complaint: Epistaxis Stated complaint: nose bleed x 1hr Time Seen by Provider: 01/17/23 15:46 Source: patient Mode of arrival: EMS History of Present Illness: 67-year-old female presents emergency room with complaints of epistaxis. She is on aspirin and clopidogrel. She has a history of coronary disease and A-fib atrial fibrillation. She had bleeding for couple hours prior to arrival it stopped while in route and has not restarted since she arrived here. She denies any chest pain. No facial pain or tenderness no recent nasal drainage no fever sweats or chills MD complaint: epistaxis Location: bilateral nostril Onset (ago): hour(s) Duration: now resolved Context: other anticoagulant use Associated symptoms: Deny fever(s), headache(s), sinus pain, syncope, vomiting or weakness Review of Systems Const: Denies: fever(s), chills, fatigue or malaise ENMT: Reports: epistaxis; Denies: nasal discharge, nasal congestion or sinus pain Card: Denies: syncope Resp: Denies: dyspnea, productive cough or non-productive cough GI: Denies: vomiting : Denies: flank pain, difficulty voiding, dysuria, urinary frequency or urinary urgency Skin/Breast: Denies: rash or pruritus Neuro: Denies: headache(s) PFSH ED PFSH: Medical History Arthritis COPD (chronic obstructive pulmonary disease) Enrolled in chronic care management Essential hypertension Hyperglycemia without ketosis Non-small cell lung cancer Family History Father , heart attack No problems noted. Mother , PE No problems noted. Sister , heart attack No problems noted. Social History Smoking and tobacco status: former smoker Quit status (tobacco): has quit using tobacco Year quit tobacco: 2017 Physical Exam Const: COMMON NORMALS: no acute distress GENERAL APPEARANCE: cooperative and comfortable ORIENTATION/CONSCIOUSNESS: Yes awake, Yes oriented to person, Yes oriented to place and Yes oriented to time HENMT: COMMON NORMALS: normocephalic, atraumatic and hearing grossly normal bilaterally HEAD & SCALP: normocephalic and atraumatic Resp: COMMON NORMALS: normal respiratory effort, No retractions, No use of accessory muscles and clear to auscultation bilaterally AUSCULTATION: clear to auscultation bilaterally Cardio: COMMON NORMALS: regular rate, regular rhythm and No murmurs present (Cardio) RATE: regular rate RHYTHM: regular rhythm GI: COMMON NORMALS: Soft to palpation and No hepatosplenomegaly present AUSCULTATION: Yes normoactive bowel sounds PALPATION: Yes Soft to palpation, No Tenderness to palpation present (GI), No Guarding due to palpation present (GI) and Yes No hepatosplenomegaly present Extremity: COMMON NORMALS: normal to inspection, capillary refill normal, no clubbing, cyanosis or edema, no calf tenderness and no pedal edema Neuro: SENSORIUM/ORIENTATION: Yes oriented to person, Yes oriented to place and Yes oriented to time Skin: COMMON NORMALS: no rashes or lesions noted GENERAL SKIN EXAM: no rashes or lesions noted Course Vital Signs: Vital signs: Vital Signs Temperature 98.2 F 01/17/23 15:33 Pulse Rate 81 01/17/23 16:06 Respiratory Rate 16 01/17/23 16:06 Blood Pressure 155/84 01/17/23 16:06 Pulse Oximetry 94 01/17/23 16:06 Oxygen Delivery Me thod Nasal Cannula 01/17/23 16:06 Oxygen Flow Rate 3 01/17/23 16:06 MDM - Epistaxis Medical Decision Making Epistaxis resolved on arrival. EKG unremarkable. She has a musculoskeletal posterior left shoulder pain but that is reproducible with palpation and motion she thinks it is from leaning against a chair. We will discharge patient home cefdinir twice daily for 5 days topical antibiotic inside the nares for 7 days twice daily. If has recurrent epistaxis recommend follow-up with primary care for referral to ENT for further evaluation since she will continue to need to be on aspirin and Plavix for some time to come Medical Records I reviewed the patient's medical records. Lab Data I reviewed the patient's lab results. 01/17/23 16:15 Laboratory Results WBC 12.6 10^3/uL (4.0-10.0) H 01/17/23 16:15 RBC 3.97 10^6/uL (4.1-5.3) L 01/17/23 16:15 Hgb 11.5 g/dL (11.5-15.3) 01/17/23 16:15 Hct 36.6 % (37.0-47.0) L 01/17/23 16:15 MCV 92.2 fl (81-99) 01/17/23 16:15 MCH 29.0 pg (28.0-34.0) 01/17/23 16:15 MCHC 31.4 g/dL (30.0-36.0) 01/17/23 16:15 RDW 14.0 % (12.1-15.1) 01/17/23 16:15 Plt Count 266 10^3/cmm (130-400) 01/17/23 16:15 MPV 11.1 fL (7.4-10.4) H 01/17/23 16:15 Neut % (Auto) 68.7 % 01/17/23 16:15 Lymph % (Auto) 20.3 % 01/17/23 16:15 Wilson % (Auto) 8.8 % 01/17/23 16:15 Eos % (Auto) 1.2 % 01/17/23 16:15 Baso % (Auto) 0.5 % 01/17/23 16:15 Neut # (Auto) 8.65 10^3/uL (1.8-7.7) H 01/17/23 16:15 Lymph # (Auto) 2.6 10^3/uL (0.8-4.8) 01/17/23 16:15 Wilson # (Auto) 1.1 10^3/uL (0.2-0.9) H 01/17/23 16:15 Eos # (Auto) 0.2 10^3/uL (0.0-0.8) 01/17/23 16:15 Baso # (Auto) 0.1 10^3/uL (0.0-0.1) 01/17/23 16:15 Nucleated RBC % (auto) 0 % 01/17/23 16:15 Nucleated RBCs # 0.0 /100WBC 01/17/23 16:15 Discharge Plan Discharge Patient Disposition: Home Clinical Impression: Epistaxis Condition: Stable Prescriptions: New cefdinir 300 mg capsule 300 mg PO BID 5 Days Qty: 10 0RF mupirocin 2 % ointment 1 applic topical BID Qty: 15 0RF Rx Instructions: Apply to nares twice daily for the next 7 days No Action aspirin [Adult Aspirin Regimen] 81 mg tablet,delayed release (DR/EC) 81 mg PO DAILY Jardiance 10 mg tablet 10 mg PO DAILY metoprolol tartrate 100 mg tablet 100 mg PO DAILY furosemide 40 mg tablet 40 mg PO DAILY spironolactone 25 mg tablet 25 mg PO DAILY pantoprazole 40 mg tablet,delayed release (DR/EC) 40 mg PO DAILY lisinopril 10 mg tablet 10 mg PO DAILY clopidogrel 75 mg tablet 75 mg PO DAILY atorvastatin 40 mg tablet 40 mg PO DAILY oxycodone-acetaminophen [Percocet] 5-325 mg tablet 1 tab PO .Q4-6H PRN (Reason: pain) 30 Days Qty: 60 0RF (DME) oxygen See Rx Instructions .Route .MEDSUPPLY Qty: 1 0RF Rx Instructions: As directed at HS Discharge Orders: Discharge ED (Routine); Ordered 01/17/23 Ordered By: Stan Casey Referrals: Brain Wright DO [Primary Care Provider] - Patient Instructions: Nosebleed (ED), Opioid Safety, Pain Management Activity Restrictions/Additional Instructions: You are seen today for nosebleed. Since the bleeding and stopped at the time he arrived we did not intervene. Would recommend that you use antibiotic 1 pill twice daily for 5 days and gently apply the antibiotic ointment inside the nares twice daily for 7 days. If you have recurrent nosebleeds recommend that you follow-up with your primary care doctor for consideration of referral to ENT. Coding Level of Care Code ED Power Plant Inspector for Alex Ingram
[2023-01-17 16:37] LABS: Basophils # 0.1 10^3/uL (0.0-0.1); Basophils % 0.5 %; Eosinophils # 0.2 10^3/uL (0.0-0.8); Eosinophils % 1.2 %; Hematocrit 36.6 % (37.0-47.0); Hemoglobin 11.5 g/dL (11.5-15.3); Lymphocytes # 2.6 10^3/uL (0.8-4.8); Lymphocytes % 20.3 %; Mean Corpuscular HGB Conc 31.4 g/dL (30.0-36.0); Mean Corpuscular Volume 92.2 fl (81-99); Mean Platelet Volume 11.1 fL (7.4-10.4); Monocytes # 1.1 10^3/uL (0.2-0.9); Monocytes % 8.8 %; Neutrophils # 8.65 10^3/uL (1.8-7.7); Neutrophils % 68.7 %; Nucleated Red Blood Cells % 0 %; Platelet Count 266 10^3/cmm (130-400); Red Blood Count 3.97 10^6/uL (4.1-5.3); White Blood Count 12.6 10^3/uL (4.0-10.0)
--- NOTE | 2023-01-17 16:56 | ECG_ITS ---
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 Measurements Intervals [place] Rate: 79 P: 43 FL: 149 QRS: -2 QRSD: 86 T: 75 QT: 376 QTc: 433 Interpretive Statements SINUS RHYTHM POSSIBLE LEFT ATRIAL ENLARGEMENT [-0.1mV P-WAVE IN V1/V2] LOW QRS VOLTAGE IN PRECORDIAL LEADS [QRS DEFLECTION < 1.0 mV IN CHEST LEADS] NONSPECIFIC T-WAVE ABNORMALITY Compared to ECG 07/11/2021 16:43:49 Low QRS voltage now present T-wave abnormality now present Electronically Signed On 01-18-2023 22:16:47 CDT by Sury Trejo M.D. [id number]
== END 2023-01-17 17:32 | disposition home or self-care (01) ==
PROVIDERS: Emergency Provider Family Medicine; PCP Family Medicine
DX: R04.0 Epistaxis (principal); Z79.82 Long term (current) use of aspirin; Z79.02 Long term (current) use of antithrombotics/antiplatelets; J44.9 Chronic obstructive pulmonary disease, unspecified; I10 Essential (primary) hypertension; Z85.118 Personal history of other malignant neoplasm of bronchus and lung; Z87.891 Personal history of nicotine dependence
CPT/HCPCS: 36415; 85025; 93005; 99283

== ENCOUNTER 2023-01-25 09:11 | Emergency (ER) | payer MEDICARE, MEDICAID, SELFPAY ==
[2023-01-25 09:35] VITALS: BP 197/87; PULSE 77; RESP 18; TEMP 36.6; O2SAT 92; BMI 47.0
[2023-01-25 09:48] VITALS: RESP 14
--- NOTE | 2023-01-25 09:58 | ED_ITS ---
HPI - Epistaxis General: Chief complaint: Epistaxis Stated complaint: nose bleed Time Seen by Provider: 01/25/23 09:33 Source: patient Mode of arrival: ambulatory Limitations: no limitations History of Present Illness: Patient is a 67-year-old female presents to ED today for evaluation of epistaxis. Patient states her nose began bleeding yesterday. She was seen at [facility] ED and had a Rhino Rocket placed to her right nare. Patient states she wants this removed. She states she is still oozing blood from the Rhino Rocket. Patient was seen here at our facility about a week or so ago for a nosebleed. She does take Plavix daily. She is on chronic nasal cannula oxygen. She does not have a humidifier on this. MD complaint: epistaxis Location: right nostril Onset (ago): day(s) Duration: constant Context: other anticoagulant use Associated symptoms: Reports no associated symptoms; Deny fever(s), headache(s), sinus pain or vomiting Treatment prior to arrival: other (Rhino Rocket placed to right nare by [facility] yesterday) Review of Systems Const: Denies: fever(s), chills, body aches, fatigue or malaise ENMT: Reports: epistaxis; Denies: throat pain, odynophagia, ear or mastoid pain, ear discharge, change in hearing, nasal congestion, nasal obstruction, post nasal drip or sinus pain Card: Denies: chest pain Resp: Denies: dyspnea GI: Denies: abdominal pain, nausea or vomiting Musc: Denies: neck pain, back pain, extremity pain or joint pain Skin/Breast: Denies: rash Neuro: Denies: headache(s), dizziness or confusion PFSH ED PFSH: Medical History Arthritis COPD (chronic obstructive pulmonary disease) Enrolled in chronic care management Essential hypertension Hyperglycemia without ketosis Non-small cell lung cancer Family History Father , heart attack No problems noted. Mother , PE No problems noted. Sister , heart attack No problems noted. Social History Smoking and tobacco status: former smoker Quit status (tobacco): has quit using tobacco Year quit tobacco: 2017 Physical Exam Const: COMMON NORMALS: no acute distress, patient oriented x3, no limitations and alert GENERAL APPEARANCE: cooperative NUTRITIONAL APPEARANCE: obese morbidly obese ORIENTATION/CONSCIOUSNESS: Yes awake, Yes oriented to person, Yes oriented to place and Yes oriented to time HENMT: COMMON NORMALS: normocephalic and atraumatic HEAD & SCALP: normal to inspection, normocephalic and atraumatic FACE & SINUS: normal facial exam NOSE: Other nasal findings present (rhino rocket R nare; no active bleeding) OTHER: rhino rocket removed per patient request; no active bleeding/source noted; some scant blood tinged nasal secretions; went ahead and instilled Afrin and nasal clamp; patient was reassessed 15 to 20 minutes later and there is no bleeding Neuro: COMMON NORMALS: patient oriented x3 SENSORIUM/ORIENTATION: Yes alert, Yes oriented to person, Yes oriented to place and Yes oriented to time Course Vital Signs: Vital signs: Vital Signs Temperature 97.9 F 01/25/23 09:35 Pulse Rate 77 01/25/23 09:35 Respiratory Rate 14 01/25/23 09:48 Blood Pressure 136/77 01/25/23 11:36 Pulse Oximetry 92 01/25/23 09:35 Oxygen Delivery Me thod Nasal Cannula 01/25/23 09:35 Oxygen Flow Rate 3 01/25/23 09:35 MDM - Epistaxis Medical Decision Making Rhino Rocket was removed at patient's request. There is no active bleeding at this time. She states [facility] was going to set her up with ENT so is awaiting this appointment. She states she believes her oxygen at home does have a setting for a humidifier. This may help if epistaxis is related to her oxygen/nasal cannula use. She was given topical mupirocin approximately a week ago for instructions to place on her nare so she can continue this as well. Discussed blood pressure control. At this time patient is stable for discharge. Discharge Plan Discharge Patient Disposition: Home Clinical Impression: Epistaxis Condition: Stable Prescriptions: No Action aspirin [Adult Aspirin Regimen] 81 mg tablet,delayed release (DR/EC) 81 mg PO DAILY Jardiance 10 mg tablet 10 mg PO DAILY metoprolol tartrate 100 mg tablet 100 mg PO DAILY furosemide 40 mg tablet 40 mg PO DAILY spironolactone 25 mg tablet 25 mg PO DAILY pantoprazole 40 mg tablet,delayed release (DR/EC) 40 mg PO DAILY lisinopril 10 mg tablet 10 mg PO DAILY clopidogrel 75 mg tablet 75 mg PO DAILY atorvastatin 40 mg tablet 40 mg PO DAILY oxycodone-acetaminophen [Percocet] 5-325 mg tablet 1 tab PO .Q4-6H PRN (Reason: pain) 30 Days Qty: 60 0RF (DME) oxygen See Rx Instructions .Route .MEDSUPPLY Qty: 1 0RF Rx Instructions: As directed at HS mupirocin 2 % ointment 1 applic topical BID Qty: 15 0RF Rx Instructions: Apply to nares twice daily for the next 7 days Discharge Orders: Discharge ED (Routine); Ordered 01/25/23 Ordered By: Bee Diana Patient Instructions: Epistaxis - Adult Coding Level of Care Code ED Design Editor for Alex Ingram
[2023-01-25] MEDS: oxymetazoline 0.05% Nasal Spray 15 mL 2 SPRAY NOSTRIL-R (10:52)
[2023-01-25 11:36] VITALS: BP 136/77
--- NOTE | 2023-01-31 14:49 | DCPLANNER ---
treasury manager called patient due to no primary care physician - patient stated that she has a physician that she sees.
== END 2023-01-25 11:38 | disposition home or self-care (01) ==
PROVIDERS: Emergency Provider Physician Assistant
DX: R04.0 Epistaxis (principal); Z79.82 Long term (current) use of aspirin; Z79.02 Long term (current) use of antithrombotics/antiplatelets; Z87.891 Personal history of nicotine dependence; J44.9 Chronic obstructive pulmonary disease, unspecified; I10 Essential (primary) hypertension; Z85.118 Personal history of other malignant neoplasm of bronchus and lung
CPT/HCPCS: 99283

== ENCOUNTER 2023-02-10 23:08 | Emergency (ER) | payer MEDICARE, MEDICAID, SELFPAY ==
[2023-02-10 23:10] VITALS: BP 182/78; PULSE 95; RESP 18; TEMP 36.6; O2SAT 96; BMI 39.4
[2023-02-11] MEDS: oxymetazoline 0.05% Nasal Spray 15 mL 2 SPRAY NOSTRIL-R (00:49)
[2023-02-11] MEDS: tranexamic acid 1,000 mg/10mL SDV 1000 MG IRRIGATION (00:49)
[2023-02-11] MEDS: gelatin 12-7 mm Sponge 1 EACH TOPICAL (00:50)
[2023-02-11 00:59] VITALS: BP 179/117; PULSE 100; RESP 14; O2SAT 91
--- NOTE | 2023-02-11 01:00 | PC.NURSE ---
to bedside. MD sprayed 1 spray afrin in each nare, applied TXA to gel foam, and inserted gel foam into right nare. Pt tolerated well.
--- NOTE | 2023-02-11 02:30 | PC.NURSE ---
Pt nose continues to bleed. MD at bedside for silver nitrite application to nose.
--- NOTE | 2023-02-11 02:50 | PC.NURSE ---
Pt continues to have small amount of bleeding, now only requiring dabs of tissue rather than suction.
--- NOTE | 2023-02-11 03:15 | ED_ITS ---
HPI - Epistaxis General: Chief complaint: Epistaxis Stated complaint: NOSE BLEED Time Seen by Provider: 02/10/23 23:53 Source: patient History of Present Illness: 67-year-old female who is on aspirin and Plavix. She presents with epistaxis. She has had epistaxis several times recently. Nasal tampon was placed in [place] recently, with removal here. She presents with recurrence. She is coughing up some clots. She tried pressure at home. MD complaint: epistaxis Location: right nostril Onset (ago): hour(s) Duration: constant Context: history of previous and aspirin use Associated symptoms: Reports vomiting; Deny fever(s), headache(s), sinus pain or syncope Treatment prior to arrival: nose pinching Review of Systems Const: Denies: fever(s) Eyes: Denies: change in vision ENMT: Denies: throat pain or sinus pain Card: Denies: chest pain, palpitations or syncope Resp: Denies: dyspnea or productive cough GI: Reports: vomiting Neuro: Denies: headache(s) PFSH ED PFSH: Medical History Arthritis COPD (chronic obstructive pulmonary disease) Enrolled in chronic care management Essential hypertension Hyperglycemia without ketosis Non-small cell lung cancer Family History Father , heart attack No problems noted. Mother , PE No problems noted. Sister , heart attack No problems noted. Social History Smoking and tobacco status: former smoker Quit status (tobacco): has quit using tobacco Year quit tobacco: 2017 Physical Exam Const: COMMON NORMALS: no acute distress GENERAL APPEARANCE: frail appearing (Mildly); not ill appearing NUTRITIONAL APPEARANCE: obese ORIENTATION/CONSCIOUSNESS: Yes awake, Yes oriented to person and Yes oriented to place HENMT: COMMON NORMALS: normocephalic, atraumatic and Normal external nose present HEAD & SCALP: normocephalic and atraumatic FACE & SINUS: normal facial exam and face symmetric NOSE: Normal external nose present and Epistaxis present on the right anterior source, active bleeding and clots present Eye: COMMON NORMALS: Equal, round and reactive pupils present and EOMs intact bilaterally PUPIL: Yes Equal, round and reactive pupils present Neck/C-Spine: GENERAL: Yes trachea midline Chest: CHEST: Yes Symmetrical chest wall rise Resp: COMMON NORMALS: normal respiratory effort, No use of accessory muscles and clear to auscultation bilaterally AUSCULTATION: clear to auscultation bilaterally Cardio: COMMON NORMALS: regular rate and regular rhythm RATE: regular rate RHYTHM: regular rhythm GI: COMMON NORMALS: Normal to inspection, nondistended, normoactive bowel sounds present Extremity: GENERAL: Yes edema Neuro: BIMAL COMA SCALE: document GCS findings [employer] coma scale eye opening: Spontaneous Bimal coma scale verbal response: Orientated Bimal coma scale motor response: Obey commands [employer] coma scale total score: 15 SENSORIUM/ORIENTATION: Yes oriented to person and Yes oriented to place Procedures Epistaxis Control Time Out Performed: No Nostril: right Nose Prepped With: phenylephrine Direct Inspection: yes and anterior source identified Clots Removed by: suction Cautery Used: silver nitrate Patient Tolerated Procedure: well and no complications Course Vital Signs: Vital signs: Vital Signs Temperature 98 F 02/10/23 23:10 Pulse Rate 97 02/11/23 03:46 Respiratory Rate 16 02/11/23 03:46 Blood Pressure 144/100 02/11/23 03:46 Pulse Oximetry 97 02/11/23 03:46 Oxygen Delivery Me thod Nasal Cannula 02/11/23 03:20 Oxygen Flow Rate 3 02/11/23 03:20 MDM - Epistaxis Medical Decision Making Management initially was with Afrin spray to the nose followed by tranexamic acid soaked Gelfoam. Nasal clamp applied. Can clamp was later removed, Gelfoam removed, suction was used to clear clot. Cautery performed with silver nitrate. Patient is much improved. No bleeding currently. She has walked without increase in bleeding. She wishes to go home. She is essentially asymptomatic at this point. She will need outpatient follow-up with ENT. She is instructed to return for worsening bleeding. She also was instructed not to use her oxygen on that side of her nose if possible for the next 48 hours, etc. Discharge Plan Discharge Patient Disposition: Home Clinical Impression: Acute anterior epistaxis Condition: Stable Prescriptions: No Action aspirin [Adult Aspirin Regimen] 81 mg tablet,delayed release (DR/EC) 81 mg PO DAILY Jardiance 10 mg tablet 10 mg PO DAILY metoprolol tartrate 100 mg tablet 100 mg PO DAILY furosemide 40 mg tablet 40 mg PO DAILY spironolactone 25 mg tablet 25 mg PO DAILY pantoprazole 40 mg tablet,delayed release (DR/EC) 40 mg PO DAILY lisinopril 10 mg tablet 10 mg PO DAILY clopidogrel 75 mg tablet 75 mg PO DAILY atorvastatin 40 mg tablet 40 mg PO DAILY oxycodone-acetaminophen [Percocet] 5-325 mg tablet 1 tab PO .Q4-6H PRN (Reason: pain) 30 Days Qty: 60 0RF (DME) oxygen See Rx Instructions .Route .MEDSUPPLY Qty: 1 0RF Rx Instructions: As directed at HS mupirocin 2 % ointment 1 applic topical BID Qty: 15 0RF Rx Instructions: Apply to nares twice daily for the next 7 days Discharge Orders: Discharge ED (Routine); Ordered 02/11/23 Ordered By: Rishabh Mccarthy Referrals: Brain Wright DO [Primary Care Provider] - 4-7 days Mart Briseno MD [Physician] - 1-3 days Patient Instructions: Nosebleed (ED) Activity Restrictions/Additional Instructions: Do not use oxygen on the right side of your nose for the next 48 hours. Humidified air may help. Do not blow your nose for the next 48 hours. Return for worsening bleeding, passing clots, etc. call the ENT clinic Monday, let them know you were seen here for nosebleeding that had to be cauterized. See them in follow-up this week. 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
[2023-02-11 03:20] VITALS: BP 144/100; PULSE 97; RESP 16; O2SAT 97
[2023-02-11 03:46] VITALS: BP 144/100; PULSE 97; RESP 16; O2SAT 97
== END 2023-02-11 03:48 | disposition home or self-care (01) ==
PROVIDERS: Emergency Provider Emergency Medicine; PCP Family Medicine
DX: R04.0 Epistaxis (principal); Z79.82 Long term (current) use of aspirin; Z79.02 Long term (current) use of antithrombotics/antiplatelets; Z87.891 Personal history of nicotine dependence; J44.9 Chronic obstructive pulmonary disease, unspecified; I10 Essential (primary) hypertension; Z85.118 Personal history of other malignant neoplasm of bronchus and lung
CPT/HCPCS: 30901; 99283

== ENCOUNTER 2023-02-11 04:48 | Emergency (ER) | payer MEDICARE, MEDICAID, SELFPAY ==
[2023-02-11 04:53] VITALS: BP 149/77; PULSE 101; RESP 18; TEMP 36.6; O2SAT 95; BMI 46.3
--- NOTE | 2023-02-11 05:39 | ECG_ITS ---
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 Measurements Intervals [place] Rate: 97 P: -13 HI: 155 QRS: -3 QRSD: 90 T: 68 QT: 355 QTc: 452 Interpretive Statements SINUS RHYTHM WITH OCCASIONAL VENTRICULAR PREMATURE COMPLEXES MINIMAL VOLTAGE CRITERIA FOR LVH, CONSIDER NORMAL VARIANT [MEETS CRITERIA IN ONE OF: R(aVL), S(V1), R(V5), R(V5/V6)+S(V1)] NONSPECIFIC T-WAVE ABNORMALITY Compared to ECG 01/17/2023 16:56:17 Ventricular premature complex(es) now present T-wave abnormality still present Electronically Signed On 02-11-2023 7:48:33 CDT by Obdulio Robert M.D. [email or web address]
[2023-02-11 05:40] LABS: Basophils # 0.1 10^3/uL (0.0-0.1); Basophils % 0.4 %; Eosinophils # 0.1 10^3/uL (0.0-0.8); Eosinophils % 0.6 %; Hematocrit 35.2 % (37.0-47.0); Hemoglobin 10.8 g/dL (11.5-15.3); Lymphocytes # 3.4 10^3/uL (0.8-4.8); Lymphocytes % 23.3 %; Mean Corpuscular HGB Conc 30.7 g/dL (30.0-36.0); Mean Corpuscular Hemoglobin 27.5 pg (28.0-34.0); Mean Corpuscular Volume 89.6 fl (81-99); Mean Platelet Volume 10.4 fL (7.4-10.4); Monocytes # 1.2 10^3/uL (0.2-0.9); Monocytes % 8.2 %; Neutrophils # 9.85 10^3/uL (1.8-7.7); Nucleated Red Blood Cells % 0 %; Platelet Count 278 10^3/cmm (130-400); Red Blood Count 3.93 10^6/uL (4.1-5.3); Red Cell Distribution Width 14.2 % (12.1-15.1); White Blood Count 14.7 10^3/uL (4.0-10.0)
[2023-02-11 05:42] VITALS: BP 164/87; PULSE 87; RESP 20; O2SAT 97
[2023-02-11 06:07] LABS: INR 1.06 (0.8-1.2)
[2023-02-11 06:12] LABS: Alanine Aminotransferase 11 U/L (0-33); Albumin Level 4.3 g/dL (3.5-5.2); Alkaline Phosphatase 161 U/L (35-105); Anion Gap 15.3 (5-19); Aspartate Amino Transferase 14 U/L (0-32); Blood Urea Nitrogen 37 mg/dL (8-23); Calcium 9.5 mg/dL (8.5-10.5); Carbon Dioxide 28 mmol/L (22-29); Chloride 93 mmol/L (98-107); Globulin 3.6 g/dL (1.3-4.6); Glomerular Filtration Rate 83.2 mL/min (90-130); Glucose 167 mg/dL (65-115); Osmolality Calculated 286 mOsm/kg (285-295); Potassium 4.3 mmol/L (3.5-5.1); Sodium 132 mmol/L (136-145); Total Bilirubin 0.4 mg/dL (0.15-1.2); Total Protein 7.9 g/dL (6.6-8.7)
--- NOTE | 2023-02-11 06:17 | ED_ITS ---
Documented by User: Rishabh Mccarthy DO 02/12/23 13:30 HPI - Epistaxis General: Chief complaint: Epistaxis Stated complaint: Coughing up Blood Time Seen by Provider: 02/11/23 05:03 History of Present Illness: 67-year-old female seen earlier this morning by me. She presents after coughing up some clot at home following treatment for epistaxis here. She also vomited blood once at home. She states that she continues to trickle blood out of the right side of her nose, and is constantly dabbing her nose. The clot that she coughed up was concerning at home, so she re-presents. Associated symptoms: Reports vomiting; Deny fever(s) Review of Systems Const: Denies: fever(s) Eyes: Denies: change in vision ENMT: Reports: epistaxis; Denies: throat pain Card: Denies: chest pain Resp: Reports: productive cough; Denies: dyspnea GI: Reports: nausea, vomiting and hematemesis; Denies: abdominal pain PFS ED PFSH: Medical History Arthritis COPD (chronic obstructive pulmonary disease) Enrolled in chronic care management Essential hypertension Hyperglycemia without ketosis Non-small cell lung cancer Family History Father , heart attack No problems noted. Mother , PE No problems noted. Sister , heart attack No problems noted. Social History Smoking and tobacco status: former smoker Quit status (tobacco): has quit using tobacco Year quit tobacco: 2017 Physical Exam Const: COMMON NORMALS: no acute distress GENERAL APPEARANCE: cooperative; not ill appearing NUTRITIONAL APPEARANCE: obese HENMT: COMMON NORMALS: normocephalic, atraumatic and Normal external nose present HEAD & SCALP: normocephalic and atraumatic FACE & SINUS: face symmetric NOSE: Normal external nose present; no Epistaxis present (no active bleeding currently) Eye: COMMON NORMALS: Equal, round and reactive pupils present and EOMs intact bilaterally PUPIL: Yes Equal, round and reactive pupils present Neck/C-Spine: GENERAL: Yes trachea midline Resp: COMMON NORMALS: normal respiratory effort and No use of accessory muscles Course Vital Signs: Vital signs: Vital Signs Temperature 97.8 F 02/11/23 04:53 Pulse Rate 93 02/11/23 06:26 Respiratory Rate 22 H 02/11/23 06:26 Blood Pressure 159/94 02/11/23 06:26 Pulse Oximetry 98 02/11/23 06:26 Oxygen Delivery Me thod Nasal Cannula 02/11/23 06:26 Oxygen Flow Rate 3 02/11/23 06:26 MDM - Epistaxis Medical Decision Making Patient checked out to Dr. Flower at shift change, whom has examined the patient as well as interviewed her. She is pending laboratory findings. So far, no significant bleeding has been noted from the nose. Lab Data 02/11/23 05:35 02/11/23 05:35 Laboratory Results WBC 14.7 10^3/uL (4.0-10.0) H 02/11/23 05:35 RBC 3.93 10^6/uL (4.1-5.3) L 02/11/23 05:35 Hgb 10.8 g/dL (11.5-15.3) L 02/11/23 05:35 Hct 35.2 % (37.0-47.0) L 02/11/23 05:35 MCV 89.6 fl (81-99) 02/11/23 05:35 MCH 27.5 pg (28.0-34.0) L 02/11/23 05:35 MCHC 30.7 g/dL (30.0-36.0) 02/11/23 05:35 RDW 14.2 % (12.1-15.1) 02/11/23 05:35 Plt Count 278 10^3/cmm (130-400) 02/11/23 05:35 MPV 10.4 fL (7.4-10.4) 02/11/23 05:35 Neut % (Auto) 67.0 % 02/11/23 05:35 Lymph % (Auto) 23.3 % 02/11/23 05:35 Sullivan % (Auto) 8.2 % 02/11/23 05:35 Eos % (Auto) 0.6 % 02/11/23 05:35 Baso % (Auto) 0.4 % 02/11/23 05:35 Neut # (Auto) 9.85 10^3/uL (1.8-7.7) H 02/11/23 05:35 Lymph # (Auto) 3.4 10^3/uL (0.8-4.8) 02/11/23 05:35 Sullivan # (Auto) 1.2 10^3/uL (0.2-0.9) H 02/11/23 05:35 Eos # (Auto) 0.1 10^3/uL (0.0-0.8) 02/11/23 05:35 Baso # (Auto) 0.1 10^3/uL (0.0-0.1) 02/11/23 05:35 Nucleated RBC % (auto) 0 % 02/11/23 05:35 Nucleated RBCs # 0.0 /100WBC 02/11/23 05:35 PT 14.10 SECONDS (12.1-14.9) 02/11/23 05:35 INR 1.06 (0.8-1.2) 02/11/23 05:35 APTT 36.0 SECONDS (23.9-36.7) 02/11/23 05:35 Sodium 132 mmol/L (136-145) L 02/11/23 05:35 Potassium 4.3 mmol/L (3.5-5.1) 02/11/23 05:35 Chloride 93 mmol/L (98-107) L 02/11/23 05:35 Carbon Dioxide 28 mmol/L (22-29) 02/11/23 05:35 Anion Gap 15.3 (5-19) 02/11/23 05:35 BUN 37 mg/dL (8-23) H 02/11/23 05:35 Creatinine 0.7 mg/dL (0.5-0.9) 02/11/23 05:35 GFR Calculation 83.2 mL/min (90-130) L 02/11/23 05:35 Glucose 167 mg/dL (65-115) H 02/11/23 05:35 Calculated Osmolality 286 mOsm/kg (285-295) 02/11/23 05:35 Calcium 9.5 mg/dL (8.5-10.5) 02/11/23 05:35 Total Bilirubin 0.4 mg/dL (0.15-1.2) 02/11/23 05:35 AST 14 U/L (0-32) 02/11/23 05:35 ALT 11 U/L (0-33) 02/11/23 05:35 Alkaline Phosphatase 161 U/L (35-105) H 02/11/23 05:35 Total Protein 7.9 g/dL (6.6-8.7) 02/11/23 05:35 Albumin 4.3 g/dL (3.5-5.2) 02/11/23 05:35 Globulin 3.6 g/dL (1.3-4.6) 02/11/23 05:35 Discharge Plan Discharge Patient Disposition: Home Clinical Impression: History of epistaxis, Vomiting blood, Skin infection Condition: Stable Prescriptions: New ondansetron 4 mg tablet,disintegrating 4 mg PO Q8H PRN (Reason: nausea and vomiting) Qty: 15 0RF No Action aspirin [Adult Aspirin Regimen] 81 mg tablet,delayed release (DR/EC) 81 mg PO DAILY Jardiance 10 mg tablet 10 mg PO DAILY metoprolol tartrate 100 mg tablet 100 mg PO DAILY furosemide 40 mg tablet 40 mg PO DAILY spironolactone 25 mg tablet 25 mg PO DAILY pantoprazole 40 mg tablet,delayed release (DR/EC) 40 mg PO DAILY lisinopril 10 mg tablet 10 mg PO DAILY clopidogrel 75 mg tablet 75 mg PO DAILY atorvastatin 40 mg tablet 40 mg PO DAILY (DME) oxygen See Rx Instructions .Route .MEDSUPPLY Qty: 1 0RF Rx Instructions: As directed at HS oxycodone-acetaminophen [Percocet] 5-325 mg tablet 1 tab PO .Q4-6H PRN (Reason: pain) 30 Days Qty: 60 0RF mupirocin 2 % ointment 1 applic topical BID Qty: 15 0RF Rx Instructions: Apply to nares twice daily for the next 7 days Discharge Orders: Discharge ED (Routine); Ordered 02/11/23 Ordered By: Glenn Flower Referrals: Brain Wright DO [Primary Care Provider] - Discharge Diet: Usual diet Discharge Activity: Limit activity as instructed Patient Instructions: Cellulitis (ED), Nosebleed (ED), Hematemesis (ED) Activity Restrictions/Additional Instructions: Thank you for visiting the emergency department. You were seen and evaluated for vomiting blood. The most likely cause of your vomiting blood is related to recently swallowed blood from your nosebleed which continues to be controlled. Please follow all previously given precautions and instructions regarding your nosebleed. Please follow-up with your primary care provider. Return to the emergency department for recurrent bleeding that cannot be controlled with previous instructions, abdominal pain, chest pain, shortness of breath, fainting, or anything else that you are concerned about and feel needs emergency department evaluation. Sign Out Sign Out Data: Patient Sign Out occurred on 02/11/23 at 06:40. Patient's care was discussed, and care was transferred from to Glenn Flower MD. Coding Level of Care Code ED Director Critical Care for Chg Fwd Documented by User: Glenn Flower MD 02/21/23 01:21 HPI - Epistaxis General: Chief complaint: Epistaxis Stated complaint: Coughing up Blood Time Seen by Provider: 02/11/23 05:03 [facility] ED PFSH: Medical History Arthritis COPD (chronic obstructive pulmonary disease) Enrolled in chronic care management Essential hypertension Hyperglycemia without ketosis Non-small cell lung cancer Family History Father , heart attack No problems noted. Mother , PE No problems noted. Sister , heart attack No problems noted. Social History Smoking and tobacco status: former smoker Quit status (tobacco): has quit using tobacco Year quit tobacco: 2017 Course Vital Signs: Vital signs: Vital Signs Temperature 97.8 F 02/11/23 04:53 Pulse Rate 93 02/11/23 06:26 Respiratory Rate 22 H 02/11/23 06:26 Blood Pressure 159/94 02/11/23 06:26 Pulse Oximetry 98 02/11/23 06:26 Oxygen Delivery Me thod Nasal Cannula 02/11/23 06:26 Oxygen Flow Rate 3 02/11/23 06:26 MDM - Epistaxis Medical Decision Making Patient checked out to Dr. Flower at shift change, whom has examined the patient as well as interviewed her. She is pending laboratory findings. So far, no significant bleeding has been noted from the nose. Patient care handoff received from Dr. Mccarthy pending completion of ED evaluation. I personally saw and evaluated the patient. I reperformed dupont portions of E/M. Patient presented primarily due to concern over hematemesis. She denies history of GI bleeds and has not had abdominal pain. Almost certainly given recent clinical history this was secondary to adjust blood. No active bleeding noted on reexamination of the nose. Essentially expected findings with regards to laboratory studies, perhaps mild dehydration though patient can adequately orally rehydrate. Patient additionally endorsed concerned about recently draini ng skin finding on the right rib region. This was examined with ultrasound at bedside which only revealed very small residual fluid collection and I can continue to express small amounts of fluid through a previously developed drainage tract reportedly starting yesterday. Plan to do antibiotics. The results of ED evaluation were discussed with the patient including prescriptions and/or symptomatic cares (if applicable) including appropriate and responsible use, followup plan, and return precautions. The patient verbalized understanding and felt safe for discharge. Glenn Flower MD Emergency Medicine Lab Data 02/11/23 05:35 02/11/23 05:35 Laboratory Results WBC 14.7 10^3/uL (4.0-10.0) H 02/11/23 05:35 RBC 3.93 10^6/uL (4.1-5.3) L 02/11/23 05:35 Hgb 10.8 g/dL (11.5-15.3) L 02/11/23 05:35 Hct 35.2 % (37.0-47.0) L 02/11/23 05:35 MCV 89.6 fl (81-99) 02/11/23 05:35 MCH 27.5 pg (28.0-34.0) L 02/11/23 05:35 MCHC 30.7 g/dL (30.0-36.0) 02/11/23 05:35 RDW 14.2 % (12.1-15.1) 02/11/23 05:35 Plt Count 278 10^3/cmm (130-400) 02/11/23 05:35 MPV 10.4 fL (7.4-10.4) 02/11/23 05:35 Neut % (Auto) 67.0 % 02/11/23 05:35 Lymph % (Auto) 23.3 % 02/11/23 05:35 Sullivan % (Auto) 8.2 % 02/11/23 05:35 Eos % (Auto) 0.6 % 02/11/23 05:35 Baso % (Auto) 0.4 % 02/11/23 05:35 Neut # (Auto) 9.85 10^3/uL (1.8-7.7) H 02/11/23 05:35 Lymph # (Auto) 3.4 10^3/uL (0.8-4.8) 02/11/23 05:35 Sullivan # (Auto) 1.2 10^3/uL (0.2-0.9) H 02/11/23 05:35 Eos # (Auto) 0.1 10^3/uL (0.0-0.8) 02/11/23 05:35 Baso # (Auto) 0.1 10^3/uL (0.0-0.1) 02/11/23 05:35 Nucleated RBC % (auto) 0 % 02/11/23 05:35 Nucleated RBCs # 0.0 /100WBC 02/11/23 05:35 PT 14.10 SECONDS (12.1-14.9) 02/11/23 05:35 INR 1.06 (0.8-1.2) 02/11/23 05:35 APTT 36.0 SECONDS (23.9-36.7) 02/11/23 05:35 Sodium 132 mmol/L (136-145) L 02/11/23 05:35 Potassium 4.3 mmol/L (3.5-5.1) 02/11/23 05:35 Chloride 93 mmol/L (98-107) L 02/11/23 05:35 Carbon Dioxide 28 mmol/L (22-29) 02/11/23 05:35 Anion Gap 15.3 (5-19) 02/11/23 05:35 BUN 37 mg/dL (8-23) H 02/11/23 05:35 Creatinine 0.7 mg/dL (0.5-0.9) 02/11/23 05:35 GFR Calculation 83.2 mL/min (90-130) L 02/11/23 05:35 Glucose 167 mg/dL (65-115) H 02/11/23 05:35 Calculated Osmolality 286 mOsm/kg (285-295) 02/11/23 05:35 Calcium 9.5 mg/dL (8.5-10.5) 02/11/23 05:35 Total Bilirubin 0.4 mg/dL (0.15-1.2) 02/11/23 05:35 AST 14 U/L (0-32) 02/11/23 05:35 ALT 11 U/L (0-33) 02/11/23 05:35 Alkaline Phosphatase 161 U/L (35-105) H 02/11/23 05:35 Total Protein 7.9 g/dL (6.6-8.7) 02/11/23 05:35 Albumin 4.3 g/dL (3.5-5.2) 02/11/23 05:35 Globulin 3.6 g/dL (1.3-4.6) 02/11/23 05:35 Discharge Plan Discharge Patient Disposition: Home Clinical Impression: History of epistaxis, Vomiting blood, Skin infection Condition: Stable Prescriptions: New ondansetron 4 mg tablet,disintegrating 4 mg PO Q8H PRN (Reason: nausea and vomiting) Qty: 15 0RF No Action aspirin [Adult Aspirin Regimen] 81 mg tablet,delayed release (DR/EC) 81 mg PO DAILY Jardiance 10 mg tablet 10 mg PO DAILY metoprolol tartrate 100 mg tablet 100 mg PO DAILY furosemide 40 mg tablet 40 mg PO DAILY spironolactone 25 mg tablet 25 mg PO DAILY pantoprazole 40 mg tablet,delayed release (DR/EC) 40 mg PO DAILY lisinopril 10 mg tablet 10 mg PO DAILY clopidogrel 75 mg tablet 75 mg PO DAILY atorvastatin 40 mg tablet 40 mg PO DAILY (DME) oxygen See Rx Instructions .Route .MEDSUPPLY Qty: 1 0RF Rx Instructions: As directed at HS oxycodone-acetaminophen [Percocet] 5-325 mg tablet 1 tab PO .Q4-6H PRN (Reason: pain) 30 Days Qty: 60 0RF mupirocin 2 % ointment 1 applic topical BID Qty: 15 0RF Rx Instructions: Apply to nares twice daily for the next 7 days Discharge Orders: Discharge ED (Routine); Ordered 02/11/23 Ordered By: Glenn Flower Referrals: Brain Wright, DO [Primary Care Provider] - Discharge Diet: Usual diet Discharge Activity: Limit activity as instructed Patient Instructions: Cellulitis (ED), Nosebleed (ED), Hematemesis (ED) Activity Restrictions/Additional Instructions: Thank you for visiting the emergency department. You were seen and evaluated for vomiting blood. The most likely cause of your vomiting blood is related to recently swallowed blood from your nosebleed which continues to be controlled. Please follow all previously given precautions and instructions regarding your nosebleed. Please follow-up with your primary care provider. Return to the emergency department for recurrent bleeding that cannot be controlled with previous instructions, abdominal pain, chest pain, shortness of breath, fainting, or anything else that you are concerned about and feel needs emergency department evaluation. Sign Out Sign Out Data: Patient Sign Out occurred on 02/11/23 at 06:40. Patient's care was discussed, and care was transferred from to Glenn Flower MD. Coding Level of Care Code ED Director Critical Care for Alex Ingram
[2023-02-11 06:26] VITALS: BP 159/94; PULSE 93; RESP 22; O2SAT 98
== END 2023-02-11 07:16 | disposition home or self-care (01) ==
PROVIDERS: Emergency Medicine; Emergency Provider Emergency Medicine; PCP Family Medicine
DX: R04.0 Epistaxis (principal); K92.0 Hematemesis; L08.9 Local infection of the skin and subcutaneous tissue, unspecified; Z79.82 Long term (current) use of aspirin; Z79.02 Long term (current) use of antithrombotics/antiplatelets; J44.9 Chronic obstructive pulmonary disease, unspecified; I10 Essential (primary) hypertension; Z85.118 Personal history of other malignant neoplasm of bronchus and lung; Z87.891 Personal history of nicotine dependence
CPT/HCPCS: 80053; 85025; 85610; 85730; 93005; 99284

== ENCOUNTER 2023-04-24 05:39 | Outpatient (CLI) | payer MEDICARE, MEDICAID, SELFPAY ==
--- NOTE | 2023-04-22 08:08 | PETR_ITS ---
PROCEDURE INFORMATION: Exam: PET/CT Skull Base to Mid-thigh Exam date and time: 04/22/2023 9:16 AM Age: 68 years old Clinical indication: Condition or disease; Primary cancer: Lung cancer, right; Follow-up oncological assessment; Additional info: Assess disease status, shaquille LABS AND CLINICAL REPORTS: Glucose: 130 mg/dl Treatment strategy for malignancy (PET staging): Restaging (PS) TECHNIQUE: Imaging protocol: Following at least four-hour fasting and following the injection of radiopharmaceutical, low dose CT images were obtained. Then, PET images were obtained. Attenuation corrected images were constructed using the CT scan. Fused images of PET and CT were reviewed. The standardized uptake values (SUV) reported below are maximum values within a region of interest, expressed in gm/ml. Exam includes orbital meatal line to mid-thigh. Radiopharmaceutical: 13.63 mCi F-18 FDG (Fluorodeoxyglucose), IV. Time of imaging post radiopharmaceutical administration: 1 hour Injection site: Left hand COMPARISON: CT kidney stone [id number] 12/06/2020 12:46 AM, CT chest 12/06/2020 FINDINGS: Limitations: Motion artifact. Brain: Visualized brain has normal physiologic uptake. Pharynx: No abnormal uptake. Larynx: No abnormal uptake. Thyroid: A non radiotracer avid low-density right thyroid nodule measures 1.6 cm in greatest axial dimension compatible with a benign finding. Lungs, pleura and trachea: A cavitary mass adjacent to the pleural surface in the right lower lobe is noted measuring approximately 5.4 x 5.8 cm in the axial plane on series 3, image 61, SUV max 3.9. This is increased in size compared with 12/06/2020 where it measured approximately 3.5 x 2.4 cm in the axial plane. New solid smaller bilateral pulmonary nodules are noted compared with the prior CT. There is a non radiotracer avid noncalcified solid left upper lobe 5 mm nodule on series 3, image 54. A solid noncalcified right middle lobe nodule measuring 9 mm is present on series 3, image 59. Additional scattered smaller bilateral solid pulmonary nodules are noted without uptake. Assessment is slightly limited by respiratory motion artifact. Heart: Mitral annular calcification is noted. No abnormal uptake. Mediastinal space: No abnormal uptake. Liver: No abnormal uptake. Gallbladder and bile ducts: No abnormal uptake. Pancreas: No abnormal uptake. Spleen: No abnormal uptake. Adrenal glands: No abnormal uptake. Kidneys and ureters: Normal physiologic uptake. An exophytic slightly hyperdense 1 cm lesion arising from the posterior aspect of the right renal superior pole likely represents a hemorrhagic cyst, without elevated uptake. An exophytic non radiotracer avid rounded isodense structure arising from the lateral left kidney measuring up to 1 cm in axial plane on series 3, image 96 is present without elevated uptake. Nonobstructing left renal calculus. Stomach and bowel: No abnormal uptake. There are scattered colonic diverticula. Vasculature: No abnormal uptake. There are diffuse atherosclerotic changes including within the coronary arteries. Lymph nodes: There are moderately prominent mediastinal lymph nodes clustered in the pretracheal space within SUV max 3.7 on series 3, image 42 in a lymph node or cluster of lymph nodes measuring up to 2.6 x 1.7 cm on series 3, image 42. Mild uptake in the subcarinal space is noted, SUV max 3.9 without a well-defined lymph node. Bones/joints: There is severe right and mild left hip primary osteoarthritic changes. Mild to moderate degenerative vertebral body spondylosis is noted. Uptake within the osseous structures appears physiologic. Soft tissues: No abnormal uptake in the visualized head, neck, chest, abdomen, pelvis, and extremities. Non radiotracer avid lobulated calcification in the region of the left infraspinatus tendon is present compatible with calcific tendinitis. METRICS: Mediastinal blood pool: SUV max 2.1 [facility] [id number] IMPRESSION: 1. Increased size of a cavitary lesion in the posterior right lower lobe compared with 12/06/2020 with elevated uptake (SUV max 3.9). This may be indicative of malignancy as there is a provided history of lung cancer. Correlation with clinical history is recommended. If there is no biopsy proven cancer, the possibility of atypical infectious involvement is an additional consideration. 2. Interval development of bilateral small solid nodules. Although lack of uptake in these nodules favors a benign etiology, assessment of small nodules is limited by PET-CT and metastases cannot be excluded. 3. Moderate radiotracer avid mediastinal lymphadenopathy is new.This may related to malignancy or reactive lymphadenopathy associated with infectious or inflammatory involvement. 4. Non radiotracer avid bilateral renal lesions are present. Assessment of renal lesions is limited by PET-CT however these structures likely represent benign cysts. 5. Additional nonurgent findings as detailed above.
== END 2023-04-24 05:40 | disposition home or self-care (01) ==
LOC: RAD 05:40
PROVIDERS: Visit Provider Internal Medicine Hematology & Oncology
DX: C34.31 Malignant neoplasm of lower lobe, right bronchus or lung (principal); R91.8 Other nonspecific abnormal finding of lung field
CPT/HCPCS: 78815; A9552

== ENCOUNTER 2023-05-24 08:55 | Oncology outpatient (recurring) (ONCR) | payer MEDICARE, MEDICAID, SELFPAY ==
[2023-05-24 10:11] VITALS: BP 174/67; PULSE 65; RESP 18; TEMP 36.7; O2SAT 96
[2023-05-24 10:43] LABS: Basophils # 0.1 10^3/uL (0.0-0.1); Basophils % 0.7 %; Eosinophils # 0.3 10^3/uL (0.0-0.8); Eosinophils % 2.4 %; Hematocrit 34.3 % (36-47); Lymphocytes # 3.3 10^3/uL (0.8-4.8); Lymphocytes % 32.3 %; Mean Corpuscular HGB Conc 31.5 g/dL (30-55); Mean Corpuscular Hemoglobin 27.4 pg (27-33); Mean Corpuscular Volume 87.1 fl (85-98); Mean Platelet Volume 10.6 fL (7.4-10.4); Monocytes % 9.6 %; Neutrophils # 5.63 10^3/uL (1.8-7.7); Neutrophils % 54.6 %; Nucleated Red Blood Cells % 0 %; Platelet Count 236 10^3/cmm (157-399); Red Blood Count 3.94 10^6/uL (3.85-5.65); Red Cell Distribution Width 15.3 % (12.1-15.1); White Blood Count 10.31 10^3/uL (3.29-11.43)
[2023-05-24 11:05] LABS: Alanine Aminotransferase 8 U/L (0-33); Albumin Level 4.4 g/dL (3.5-5.2); Alkaline Phosphatase 145 U/L (35-105); Anion Gap 14.8 (5-19); Aspartate Amino Transferase 11 U/L (0-32); Blood Urea Nitrogen 22 mg/dL (8-23); Calcium 9.6 mg/dL (8.5-10.5); Carbon Dioxide 32 mmol/L (22-29); Chloride 98 mmol/L (98-107); Globulin 3.3 g/dL (1.3-4.6); Glomerular Filtration Rate 99.1 mL/min (90-130); Glucose 118 mg/dL (65-115); Osmolality Calculated 296 mOsm/kg (285-295); Potassium 3.8 mmol/L (3.5-5.1); Sodium 141 mmol/L (136-145); Total Bilirubin 0.3 mg/dL (0.15-1.2); Total Protein 7.7 g/dL (6.6-8.7)
[2023-05-24 12:14] LABS: Miscellaneous Test See Scanned Lab Rpt
== END 2023-05-27 23:59 | disposition home or self-care (01) ==
PROVIDERS: Visit Provider Internal Medicine Medical Oncology
DX: C34.90 Malignant neoplasm of unspecified part of unspecified bronchus or lung (principal); J44.9 Chronic obstructive pulmonary disease, unspecified; E11.9 Type 2 diabetes mellitus without complications; Z79.899 Other long term (current) drug therapy
CPT/HCPCS: 36415; 80053; 85025; 99215

== ENCOUNTER 2023-06-21 09:48 | Oncology outpatient (recurring) (ONCR) | payer MEDICARE, MEDICAID, SELFPAY | END 2023-06-27 23:59 | disposition home or self-care (01) | LOC: ONCMED 09:49 | PROVIDERS: Visit Provider Internal Medicine Medical Oncology | DX: Z53.9 Procedure and treatment not carried out, unspecified reason (principal) ==

== ENCOUNTER 2023-07-12 12:00 | Oncology outpatient (recurring) (ONCR) | payer MEDICARE, MEDICAID, SELFPAY ==
[2023-07-12 12:24] VITALS: BP 134/81; PULSE 61; RESP 17; TEMP 36.9; O2SAT 98
[2023-07-12 13:19] LABS: Basophils # 0.1 10^3/uL (0.0-0.1); Basophils % 0.5 %; Eosinophils # 0.2 10^3/uL (0.0-0.8); Eosinophils % 1.4 %; Lymphocytes # 2.8 10^3/uL (0.8-4.8); Lymphocytes % 21.6 %; Mean Corpuscular HGB Conc 30.5 g/dL (30-55); Mean Corpuscular Hemoglobin 27.4 pg (27-33); Mean Corpuscular Volume 89.8 fl (85-98); Mean Platelet Volume 10.5 fL (7.4-10.4); Monocytes # 1.1 10^3/uL (0.2-0.9); Monocytes % 8.2 %; Neutrophils # 8.72 10^3/uL (1.8-7.7); Neutrophils % 67.8 %; Nucleated Red Blood Cells % 0 %; Platelet Count 275 10^3/cmm (157-399); Red Blood Count 4.12 10^6/uL (3.85-5.65); Red Cell Distribution Width 15.2 % (12.1-15.1); White Blood Count 12.85 10^3/uL (3.29-11.43)
[2023-07-12 13:32] LABS: Alanine Aminotransferase 8 U/L (0-33); Albumin Level 4.2 g/dL (3.5-5.2); Alkaline Phosphatase 170 U/L (35-105); Anion Gap 13.3 (5-19); Aspartate Amino Transferase 13 U/L (0-32); Blood Urea Nitrogen 18 mg/dL (8-23); Calcium 9.6 mg/dL (8.5-10.5); Carbon Dioxide 34 mmol/L (22-29); Chloride 96 mmol/L (98-107); Ferritin 167 ng/mL (15-150); Globulin 3.7 g/dL (1.3-4.6); Glucose 154 mg/dL (65-115); Iron 41 ug/dL (37-145); Osmolality Calculated 293 mOsm/kg (285-295); Percent Saturation 14.1 % (20-50); Potassium 4.3 mmol/L (3.5-5.1); Sodium 139 mmol/L (136-145); Total Bilirubin 0.6 mg/dL (0.15-1.2); Total Iron Binding Capacity 289 mcg/dl; Total Protein 7.9 g/dL (6.6-8.7); Unsaturated Iron Binding 248 ug/dL (112-347)
[2023-07-12 13:48] LABS: Vitamin B12 325 pg/mL (232-1245)
[2023-07-14 17:49] LABS: Soluble Transferrin Receptor 1.33 mg/L (0.76-1.76)
[2023-07-16 03:19] LABS: Methylmalonic Acid 274 nmol/L (87-318)
== END 2023-07-27 23:59 | disposition home or self-care (01) ==
LOC: ONCMED 12:01
PROVIDERS: PCP Family Medicine; Visit Provider Internal Medicine
DX: C34.90 Malignant neoplasm of unspecified part of unspecified bronchus or lung (principal); M25.561 Pain in right knee; M25.562 Pain in left knee; Z79.899 Other long term (current) drug therapy; Z87.891 Personal history of nicotine dependence
CPT/HCPCS: 36415; 80053; 82607; 82728; 82746; 83540; 83550; 83921; 84238; 85025; 99215

== ENCOUNTER 2023-08-03 17:50 | Emergency (ER) | payer MEDICARE, MEDICAID, SELFPAY ==
--- NOTE | 2023-08-03 17:51 | ECG_ITS ---
[facility] Test Date: 2023-08-03 Pat Name: Katie Eddy Department: Room: Gender: Female Optical Assistant: : 1955 Requested By: Stan Kaplan Order Number: [id number] Lewis MD: Sury Trejo M.D. Measurements Intervals [place] Rate: 65 P: 49 SD: 168 QRS: 19 QRSD: 93 T: 69 QT: 424 QTc: 441 Interpretive Statements SINUS RHYTHM LOW QRS VOLTAGE IN PRECORDIAL LEADS [QRS DEFLECTION < 1.0 mV IN CHEST LEADS] Compared to ECG 02/11/2023 05:51:29 Low QRS voltage now present Ventricular premature complex(es) no longer present T-wave abnormality no longer present Electronically Signed On 08-04-2023 15:57:59 COMMODITY TRADER by Sury Trejo M.D. [id number]
--- NOTE | 2023-08-03 17:51 | XRR_ITS ---
PROCEDURE INFORMATION: Exam: XR Chest Exam date and time: 08/03/2023 6:05 PM Age: 68 years old Clinical indication: Cough and dyspnea; Additional info: Dyspnea/cough TECHNIQUE: Imaging protocol: Radiologic exam of the chest. Views: 1 view. COMPARISON: CR XR chest 1V portable [id number] 07/17/2021 5:46 AM FINDINGS: Lungs: Right mid to lower lung field airspace infiltrate along with left lower lobe minimal atelectasis versus early infiltrate. Pleural spaces: Unremarkable. No pleural effusion. No pneumothorax. Heart/Mediastinum: Cardiomegaly. Bones/joints: Unremarkable. XR/XR chest 1V portable [id number] IMPRESSION: 1. Right mid to lower lung field airspace infiltrate along with left lower lobe minimal atelectasis versus early infiltrate. 2. Cardiomegaly.
--- NOTE | 2023-08-03 17:53 | ED_ITS ---
HPI - General Adult General: Stated complaint: resp/ HTN Time Seen by Provider: 08/03/23 17:51 Source: patient Mode of arrival: ambulatory History of Present Illness: Onset (ago): hour(s) Severity: mild Quality: burning Pain Consistency: constant Relieving factors: none Exacerbating factors: none Associated symptoms: Deny chest pain, confusion, cough, diaphoresis, decreased appetite, dyspnea, fevers/chills, headache(s), malaise, nausea, rash, palpitations, seizures, short of breath, syncope, vomiting or weakness Treatments prior to arrival: none Review of Systems Const: Denies: malaise or diaphoresis Card: Denies: chest pain, palpitations or syncope Resp: Denies: dyspnea GI: Denies: nausea or vomiting : Denies: dysuria, urinary frequency or urinary urgency Musc: Denies: neck pain or back pain Skin/Breast: Denies: rash Neuro: Denies: headache(s) or confusion PFSH ED PFSH: Medical History Arthritis COPD (chronic obstructive pulmonary disease) Enrolled in chronic care management Essential hypertension Hyperglycemia without ketosis Non-small cell lung cancer Family History Father , heart attack No problems noted. Mother , PE No problems noted. Sister , heart attack No problems noted. Social History Smoking and tobacco/nicotine status: former use of tobacco/nicotine Quit status (tobacco/nicotine): has quit using Year quit tobacco: 2017 Former quit date comment: 40 years Alcohol intake: never Physical Exam Const: COMMON NORMALS: no acute distress GENERAL APPEARANCE: cooperative and comfortable ORIENTATION/CONSCIOUSNESS: Yes awake, Yes oriented to person, Yes oriented to place and Yes oriented to time HENMT: COMMON NORMALS: normocephalic, atraumatic and hearing grossly normal bilaterally HEAD & SCALP: normocephalic and atraumatic Resp: COMMON NORMALS: normal respiratory effort, No retractions, No use of accessory muscles and clear to auscultation bilaterally AUSCULTATION: clear to auscultation bilaterally Cardio: COMMON NORMALS: regular rate, regular rhythm and No murmurs present (Cardio) RATE: regular rate RHYTHM: regular rhythm GI: COMMON NORMALS: Soft to palpation and No hepatosplenomegaly present AUSCULTATION: Yes normoactive bowel sounds PALPATION: Yes Soft to palpation, No Tenderness to palpation present (GI), No Guarding due to palpation present (GI) and Yes No hepatosplenomegaly present Extremity: COMMON NORMALS: normal to inspection, capillary refill normal, no clubbing, cyanosis or edema, no calf tenderness and no pedal edema Neuro: SENSORIUM/ORIENTATION: Yes oriented to person, Yes oriented to place and Yes oriented to time Skin: COMMON NORMALS: no rashes or lesions noted GENERAL SKIN EXAM: no rashes or lesions noted Discharge Plan Discharge Prescriptions: No Action aspirin [Adult Aspirin Regimen] 81 mg tablet,delayed release (DR/EC) 81 mg PO DAILY Jardiance 10 mg tablet 10 mg PO DAILY metoprolol tartrate 100 mg tablet 100 mg PO DAILY furosemide 40 mg tablet 40 mg PO DAILY spironolactone 25 mg tablet 25 mg PO DAILY pantoprazole 40 mg tablet,delayed release (DR/EC) 40 mg PO DAILY lisinopril 10 mg tablet 10 mg PO DAILY clopidogrel 75 mg tablet 75 mg PO DAILY atorvastatin 40 mg tablet 40 mg PO DAILY oxycodone-acetaminophen [Percocet] 5-325 mg tablet 1 tab PO Q8H PRN (Reason: pain) 30 Days Qty: 90 0RF (DME) oxygen See Rx Instructions .Route .MEDSUPPLY Qty: 1 0RF Rx Instructions: As directed at HS lorazepam [Ativan] 0.5 mg tablet 0.5 mg PO ONCE Qty: 1 0RF Rx Instructions: Take prior to PET scan to help with anxiety mupirocin 2 % ointment 1 applic topical BID Qty: 15 0RF Rx Instructions: Apply to nares twice daily for the next 7 days ondansetron 4 mg tablet,disintegrating 4 mg PO Q8H PRN (Reason: nausea and vomiting) Qty: 15 0RF Coding Level of Care Code ED Branch Operations Specialist for Alex Ingram
[2023-08-03 18:00] VITALS: BP 216/107; PULSE 74; TEMP 37; O2SAT 93; BMI 37.8
--- NOTE | 2023-08-03 18:18 | ED_ITS ---
HPI - SOB/Dyspnea 2 General: Chief Complaint: Shortness of Breath/Dyspnea Stated Complaint: resp/ HTN Time Seen by Provider: 08/03/23 17:51 History of Present Illness: HPI Narrative: Patient presents to the ER from EMS with complaints of shortness of breath over the last 3 days. This has been progressive and worsening. Patient does wear oxygen at all times on 3 L per nasal cannula. When patient arrived she was on 3 L and her oxygen saturation was 93%. Patient's blood pressure is extremely elevated to 216/107. Patient states she did take her blood pressure medicines today. Patient denies any nausea vomiting fevers chills. Patient does have a history of diabetes, CHf, COPD. Patient states she did have pneumonia about 2 to 3 weeks ago she is on for sure if she totally got over it or this is similar. Patient has a history of smoking and non-small cell lung cancer. MD elicited complaint: shortness of breath Pertinent past history: COPD, congestive heart failure and diabetes Onset (ago): day(s) (3 days ago) Context: recent illness Review of Systems 2 General: Reports: 10 or more systems reviewed and unremarkable except in HPI and below PFSH ED 2 PFSH: Medical History Non-small cell lung cancer Enrolled in chronic care management COPD (chronic obstructive pulmonary disease) Essential hypertension Arthritis Hyperglycemia without ketosis Family History Father , heart attack No problems noted. Mother , PE No problems noted. Sister , heart attack No problems noted. Social History Smoking and tobacco/nicotine status: former use of tobacco/nicotine Quit status (tobacco/nicotine): has quit using Year quit tobacco: 2017 Former quit date comment: 40 years Alcohol intake: never Physical Exam 2 Const: COMMON NORMALS: no acute distress, average body habitus (Obese), patient oriented x3, no limitations, healthy appearing, alert and well nourished HENMT: COMMON NORMALS: normocephalic, atraumatic, hearing grossly normal bilaterally, external ears normal, Normal external nose present, moist oral mucous membranes and oropharynx normal HEAD & SCALP: normocephalic and atraumatic NOSE: Normal external nose present EXTERNAL EAR: Yes external ears normal Eye: COMMON NORMALS: Equal, round and reactive pupils present, EOMs intact bilaterally, conjunctivae normal and no scleral icterus CONJUNCTIVA: Yes conjunctivae normal PUPIL: Yes Equal, round and reactive pupils present Neck/C-Spine: COMMON NORMALS: no JVD Chest: COMMONS NORMALS: normal inspection of the chest and normal palpation of entire chest wall Resp: COMMON NORMALS: normal respiratory effort, No retractions, No use of accessory muscles and clear to auscultation bilaterally (Decreased breath sounds bilaterally) AUSCULTATION: clear to auscultation bilaterally (Decreased breath sounds bilaterally) Cardio: COMMON NORMALS: no JVD, regular rate, regular rhythm, S1 normal heart sound present, S2 normal heart sound present, No gallops present (Cardio), No clicks present (Cardio), No murmurs present (Cardio) and No rub (Cardio) R ATE: regular rate RHYTHM: regular rhythm HEART SOUNDS: S1 normal heart sound present and S2 normal heart sound present GI: COMMON NORMALS: Normal to inspection, nondistended, normoactive bowel sounds present, Soft to palpation, non-tender, No hepatosplenomegaly present and no masses PALPATION: Yes Soft to palpation and Yes No hepatosplenomegaly present : COMMON NORMALS: Yes no CVA tenderness BLADDER/KIDNEY EXAM: Yes no CVA tenderness Back/Pelvis: COMMON NORMALS: no CVA tenderness Neuro: COMMON NORMALS: patient oriented x3 SENSORIUM/ORIENTATION: Yes alert Course 2 Vital Signs: Vital signs: Vital Signs Temperature 98.6 F 08/03/23 18:00 Pulse Rate 74 08/03/23 18:00 Blood Pressure 216/107 08/03/23 18:00 Pulse Oximetry 93 08/03/23 18:00 Oxygen Delivery Me thod Nasal Cannula 08/03/23 18:00 Oxygen Flow Rate 3 08/03/23 18:00 MDM - SOB/Dyspnea Medical Decision Making Presents to the ER with complaints of worsening shortness of breath over the last 3 days. Patient had pneumonia approximate month ago and is unsure if she truly got over it. Lab work was obtained which shows an elevated white count of 15.5 otherwise blood work is essentially unremarkable. Chest x-ray showed right mid to lower lobe airspace infiltrate Durning for atelectasis versus early infiltrate. Due to her elevated white count we will go ahead and treat her with antibiotics. Patient is currently on 3 L of oxygen which she wears at home. Patient wants to be discharged to go home. Patient will be placed on Levaquin p.o. after discharge. Differential Diagnosis Likely acute exacerbation of chronic obstructive airways disease, congestive heart failure and community acquired pneumonia; Unlikely asthma with exacerbation or pulmonary embolism Lab Data I reviewed the patient's lab results. 08/03/23 18:09 08/03/23 18:09 Labs/Radiology: Radiology Impressions Chest X-Ray 08/03/23 17:51 IMPRESSION: 1. Right mid to lower lung field airspace infiltrate along with left lower lobe minimal atelectasis versus early infiltrate. 2. Cardiomegaly. Laboratory Results WBC 15.51 10^3/uL (3.29-11.43) H 08/03/23 18:09 RBC 4.27 10^6/uL (3.85-5.65) 08/03/23 18:09 Hgb 12.00 g/dL (11.27-16.99) 08/03/23 18:09 Hct 38.4 % (36-47) 08/03/23 18:09 MCV 89.9 fl (85-98) 08/03/23 18:09 MCH 28.1 pg (27-33) 08/03/23 18:09 MCHC 31.3 g/dL (30-55) 08/03/23 18:09 RDW 15.1 % (12.1-15.1) 08/03/23 18:09 Plt Count 294 10^3/cmm (157-399) 08/03/23 18:09 MPV 10.4 fL (7.4-10.4) 08/03/23 18:09 Neut % (Auto) 72.8 % 08/03/23 18:09 Lymph % (Auto) 18.1 % 08/03/23 18:09 Scurry % (Auto) 6.3 % 08/03/23 18:09 Eos % (Auto) 1.7 % 08/03/23 18:09 Baso % (Auto) 0.5 % 08/03/23 18:09 Neut # (Auto) 11.31 10^3/uL (1.8-7.7) H 08/03/23 18:09 Lymph # (Auto) 2.8 10^3/uL (0.8-4.8) 08/03/23 18:09 Scurry # (Auto) 1.0 10^3/uL (0.2-0.9) H 08/03/23 18:09 Eos # (Auto) 0.3 10^3/uL (0.0-0.8) 08/03/23 18:09 Baso # (Auto) 0.1 10^3/uL (0.0-0.1) 08/03/23 18:09 Nucleated RBC % (auto) 0 % 08/03/23 18:09 Nucleated RBCs # 0.0 /100WBC 08/03/23 18:09 Sodium 139 mmol/L (136-145) 08/03/23 18:09 Potassium 4.2 mmol/L (3.5-5.1) 08/03/23 18:09 Chloride 100 mmol/L (98-107) 08/03/23 18:09 Carbon Dioxide 27 mmol/L (22-29) 08/03/23 18:09 Anion Gap 16.2 (5-19) 08/03/23 18:09 BUN 17 mg/dL (8-23) 08/03/23 18:09 Creatinine 0.6 mg/dL (0.5-0.9) 08/03/23 18:09 GFR Calculation 99.1 mL/min (90-130) 08/03/23 18:09 Glucose 140 mg/dL (65-115) H 08/03/23 18:09 Calculated Osmolality 292 mOsm/kg (285-295) 08/03/23 18:09 Lactic Acid 1.8 mmol/L (0.5-2.2) 08/03/23 18:06 Calcium 9.5 mg/dL (8.5-10.5) 08/03/23 18:09 Total Bilirubin 0.3 mg/dL (0.15-1.2) 08/03/23 18:09 AST 14 U/L (0-32) 08/03/23 18:09 ALT 9 U/L (0-33) 08/03/23 18:09 Alkaline Phosphatase 184 U/L (35-105) H 08/03/23 18:09 NT-Pro-B Natriuret Pep 910 pg/mL (0-125) H 08/03/23 18:06 Total Protein 8.1 g/dL (6.6-8.7) 08/03/23 18:09 Albumin 4.4 g/dL (3.5-5.2) 08/03/23 18:09 Globulin 3.7 g/dL (1.3-4.6) 08/03/23 18:09 Procalcitonin 0.19 ng/mL (0-0.5) 08/03/23 18:06 Urine Color Yellow (Yellow) 08/03/23 18:02 Urine Appearance Sl hazy (CLEAR) A 08/03/23 18:02 Urine pH 7 (5-7) 08/03/23 18:02 Ur Specific [place] 1.005 (1.005-1.030) 08/03/23 18:02 Urine Protein Neg (Negative) 08/03/23 18:02 Urine Glucose (UA) 4+ (Normal) H 08/03/23 18:02 Urine Ketones 1+ (Negative) H 08/03/23 18:02 Urine Blood 3+ (Negative) H 08/03/23 18:02 Urine Nitrate Negative (Negative) 08/03/23 18:02 Urine Bilirubin Neg (Negative) 08/03/23 18:02 Urine Urobilinogen Norm mg/dL (Negative) 08/03/23 18:02 Ur Leukocyte Esterase Trace (Negative) H 08/03/23 18:02 Urine RBC 5-10 /hpf (0-2) H 08/03/23 18:02 Urine WBC 0-4 /hpf (0-5) H 08/03/23 18:02 Ur Squamous Epith Cells 0-4 /hpf (0-5) H 08/03/23 18:02 Ur Transition Epith Cell 0-4 /hpf 08/03/23 18:02 Amorphous Sediment Not Reportable 08/03/23 18:02 Urine Bacteria None /hpf (NONE) 08/03/23 18:02 Urine Mucus None /hpf 08/03/23 18:02 All radiology interpretation(s) finalized by discharge EKG Data EKG 1: I personally reviewed and interpreted this EKG as follows: EKG interpretation time: 18:09 Prior EKG tracings: not available for review Interpretation: EKG shows ventricular rate 65 bpm, SC interval 168, QRS duration 93, QTc of 435, sinus rhythm, Discharge Plan Discharge Patient Disposition: Home Clinical Impression: Community acquired pneumonia Prescriptions: No Action aspirin [Adult Aspirin Regimen] 81 mg tablet,delayed release (DR/EC) 81 mg PO DAILY Jardiance 10 mg tablet 10 mg PO DAILY metoprolol tartrate 100 mg tablet 100 mg PO DAILY furosemide 40 mg tablet 40 mg PO DAILY spironolactone 25 mg tablet 25 mg PO DAILY pantoprazole 40 mg tablet,delayed release (DR/EC) 40 mg PO DAILY lisinopril 10 mg tablet 10 mg PO DAILY clopidogrel 75 mg tablet 75 mg PO DAILY atorvastatin 40 mg tablet 40 mg PO DAILY oxycodone-acetaminophen [Percocet] 5-325 mg tablet 1 tab PO Q8H PRN (Reason: pain) 30 Days Qty: 90 0RF (DME) oxygen See Rx Instructions .Route .MEDSUPPLY Qty: 1 0RF Rx Instructions: As directed at HS lorazepam [Ativan] 0.5 mg tablet 0.5 mg PO ONCE Qty: 1 0RF Rx Instructions: Take prior to PET scan to help with anxiety mupirocin 2 % ointment 1 applic topical BID Qty: 15 0RF Rx Instructions: Apply to nares twice daily for the next 7 days ondansetron 4 mg tablet,disintegrating 4 mg PO Q8H PRN (Reason: nausea and vomiting) Qty: 15 0RF Discharge Orders: Discharge ED (Routine); Ordered 08/03/23 Ordered By: Raman Austin Referrals: Raul Rodriguez MD [Primary Care Provider] - 1 week Patient Instructions: Community Acquired Pneumonia (DC) Activity Restrictions/Additional Instructions: Please take all your antibiotics as directed. Please follow-up with your family practice physician within 7 to 10 days for further evaluation and treatment as needed. If your symptoms worsen please feel free to return to the ER. Coding Level of Care Code ED Tilesetter for Alex Ingram
[2023-08-03 18:31] LABS: Basophils # 0.1 10^3/uL (0.0-0.1); Basophils % 0.5 %; Eosinophils # 0.3 10^3/uL (0.0-0.8); Eosinophils % 1.7 %; Hematocrit 38.4 % (36-47); Lymphocytes # 2.8 10^3/uL (0.8-4.8); Lymphocytes % 18.1 %; Mean Corpuscular HGB Conc 31.3 g/dL (30-55); Mean Corpuscular Hemoglobin 28.1 pg (27-33); Mean Corpuscular Volume 89.9 fl (85-98); Mean Platelet Volume 10.4 fL (7.4-10.4); Monocytes % 6.3 %; Neutrophils # 11.31 10^3/uL (1.8-7.7); Neutrophils % 72.8 %; Nucleated Red Blood Cells % 0 %; Platelet Count 294 10^3/cmm (157-399); Red Blood Count 4.27 10^6/uL (3.85-5.65); Red Cell Distribution Width 15.1 % (12.1-15.1); White Blood Count 15.51 10^3/uL (3.29-11.43)
[2023-08-03 18:35] LABS: Glucose Urine UA 4+ (Normal); Protein Urine Neg (Negative); Specific Gravity, Urine 1.005 (1.005-1.030); Urine Appearance SL Hazy (CLEAR); Urine Color Yellow (Yellow); pH Urine 7 (5-7)
[2023-08-03 18:36] LABS: Add Urine Microscopic? YES; Bilirubin Urine Neg (Negative); Blood Urine 3+ (Negative); Ketones Urine 1+ (Negative); Leukocyte Esterase Urine Trace (Negative); Nitrate Urine Negative (Negative); Urobilinogen Urine Norm (Negative)
[2023-08-03 18:38] LABS: Add Urine Culture? No; Squamous Epithelial Cell Urine 0-4 /hpf (0-5); Transitional Epi Cells Urine 0-4 /hpf; WBC Urine 0-4 /hpf (0-5)
[2023-08-03 18:38] LABS: Lactic Sepsis W/Reflex 1.8 mmol/L (0.5-2.2)
[2023-08-03 18:48] LABS: Alanine Aminotransferase 9 U/L (0-33); Albumin Level 4.4 g/dL (3.5-5.2); Alkaline Phosphatase 184 U/L (35-105); Anion Gap 16.2 (5-19); Aspartate Amino Transferase 14 U/L (0-32); Blood Urea Nitrogen 17 mg/dL (8-23); Calcium 9.5 mg/dL (8.5-10.5); Carbon Dioxide 27 mmol/L (22-29); Chloride 100 mmol/L (98-107); Creatinine Clr Calc Pharmacy 76.2086; Globulin 3.7 g/dL (1.3-4.6); Glomerular Filtration Rate 99.1 mL/min (90-130); Glucose 140 mg/dL (65-115); Osmolality Calculated 292 mOsm/kg (285-295); Potassium 4.2 mmol/L (3.5-5.1); Sodium 139 mmol/L (136-145); Total Bilirubin 0.3 mg/dL (0.15-1.2); Total Protein 8.1 g/dL (6.6-8.7)
[2023-08-03 18:59] LABS: NT Pro B Type Natriuretic Pept 910 pg/mL (0-125); Procalcitonin 0.19 ng/mL (0-0.5)
[2023-08-03] MEDS: cefTRIAXone 1,000 MG in sodium chloride 0.9% (plus) 50 ML 100 MG IV (20:06)
[2023-08-03 20:44] VITALS: PULSE 80; RESP 20; O2SAT 93
== END 2023-08-03 20:46 | disposition home or self-care (01) ==
PROVIDERS: Family Medicine; Emergency Provider Emergency Medicine; PCP Family Medicine
DX: J44.0 Chronic obstructive pulmonary disease with (acute) lower respiratory infection (principal); J18.9 Pneumonia, unspecified organism; Z79.02 Long term (current) use of antithrombotics/antiplatelets; Z79.82 Long term (current) use of aspirin; I51.7 Cardiomegaly; Z85.118 Personal history of other malignant neoplasm of bronchus and lung; I10 Essential (primary) hypertension; Z87.891 Personal history of nicotine dependence; Z99.81 Dependence on supplemental oxygen
CPT/HCPCS: 71045; 80053; 81001; 83605; 83880; 84145; 85025; 93005; 96365; 99285; J0696

== ENCOUNTER 2023-09-27 15:33 | Emergency (ER) | payer MEDICARE, MEDICAID, SELFPAY ==
[2023-09-27 15:37] VITALS: BP 181/93; PULSE 77; RESP 18; TEMP 36.8; O2SAT 92; BMI 43.2
--- NOTE | 2023-09-27 15:42 | ED_ITS ---
HPI - Epistaxis General: Chief complaint: Epistaxis Stated complaint: nose bleed Time Seen by Provider: 09/27/23 15:41 Source: patient Mode of arrival: EMS History of Present Illness: 68-year-old female presents emergency ro om with epistaxis began 30 minutes prior to arrival before she arrived via EMS the epistaxis had ceased. She is on aspirin and clopidogrel. No recent trauma. She does wear oxygen on at times she will use the medication. No active bleeding at this time. MD complaint: epistaxis Location: bilateral nostril Onset (ago): minute(s) Context: aspirin use and other (Clopidogrel) Associated symptoms: Deny fever(s), headache(s), sinus pain, syncope, vomiting or weakness Treatment prior to arrival: nose pinching Review of Systems Const: Denies: fever(s) ENMT: Denies: sinus pain Card: Denies: syncope GI: Denies: vomiting Neuro: Denies: headache(s) PFS ED PFSH: Medical History Non-small cell lung cancer Enrolled in chronic care management COPD (chronic obstructive pulmonary disease) Essential hypertension Arthritis Hyperglycemia without ketosis Family History Father , heart attack No problems noted. Mother , PE No problems noted. Sister , heart attack No problems noted. Social History Smoking and tobacco/nicotine status: former use of tobacco/nicotine Quit status (tobacco/nicotine): has quit using Year quit tobacco: 2017 Former quit date comment: 40 years Alcohol intake: never Physical Exam 2 Const: COMMON NORMALS: no acute distress GENERAL APPEARANCE: cooperative and comfortable ORIENTATION/CONSCIOUSNESS: Yes awake, Yes oriented to person, Yes oriented to place and Yes oriented to time HENMT: COMMON NORMALS: normocephalic, atraumatic and hearing grossly normal bilaterally HEAD & SCALP: normocephalic and atraumatic OTHER: No active bleeding from the nares Neuro: SENSORIUM/ORIENTATION: Yes oriented to person, Yes oriented to place and Yes oriented to time Course Vital Signs: Vital signs: Vital Signs Temperature 98.3 F 09/27/23 15:37 Pulse Rate 77 09/27/23 15:37 Respiratory Rate 18 09/27/23 19:22 Blood Pressure 181/93 09/27/23 15:37 Pulse Oximetry 96 09/27/23 19:22 Oxygen Delivery Me thod Nasal Cannula 09/27/23 18:46 Oxygen Flow Rate 3 09/27/23 18:46 MDM - Epistaxis Medical Decision Making Topical antibiotic ointment short course of Augmentin follow-up with primary care doctor return if has further bleeding. Encouraged use of humidification for oxygen whenever possible. Medical Records I reviewed the patient's medical records. Lab Data I reviewed the patient's lab results. No radiology studies performed this visit Discharge Plan Discharge Patient Disposition: Home Clinical Impression: Acute anterior epistaxis Condition: Stable Prescriptions: New mupirocin 2 % ointment 1 applic topical BID Qty: 22 0RF cefdinir 300 mg capsule 300 mg PO BID 5 Days Qty: 10 0RF No Action aspirin [Adult Aspirin Regimen] 81 mg tablet,delayed release (DR/EC) 81 mg PO DAILY Jardiance 10 mg tablet 10 mg PO DAILY furosemide 40 mg tablet 40 mg PO DAILY spironolactone 25 mg tablet 25 mg PO DAILY pantoprazole 40 mg tablet,delayed release (DR/EC) 40 mg PO DAILY lisinopril 10 mg tablet 10 mg PO DAILY clopidogrel 75 mg tablet 75 mg PO DAILY atorvastatin 40 mg tablet 40 mg PO DAILY (DME) oxygen See Rx Instructions .Route .MEDSUPPLY Qty: 1 0RF Rx Instructions: As directed at HS oxycodone-acetaminophen [Percocet] 5-325 mg tablet 1 tab PO Q8H PRN (Reason: pain) 30 Days Qty: 90 0RF metoprolol succinate 100 mg tablet extended release 24 hr 100 mg PO DAILY ondansetron 4 mg tablet,disintegrating 4 mg PO Q8H PRN (Reason: nausea and vomiting) Qty: 15 0RF Discharge Orders: Discharge ED (Routine); Ordered 09/27/23 Ordered By: Stan Casey Referrals: Raul Rodriguez MD [Primary Care Provider] - Discharge Diet: Usual diet Discharge Activity: Increase activity as tolerated Patient Instructions: Epistaxis - Adult, Opioid Safety, Pain Management Activity Restrictions/Additional Instructions: Thank you for choosing [facility] for your healthcare needs today. Please realize this is an emergency room and that we are providing you with a medical screening exam and this may not be complete and all inclusive of all the testing and or work up that you may need to determine your ailment or severity of your illness. It is very important that you follow up as instructed or that you return to the Emergency Department should you have concerns or if your condition changes or worsens in any way. Case management make arrangements for you to follow-up with ENT. Apply topical antibiotic ointment inside of the nares twice a day for the next 5 to 7 days and oral antibiotics twice daily for 5 days Coding Level of Care Code ED Masonry Instructor for Alex Ingram
[2023-09-27 18:46] VITALS: O2SAT 98
[2023-09-27 19:22] VITALS: RESP 18; O2SAT 96
== END 2023-09-27 19:23 | disposition home or self-care (01) ==
PROVIDERS: Emergency Provider Family Medicine; PCP Family Medicine
DX: R04.0 Epistaxis (principal); Z79.82 Long term (current) use of aspirin; Z79.02 Long term (current) use of antithrombotics/antiplatelets; J44.9 Chronic obstructive pulmonary disease, unspecified; I10 Essential (primary) hypertension; Z85.118 Personal history of other malignant neoplasm of bronchus and lung; Z87.891 Personal history of nicotine dependence
CPT/HCPCS: 99283

== ENCOUNTER 2023-10-21 18:32 | Emergency (ER) | payer MEDICARE, MEDICAID, SELFPAY ==
[2023-10-21] VITALS (9 sets, daily range): BP systolic 139–187; BP diastolic 62–83; PULSE 70–89; RESP 13–22; TEMP 36.7; O2SAT 94–98
--- NOTE | 2023-10-21 18:47 | XRR_ITS ---
PROCEDURE INFORMATION: Exam: XR Chest Exam date and time: 10/21/2023 6:50 PM Age: 68 years old Clinical indication: Shortness of breath; Patient HX: C/O SOB. History of small cell lung cancer. TECHNIQUE: Imaging protocol: Radiologic exam of the chest. Views: 1 view. COMPARISON: CR XR chest 1V portable [id number] 08/03/2023 6:05 PM FINDINGS: Lungs: Hazy opacity in the right lower lobe. Pleural spaces: No large pleural effusion. No distinct pneumothorax. Heart/Mediastinum: Cardiomediastinal silhouette is midline and normal in size. Bones/joints: No acute osseous findings. XR/XR chest 1V portable [id number] IMPRESSION: Hazy opacity in the right lower lobe. This finding is somewhat decreased in conspicuity compared to 08/03/2023. A cavitary lesion was seen in this location on PET-CT 04/22/2023. This likely represents neoplastic disease. Overlying atelectasis and/or infiltrate is not excluded.
[2023-10-21] MEDS: ipratropium-albuterol 3 mL Neb INHALATION (19:00)
[2023-10-21 19:15] LABS: ABG PCO2 30.4 mmHg (35-45); Arterial Blood Gas Hematocrit 39.4 % (37-47); Base Excess ABG 8.3 mmol/L (-2.0-2.0); Blood Gas Allen Test Pos; Blood Gas Sample Type Arterial; Carboxyhemoglobin 0.9 %THgb (0.4-20.1); HCO3 ABG 29.7 mmol/L (22-26); HGB O2 Sat 97.9 % (95-100); Methemoglobin 0.4 % (0.4-1.5); PO2 ABG 93.7 mmHg (80.0-100.0); Total Hemoglobin 12.9 g/dL (12-16)
[2023-10-21 19:16] LABS: Blood Gas Operator Identificat ED; Blood Gas Sample Site Radial, right; Oxygen Device NC; PO2 FiO2 Ratio Arterial Blood 0
[2023-10-21] MEDS: ondansetron 2 mg/ML SDV 2 mL 4 MG IVP (19:20)
--- NOTE | 2023-10-21 19:25 | ECG_ITS ---
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 Measurements Intervals [place] Rate: 71 P: -11 ME: 175 QRS: 0 QRSD: 98 T: 54 QT: 407 QTc: 445 Interpretive Statements SINUS RHYTHM Compared to ECG 08/03/2023 18:09:16 No significant changes Electronically Signed On 10-22-2023 20:53:43 [id number] ADMINISTRATOR by Sury Trejo M.D. [id number]
[2023-10-21 19:53] LABS: Basophils % 0.4 %; Eosinophils # 0.1 10^3/uL (0.0-0.8); Eosinophils % 0.7 %; Hematocrit 38.5 % (36-47); Lymphocytes # 3.5 10^3/uL (0.8-4.8); Lymphocytes % 30.7 %; Mean Corpuscular HGB Conc 31.7 g/dL (30-55); Mean Corpuscular Hemoglobin 27.4 pg (27-33); Mean Corpuscular Volume 86.3 fl (85-98); Mean Platelet Volume 10.5 fL (7.4-10.4); Monocytes # 0.7 10^3/uL (0.2-0.9); Monocytes % 6.3 %; Neutrophils % 61.5 %; Nucleated Red Blood Cells % 0 %; Platelet Count 267 10^3/cmm (157-399); Red Blood Count 4.46 10^6/uL (3.85-5.65); Red Cell Distribution Width 14.7 % (12.1-15.1); White Blood Count 11.35 10^3/uL (3.29-11.43)
[2023-10-21 20:09] LABS: Lactic Sepsis W/Reflex 3.1 mmol/L (0.5-2.2)
[2023-10-21 20:15] LABS: Alanine Aminotransferase 8 U/L (0-33); Albumin Level 4.3 g/dL (3.5-5.2); Alkaline Phosphatase 165 U/L (35-105); Anion Gap 19.2 (5-19); Aspartate Amino Transferase 15 U/L (0-32); Blood Urea Nitrogen 22 mg/dL (8-23); Calcium 10.1 mg/dL (8.5-10.5); Carbon Dioxide 29 mmol/L (22-29); Chloride 93 mmol/L (98-107); Glomerular Filtration Rate 71.1 mL/min (90-130); Glucose 158 mg/dL (65-115); NT Pro B Type Natriuretic Pept 381 pg/mL (0-125); Osmolality Calculated 291 mOsm/kg (285-295); Potassium 4.2 mmol/L (3.5-5.1); Sodium 137 mmol/L (136-145); Total Bilirubin 0.7 mg/dL (0.15-1.2); Total Protein 8.3 g/dL (6.6-8.7)
--- NOTE | 2023-10-21 20:36 | ED_ITS ---
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 She presents with increased shortness of breath over the last 48 hours or so. Cough with clear sputum production. No significant chest pain. No vomiting or diarrhea. She has been nauseated. No fever. Associated symptoms: Reports nausea; Deny abdominal pain, chest pain, fever(s), palpitations or vomiting Review of Systems 2 Const: Denies: fever(s) or chills Card: Denies: chest pain or palpitations Resp: Reports: dyspnea, productive cough and wheezing GI: Reports: nausea; Denies: abdominal pain or vomiting Psych: Reports: anxiety PFSH ED 2 PFSH: Medical History Non-small cell lung cancer Enrolled in chronic care management COPD (chronic obstructive pulmonary disease) Essential hypertension Arthritis Hyperglycemia without ketosis Family History Father , heart attack No problems noted. Mother , PE No problems noted. Sister , heart attack No problems noted. Social History Smoking and tobacco/nicotine status: former use of tobacco/nicotine Quit status (tobacco/nicotine): has quit using Year quit tobacco: 2017 Former quit date comment: 40 years Alcohol intake: never Physical Exam 2 Const: GENERAL APPEARANCE: cooperative and ill appearing (mildly); not frail appearing HENMT: COMMON NORMALS: normocephalic, atraumatic and Normal external nose present HEAD & SCALP: normocephalic and atraumatic FACE & SINUS: normal facial exam and face symmetric NOSE: Normal external nose present Eye: COMMON NORMALS: Equal, round and reactive pupils present and EOMs intact bilaterally PUPIL: Yes Equal, round and reactive pupils present Neck/C-Spine: GENERAL: Yes trachea midline Chest: CHEST: Yes Symmetrical chest wall rise Resp: COMMON NORMALS: normal respiratory effort AUSCULTATION: wheezes and diminished lung sounds Cardio: COMMON NORMALS: regular rate and regular rhythm RATE: regular rate RHYTHM: regular rhythm GI: COMMON NORMALS: Normal to inspection, nondistended, normoactive bowel sounds present Extremity: GENERAL: Yes edema Neuro: BIMAL COMA SCALE: document GCS findings Bimal coma scale eye opening: Spontaneous Bimal coma scale verbal response: Orientated [place] coma scale motor response: Obey commands Bimal coma scale total score: 15 S ENSORY EXAM: Yes extremities (intact) Psych: COMMON NORMALS: speech normal SPEECH: Yes normal speech Skin: COMMON NORMALS: no rashes or lesions noted GENERAL SKIN EXAM: no rashes or lesions noted Course 2 Vital Signs: Vital signs: Vital Signs Temperature 98.0 F 10/21/23 18:33 Pulse Rate 89 10/21/23 22:00 Respiratory Rate 22 H 10/21/23 22:00 Blood Pressure 148/72 10/21/23 22:00 Pulse Oximetry 95 10/21/23 22:00 Oxygen Delivery Me thod Nasal Cannula 10/21/23 19:50 Oxygen Flow Rate 3 10/21/23 19:50 MDM - SOB/Dyspnea Medical Decision Making Patient is satting well on her home O2 settings. Chest x-ray does not reveal acute change. There does appear to be opacity in the right lower lobe that is chronic. White blood cell count is 11. No virus detected by PCR. BNP is only 381. She will be treated for COPD exacerbation. She is stable for discharge. Return for worsening symptoms. Lab Data 10/21/23 19:30 10/21/23 19:30 Labs/Radiology: Radiology Impressions Chest X-Ray 10/21/23 18:47 IMPRESSION: Hazy opacity in the right lower lobe. This finding is somewhat decreased in conspicuity compared to 08/03/2023. A cavitary lesion was seen in this location on PET-CT 04/22/2023. This likely represents neoplastic disease. Overlying atelectasis and/or infiltrate is not excluded. Laboratory Results WBC 11.35 10^3/uL (3.29-11.43) 10/21/23 19:30 RBC 4.46 10^6/uL (3.85-5.65) 10/21/23 19:30 Hgb 12.20 g/dL (11.27-16.99) 10/21/23 19:30 Hct 38.5 % (36-47) 10/21/23 19:30 MCV 86.3 fl (85-98) 10/21/23 19: MCH 27.4 pg (27-33) 10/21/23 19: MCHC 31.7 g/dL (30-55) 10/21/23 19: RDW 14.7 % (12.1-15.1) 10/21/23 19: Plt Count 267 10^3/cmm (157-399) 10/21/23 19: MPV 10.5 fL (7.4-10.4) H 10/21/23 19: Neut % (Auto) 61.5 % 10/21/23 19: Lymph % (Auto) 30.7 % 10/21/23 19: Ada % (Auto) 6.3 % 10/21/23: Eos % (Auto) 0.7 % 10/21/23: Baso % (Auto) 0.4 % 10/21/23: Neut # (Auto) 7.00 10^3/uL (1.8-7.7) 10/21/23: Lymph # (Auto) 3.5 10^3/uL (0.8-4.8) 10/21/23: Ada # (Auto) 0.7 10^3/uL (0.2-0.9) 10/21/23: Eos # (Auto) 0.1 10^3/uL (0.0-0.8) 10/21/23: Baso # (Auto) 0.0 10^3/uL (0.0-0.1) 10/21/23: Nucleated RBC % (auto) 0 % 10/21/23: Nucleated RBCs # 0.0 /100WBC 10/21/23 19: Specimen Type Arterial 10/21/23 18:45 Sample Site Radial, right 10/21/23 18:45 ABG pH 7.60 (7.35-7.45) H* 10/21/23 18:45 ABG pCO2 30.4 mmHg (35-45) L 10/21/23 18:45 ABG pO2 93.7 mmHg (80.0-100.0) 10/21/23 18:45 ABG PO2/FiO2 Ratio 0 10/21/23 18:45 ABG HCO3 29.7 mmol/L (22-26) H 10/21/23 18:45 ABG Base Excess 8.3 mmol/L (-2.0-2.0) H 10/21/23 18:45 Artemio Test Pos 10/21/23 18:45 Hematocrit 39.4 % (37-47) 10/21/23 18:45 Hgb O2 Saturation 97.9 % (95-100) 10/21/23 18:45 Carboxyhemoglobin 0.9 %THgb (0.4-20.1) 10/21/23 18:45 Methemoglobin 0.4 % (0.4-1.5) 10/21/23 18:45 Total Hemoglobin 12.9 g/dL (12-16) 10/21/23 18:45 O2 Delivery Device Nc 10/21/23 18:45 O2 Liters/Min 3.0 % 10/21/23 18:45 FiO2 32.0 % 10/21/23 18:45 Child Guidance Counselor ID Ed 10/21/23 18:45 Sodium 137 mmol/L (136-145) 10/21/23 19:30 Potassium 4.2 mmol/L (3.5-5.1) 10/21/23 19:30 Chloride 93 mmol/L (98-107) L 10/21/23 19:30 Carbon Dioxide 29 mmol/L (22-29) 10/21/23 19:30 Anion Gap 19.2 (5-19) H 10/21/23 19:30 BUN 22 mg/dL (8-23) 10/21/23 19:30 Creatinine 0.8 mg/dL (0.5-0.9) 10/21/23 19:30 GFR Calculation 71.1 mL/min (90-130) L 10/21/23 19:30 Glucose 158 mg/dL (65-115) H 10/21/23 19:30 Calculated Osmolality 291 mOsm/kg (285-295) 10/21/23 19:30 Lactic Acid 3.1 mmol/L (0.5-2.2) H 10/21/23 19:30 Calcium 10.1 mg/dL (8.5-10.5) 10/21/23 19:30 Total Bilirubin 0.7 mg/dL (0.15-1.2) 10/21/23 19:30 AST 15 U/L (0-32) 10/21/23 19:30 ALT 8 U/L (0-33) 10/21/23 19:30 Alkaline Phosphatase 165 U/L (35-105) H 10/21/23 19:30 NT-Pro-B Natriuret Pep 381 pg/mL (0-125) H 10/21/23 19:30 Total Protein 8.3 g/dL (6.6-8.7) 10/21/23 19:30 Albumin 4.3 g/dL (3.5-5.2) 10/21/23 19:30 Globulin 4.0 g/dL (1.3-4.6) 10/21/23 19:30 Adenovirus (PCR) Not detected (NOT DETECT) 10/21/23 19:03 C. pneumoniae DNA (PCR) Not detected (NOT DETECT) 10/21/23 19:03 Coronavirus 229E (PCR) Not detected (NOT DETECT) 10/21/23 19:03 Human Metapneumovir PCR Not detected (NOT DETECT) 10/21/23 19:03 Influenza A (H1) PCR Not detected (NOT DETECT) 10/21/23 19:03 Influ A (H1/09) PCR Not detected (NOT DETECT) 10/21/23 19:03 Influenza A (H3) PCR Not detected (NOT DETECT) 10/21/23 19:03 Influenza Type A (PCR) Not detected (NOT DETECT) 10/21/23 19:03 Influenza Type B (PCR) Not detected (NOT DETECT) 10/21/23 19:03 M. pneumoniae (PCR) Not detected (NOT DETECT) 10/21/23 19:03 Parainfluenza 1 (PCR) Not detected (NOT DETECT) 10/21/23 19:03 Parainfluenza 2 (PCR) Not detected (NOT DETECT) 10/21/23 19:03 Parainfluenza 3 (PCR) Not detected (NOT DETECT) 10/21/23 19:03 Parainfluenza 4 (PCR) Not detected (NOT DETECT) 10/21/23 19:03 RSV Type A (PCR) Not detected (NOT DETECT) 10/21/23 19:03 RSV Type B (PCR) Not detected (NOT DETECT) 10/21/23 19:03 Entero/Rhino (PCR) Not detected (NOT DETECT) 10/21/23 19:03 SARS-CoV-2 (PCR) Not detected (NOT DETECT) 10/21/23 19:03 All radiology interpretation(s) finalized by discharge Discharge Plan Discharge Patient Disposition: Home Clinical Impression: Acute exacerbation of chronic obstructive airways disease Condition: Stable Prescriptions: New levofloxacin 500 mg tablet 500 mg PO DAILY 7 Days Qty: 7 0RF Medrol (Santos) 4 mg tablets,dose pack See Rx Instructions PO .COMPLEX Qty: 21 0RF Rx Instructions: orally per package directions albuterol sulfate 90 mcg/actuation HFA aerosol inhaler 2 inh INHALATION Q4H PRN (Reason: shortness of breath or wheezing) Qty: 6.7 1RF No Action aspirin [Adult Aspirin Regimen] 81 mg tablet,delayed release (DR/EC) 81 mg PO DAILY Jardiance 10 mg tablet 10 mg PO DAILY furosemide 40 mg tablet 40 mg PO DAILY spironolactone 25 mg tablet 25 mg PO DAILY pantoprazole 40 mg tablet,delayed release (DR/EC) 40 mg PO DAILY lisinopril 10 mg tablet 10 mg PO DAILY clopidogrel 75 mg tablet 75 mg PO DAILY atorvastatin 40 mg tablet 40 mg PO DAILY (DME) oxygen See Rx Instructions .Route .MEDSUPPLY Qty: 1 0RF Rx Instructions: As directed at HS diazepam [Valium] 5 mg tablet 5 mg PO ONCE Qty: 1 0RF Rx Instructions: Take 30 minutes prior to MRI scan oxycodone-acetaminophen [Percocet] 5-325 mg tablet 1 tab PO Q8H PRN (Reason: pain) 30 Days Qty: 90 0RF metoprolol succinate 100 mg tablet extended release 24 hr 100 mg PO DAILY mupirocin 2 % ointment 1 applic topical BID Qty: 22 0RF ondansetron 4 mg tablet,disintegrating 4 mg PO Q8H PRN (Reason: nausea and vomiting) Qty: 15 0RF Discharge Orders: Discharge ED (Routine); Ordered 10/21/23 Ordered By: Rishabh Mccarthy Referrals: Raul Rodriguez MD [Primary Care Provider] - Patient Instructions: Opioid Safety, Pain Management Activity Restrictions/Additional Instructions: Medication as directed. Continue your oxygen at home. Use the inhaler every 4 hours while awake for the first 48 hours whether you feel you needed or not, then as needed following that. Return for worsening shortness of breath, chest pain, fever despite 2-3 doses of antibiotics, other concerning symptoms. Coding Level of Care Code ED Salt Manager for Alex Ingram
[2023-10-21 20:54] LABS: Adenovirus Not Detected (NOT DETECT); Chlamydia Pneumoniae Not Detected (NOT DETECT); Coronavirus 229E,HKU1,NL63,OC4 Not Detected (NOT DETECT); Human Metapneumovirus Not Detected (NOT DETECT); Human Rhinovirus/Enterovirus Not Detected (NOT DETECT); Influenza A Not Detected (NOT DETECT); Influenza A H1 Not Detected (NOT DETECT); Influenza A H1-2009 Not Detected (NOT DETECT); Influenza A H3 Not Detected (NOT DETECT); Influenza B Not Detected (NOT DETECT); Mycoplasma Pneumoniae Not Detected (NOT DETECT); Parainfluenza Virus Type 1 Not Detected (NOT DETECT); Parainfluenza Virus Type 2 Not Detected (NOT DETECT); Parainfluenza Virus Type 3 Not Detected (NOT DETECT); Parainfluenza Virus Type 4 Not Detected (NOT DETECT); Respiratory Syncytial Virus A Not Detected (NOT DETECT); Respiratory Syncytial Virus B Not Detected (NOT DETECT); SARS-COV-2 Not Detected (NOT DETECT)
[2023-10-21 21:33] LABS: Reflex Lactate Order REFLEX LACTIC ORDERD
[2023-10-21] MEDS: methylPREDNISolone sod succ 125 mg/2 mL INJ IVP (21:57)
[2023-10-21] MEDS: levoFLOXacin 750 mg Tablet PO (21:57)
== END 2023-10-21 22:41 | disposition home or self-care (01) ==
PROVIDERS: Emergency Provider Emergency Medicine; PCP Family Medicine
DX: J44.1 Chronic obstructive pulmonary disease with (acute) exacerbation (principal); Z79.02 Long term (current) use of antithrombotics/antiplatelets; Z79.82 Long term (current) use of aspirin; Z11.52 Encounter for screening for COVID-19; Z85.118 Personal history of other malignant neoplasm of bronchus and lung; I10 Essential (primary) hypertension; Z87.891 Personal history of nicotine dependence; Z99.81 Dependence on supplemental oxygen
CPT/HCPCS: 36415; 71045; 80053; 82805; 83605; 83880; 85025; 87040; 87486; 87581; 87633; 93005; 94640; 96374; 96375; 99285; J2405; J2930

== ENCOUNTER 2023-11-17 19:06 | Emergency (ER) | payer MEDICARE, MEDICAID, SELFPAY ==
[2023-11-17 19:08] VITALS: BP 144/88; PULSE 91; RESP 18; TEMP 36.6; O2SAT 92; BMI 39.0
--- NOTE | 2023-11-17 19:27 | XRR_ITS ---
PROCEDURE INFORMATION: Exam: XR Chest Exam date and time: 11/17/2023 7:43 PM Age: 68 years old Clinical indication: Shortness of breath; Patient HX: C/O SOB. History of non small cell lung cancer. TECHNIQUE: Imaging protocol: Radiologic exam of the chest. Views: 1 view. COMPARISON: CR (CHEST, ) 10/21/2023 6:50 PM FINDINGS: Lungs: There is mild improvement of patchy opacification in the right lower lobe. Findings suggest improvement of atelectasis or pneumonia. Persistent opacification may be due to the patient's known primary tumor. Pleural spaces: No pleural effusion. No pneumothorax. Heart/Mediastinum: Stable mild enlargement of the cardiac silhouette. Mediastinal contours are unremarkable. Vasculature: Stable vascular calcifications in the aorta. Bones/joints: Unremarkable for age. XR/XR chest 1V portable [id number] IMPRESSION: 1. There is mild improvement of patchy opacification in the right lower lobe. Findings suggest improvement of atelectasis or pneumonia. Persistent opacification may be due to the patient's known primary tumor. 2. Incidental/nonacute findings are listed in the report.
[2023-11-17 19:46] VITALS: PULSE 60; RESP 18; O2SAT 95
[2023-11-17] MEDS: ipratropium-albuterol 3 mL Neb INHALATION (19:46)
[2023-11-17 19:50] VITALS: PULSE 65; RESP 18; O2SAT 95
--- NOTE | 2023-11-17 19:57 | ED_ITS ---
Documented by User: RAMOS Kwon 11/17/23 21:50 HPI - SOB/Dyspnea 2 General: Chief Complaint: Upper Respiratory Infection Stated Complaint: VOMITING Time Seen by Provider: 11/17/23 19:20 Source: patient Mode of arrival: EMS Limitations: no limitations History of Present Illness: HPI Narrative: Patient is a 68-year-old female with history of COPD who presents to the emergency department via EMS complaining of shortness of breath onset 2 days. Patient was seen for similar symptoms in the ED on 10/21 where she was diagnosed with a COPD exacerbation and subsequently prescribed antibiotics. She notes that she was gaining improvement and felt okay up until onset of symptoms again 2 days ago. She now reports that she is coughing up white stuff and has also been nauseous and vomiting. She notes being short of breath again, however denies any chest pain, fatigue, weakness, palpitations, or any other symptoms. She is unsure of her medical history but states that she is on Jardiance for diabetes. She is on 3 L of O2 nasal cannula at all times. She denies needing more than her normal 3 L over the past 2 days. She denies any fever or sick contacts. MD elicited complaint: shortness of breath Pertinent past history: COPD Onset (ago): day(s) (2) Context: other (Recent ED visit for same symptoms) Timing: constant Severity: moderate Known history of: COPD Associated symptoms: Reports cough, nausea and vomiting; Deny abdominal pain, chest pain, fever(s), lightheadedness or palpitations Review of Systems 2 General: Reports: 10 or more systems reviewed and unremarkable except in HPI and below Const: Denies: fever(s), chills or fatigue Eyes: Denies: change in vision ENMT: Denies: throat pain, ear or mastoid pain or nasal discharge Card: Denies: chest pain, palpitations, swelling of feet/ankles or lightheadedness Resp: Reports: dyspnea and productive cough; Denies: wheezing GI: Reports: nausea and vomiting; Denies: abdominal pain, hematemesis or diarrhea : Denies: flank pain, difficulty voiding, dysuria or urinary frequency Musc: Denies: neck pain, back pain or joint pain Skin/Breast: Denies: rash Neuro: Denies: headache(s), numbness in extremities or weakness in extremities PFSH ED 2 PFSH: Medical History Non-small cell lung cancer Enrolled in chronic care management COPD (chronic obstructive pulmonary disease) Essential hypertension Arthritis Hyperglycemia without ketosis Family History Father , heart attack No problems noted. Mother , PE No problems noted. Sister , heart attack No problems noted. Social History Smoking and tobacco/nicotine status: former use of tobacco/nicotine Quit status (tobacco/nicotine): has quit using Year quit tobacco: 2016 Former quit date comment: 40 years Alcohol intake: never Physical Exam 2 Const: COMMON NORMALS: patient oriented x3 and no limitations GENERAL APPEARANCE: cooperative and diaphoretic NUTRITIONAL APPEARANCE: obese morbidly obese ORIENTATION/CONSCIOUSNESS: Yes awake, Yes oriented to person, Yes oriented to place and Yes oriented to time OTHER: No apparent respiratory distress noted HENMT: COMMON NORMALS: normocephalic, atraumatic, hearing grossly normal bilaterally, external ears normal and Normal external nose present HEAD & SCALP: normocephalic and atraumatic FACE & SINUS: normal facial exam NOSE: Normal external nose present EXTERNAL EAR: Yes external ears normal MOUTH: Normal oral and palatal mucosa present THROAT: posterior oropharynx normal Eye: COMMON NORMALS: Equal, round and reactive pupils present, EOMs intact bilaterally and conjunctivae normal CONJUNCTIVA: Yes conjunctivae normal P UPIL: Yes Equal, round and reactive pupils present Neck/C-Spine: COMMON NORMALS: full ROM, supple and no JVD Resp: COMMON NORMALS: normal respiratory effort, No retractions and No use of accessory muscles EFFORT & INSPECTION: Yes able to speak in complete sentences and Yes symmetric chest movement AUSCULTATION: wheezes (Minimal) expiratory wheezes and throughout Cardio: COMMON NORMALS: no JVD, regular rate, regular rhythm, No clicks present (Cardio), No murmurs present (Cardio) and No rub (Cardio) RATE: r egular rate RHYTHM: regular rhythm GI: COMMON NORMALS: Normal to inspection, nondistended, normoactive bowel sounds present, Soft to palpation and non-tender AUSCULTATION: Yes normoactive bowel sounds PALPATION: Yes Soft to palpation RECTAL EXAM: d eferred Extremity: COMMON NORMALS: normal to inspection, full ROM and capillary refill normal Neuro: COMMON NORMALS: patient oriented x3, moves all extremities, no focal motor deficits and no sensory deficits noted SENSORIUM/ORIENTATION: Yes oriented to person, Yes oriented to place and Yes oriented to time Psych: COMMON NORMALS: mental status grossly normal and Normal thought process present THOUGHT PROCESS: Normal thought process present Skin: COMMON NORMALS: no rashes or lesions noted GENERAL SKIN EXAM: no rashes or lesions noted Course 2 Vital Signs: Vital signs: Vital Signs Temperature 97.8 F 11/17/23 19:08 Pulse Rate 74 11/17/23 21:56 Respiratory Rate 16 11/17/23 21:56 Blood Pressure 109/65 11/17/23 21:56 Pulse Oximetry 99 11/17/23 21:56 Oxygen Delivery Me thod Nasal Cannula 11/17/23 19:50 Oxygen Flow Rate 3 11/17/23 19:50 MDM - SOB/Dyspnea Medical Decision Making This patient was seen and evaluated in the emergency department today as she presented via EMS due to shortness of breath. She has history of COPD and was recently seen on 10/21 for a COPD exacerbation and subsequently treated with an antibiotic. She has not required use of more than her normal 3 L of oxygen. She is primarily concerned of her new onset nausea/vomiting. Upon initial examination, patient is morbidly obese but was not in any significant respiratory distress. Her lungs showed mild diffuse expiratory wheezing, the rest of her exam was essentially unremarkable. Labs remarkable for some chronic arterial blood gas changes that are similar when compared to previous visit. EKG unremarkable and her chest x-ray showed some improvement when compared to her chest x-ray on 10/21. Upon recheck of the patient following IV fluids, Zofran, and a DuoNeb treatment, she states she feels better and tells me that she has a history of non-small cell lung cancer, which she states is inoperable. She has not followed up with oncology and has not discussed any palliative treatments. I informed her that she needs to follow-up with her primary care to discuss necessary palliative treatments going forward, however I will discharge her with prescriptions of Zofran as well as prednisone. Reasons to return are discussed. Patient agrees with this plan and will be discharged home. Medical Records I reviewed the patient's medical records. Lab Data I reviewed the patient's lab results. 11/17/23 19:54 11/17/23 19:54 Labs/Radiology: Radiology Impressions Chest X-Ray 11/17/23 19:27 IMPRESSION: 1. There is mild improvement of patchy opacification in the right lower lobe. Findings suggest improvement of atelectasis or pneumonia. Persistent opacification may be due to the patient's known primary tumor. 2. Incidental/nonacute findings are listed in the report. Laboratory Results WBC 8.71 10^3/uL (3.29-11.43) 11/17/23 19:54 RBC 4.57 10^6/uL (3.85-5.65) 11/17/23 19:54 Hgb 12.80 g/dL (11.27-16.99) 11/17/23 19:54 Hct 39.6 % (36-47) 11/17/23 19:54 MCV 86.7 fl (85-98) 11/17/23 19:54 MCH 28.0 pg (27-33) 11/17/23 19:54 MCHC 32.3 g/dL (30-55) 11/17/23 19:54 RDW 15.3 % (12.1-15.1) H 11/17/23 19:54 Plt Count 234 10^3/cmm (157-399) 11/17/23 19:54 MPV 11.1 fL (7.4-10.4) H 11/17/23 19:54 Neut % (Auto) 54.9 % 11/17/23 19:54 Lymph % (Auto) 34.3 % 11/17/23 19:54 [place] % (Auto) 8.5 % 11/17/23 19:54 Eos % (Auto) 1.6 % 11/17/23 19:54 Baso % (Auto) 0.6 % 11/17/23 19:54 Neut # (Auto) 4.78 10^3/uL (1.8-7.7) 11/17/23 19:54 Lymph # (Auto) 3.0 10^3/uL (0.8-4.8) 11/17/23 19:54 [place] # (Auto) 0.7 10^3/uL (0.2-0.9) 11/17/23 19:54 Eos # (Auto) 0.1 10^3/uL (0.0-0.8) 11/17/23 19:54 Baso # (Auto) 0.1 10^3/uL (0.0-0.1) 11/17/23 19:54 Nucleated RBC % (auto) 0 % 11/17/23 19:54 Nucleated RBCs # 0.0 /100WBC 11/17/23 19:54 Specimen Type Arterial 11/17/23 19:55 Sample Site Brachial, right 11/17/23 19:55 ABG pH 7.51 (7.35-7.45) H 11/17/23 19:55 ABG pCO2 33.2 mmHg (35-45) L 11/17/23 19:55 ABG pO2 63.2 mmHg (80.0-100.0) L 11/17/23 19:55 ABG PO2/FiO2 Ratio 0 11/17/23 19:55 ABG HCO3 26.3 mmol/L (22-26) H 11/17/23 19:55 ABG O2 Saturation 93.2 11/17/23 19:55 ABG Base Excess 3.5 mmol/L (-2.0-2.0) H 11/17/23 19:55 Artemio Test Pos 11/17/23 19:55 A-a O2 Gradient 15.8 mmHg (5-10) H 11/17/23 19:55 Hematocrit 39.2 % (37-47) 11/17/23 19:55 Hgb O2 Saturation 91.6 % (95-100) L 11/17/23 19:55 Carboxyhemoglobin 0.9 %THgb (0.4-20.1) 11/17/23 19:55 Methemoglobin 0.7 % (0.4-1.5) 11/17/23 19:55 Total Hemoglobin 12.8 g/dL (12-16) 11/17/23 19:55 Sodium 137.0 mmol/L (131-143) 11/17/23 19:55 Potassium 5.3 mmol/L (3.5-5.0) H 11/17/23 19:55 Glucose 111.0 mg/dL (70-115) 11/17/23 19:55 Ionized Calcium 1.2 mmol/L (1.1-1.4) 11/17/23 19:55 O2 Delivery Device Nc 11/17/23 19:55 O2 Liters/Min 3.0 % 11/17/23 19:55 FiO2 32.0 % 11/17/23 19:55 Sand Mixer ID [email or web address] 11/17/23 19:55 Sodium 135 mmol/L (136-145) L 11/17/23 19:54 Potassium 5.0 mmol/L (3.5-5.1) 11/17/23 19:54 Chloride 90 mmol/L (98-107) L 11/17/23 19:54 Carbon Dioxide 28 mmol/L (22-29) 11/17/23 19:54 Anion Gap 22.0 (5-19) H 11/17/23 19:54 BUN 62 mg/dL (8-23) H 11/17/23 19:54 Creatinine 1.9 mg/dL (0.5-0.9) H 11/17/23 19:54 GFR Calculation 26.2 mL/min (90-130) L 11/17/23 19:54 Glucose 104 mg/dL (65-115) 11/17/23 19:54 Calculated Osmolality 298 mOsm/kg (285-295) H 11/17/23 19:54 Calcium 10.3 mg/dL (8.5-10.5) 11/17/23 19:54 Total Bilirubin 0.7 mg/dL (0.15-1.2) 11/17/23 19:54 AST 19 U/L (0-32) 11/17/23 19:54 ALT 14 U/L (0-33) 11/17/23 19:54 Alkaline Phosphatase 122 U/L (35-105) H 11/17/23 19:54 NT-Pro-B Natriuret Pep 362 pg/mL (0-125) H 11/17/23 19:54 Total Protein 8.5 g/dL (6.6-8.7) 11/17/23 19:54 Albumin 4.6 g/dL (3.5-5.2) 11/17/23 19:54 Globulin 3.9 g/dL (1.3-4.6) 11/17/23 19:54 Influenza Type A Ag negative (Negative) 11/17/23 19:38 Influenza Type B Ag negative (Negative) 11/17/23 19:38 SARS-CoV-2 Ag (Rapid) negative (Negative) 11/17/23 19:38 All radiology interpretation(s) finalized by discharge EKG Data EKG 1: I personally reviewed and interpreted this EKG as follows: EKG Interpretation Date: 11/17/23 EKG interpretation time: 20:39 Prior EKG tracings: available for review Interpretation: EKG reviewed by me. Sinus bradycardia. Rate 58. Normal axis. Normal intervals. No acute ST segment changes. No change from previous. Discharge Plan Discharge Patient Disposition: Home Clinical Impression: COPD (chronic obstructive pulmonary disease) Condition: Stable Prescriptions: New prednisone 20 mg tablet 60 mg PO ONCE 10 Days Qty: 30 0RF ondansetron HCl 4 mg tablet 4 mg PO Q8H Qty: 60 0RF No Action aspirin [Adult Aspirin Regimen] 81 mg tablet,delayed release (DR/EC) 81 mg PO DAILY Jardiance 10 mg tablet 10 mg PO DAILY furosemide 40 mg tablet 40 mg PO DAILY spironolactone 25 mg tablet 25 mg PO DAILY pantoprazole 40 mg tablet,delayed release (DR/EC) 40 mg PO DAILY lisinopril 10 mg tablet 10 mg PO DAILY clopidogrel 75 mg tablet 75 mg PO DAILY atorvastatin 40 mg tablet 40 mg PO DAILY (DME) oxygen See Rx Instructions .Route .MEDSUPPLY Qty: 1 0RF Rx Instructions: As directed at HS diazepam [Valium] 5 mg tablet 5 mg PO ONCE Qty: 1 0RF Rx Instructions: Take 30 minutes prior to MRI scan oxycodone-acetaminophen [Percocet] 5-325 mg tablet 1 tab PO Q8H PRN (Reason: pain) 30 Days Qty: 90 0RF metoprolol succinate 100 mg tablet extended release 24 hr 100 mg PO DAILY mupirocin 2 % ointment 1 applic topical BID Qty: 22 0RF Medrol (Santos) 4 mg tablets,dose pack See Rx Instructions PO .COMPLEX Qty: 21 0RF Rx Instructions: orally per package directions albuterol sulfate 90 mcg/actuation HFA aerosol inhaler 2 inh INHALATION Q4H PRN (Reason: shortness of breath or wheezing) Qty: 6.7 1RF ondansetron 4 mg tablet,disintegrating 4 mg PO Q8H PRN (Reason: nausea and vomiting) Qty: 15 0RF Discharge Orders: Discharge ED (Routine); Ordered 11/17/23 Ordered By: Case Alford Referrals: Raul Rodrigeuz MD [Primary Care Provider] - Discharge Diet: Usual diet Discharge Activity: Increase activity as tolerated Patient Instructions: COPD (Chronic Obstructive Pulmonary Disease) (ED) Activity Restrictions/Additional Instructions: Prednisone as prescribed. Zofran as needed for nausea. Please follow-up with your primary care provider and/your oncologist for further evaluation for palliative care. Return with any new or concerning symptoms. Coding Level of Care Code ED Oxidation Operator for Chg Fwd Documented by User: Stan Casey DO 11/18/23 06:29 HPI - SOB/Dyspnea 2 General: Chief Complaint: Upper Respiratory Infection Stated Complaint: VOMITING Time Seen by Provider: 11/17/23 19:20 PFSH ED 2 PFSH: Medical History Non-small cell lung cancer Enrolled in chronic care management COPD (chronic obstructive pulmonary disease) Essential hypertension Arthritis Hyperglycemia without ketosis Family History Father , heart attack No problems noted. Mother , PE No problems noted. Sister , heart attack No problems noted. Social History Smoking and tobacco/nicotine status: former use of tobacco/nicotine Quit status (tobacco/nicotine): has quit using Year quit tobacco: 2017 Former quit date comment: 40 years Alcohol intake: never Course 2 Vital Signs: Vital signs: Vital Signs Temperature 97.8 F 11/17/23 19:08 Pulse Rate 74 11/17/23 21:56 Respiratory Rate 16 11/17/23 21:56 Blood Pressure 109/65 11/17/23 21:56 Pulse Oximetry 99 11/17/23 21:56 Oxygen Delivery Me thod Nasal Cannula 11/17/23 19:50 Oxygen Flow Rate 3 11/17/23 19:50 MDM - SOB/Dyspnea Medical Decision Making This patient was seen and evaluated in the emergency department today as she presented via EMS due to shortness of breath. She has history of COPD and was recently seen on 10/21 for a COPD exacerbation and subsequently treated with an antibiotic. She has not required use of more than her normal 3 L of oxygen. She is primarily concerned of her new onset nausea/vomiting. Upon initial examination, patient is morbidly obese but was not in any significant respiratory distress. Her lungs showed mild diffuse expiratory wheezing, the rest of her exam was essentially unremarkable. Labs remarkable for some chronic arterial blood gas changes that are similar when compared to previous visit. EKG unremarkable and her chest x-ray showed some improvement when compared to her chest x-ray on 10/21. Upon recheck of the patient following IV fluids, Zofran, and a DuoNeb treatment, she states she feels better and tells me that she has a history of non-small cell lung cancer, which she states is inoperable. She has not followed up with oncology and has not discussed any palliative treatments. I informed her that she needs to follow-up with her primary care to discuss necessary palliative treatments going forward, however I will discharge her with prescriptions of Zofran as well as prednisone. Reasons to return are discussed. Patient agrees with this plan and will be discharged home. Chart reviewed Lab Data 11/17/23 19:54 11/17/23 19:54 Labs/Radiology: Radiology Impressions Chest X-Ray 11/17/23 19:27 IMPRESSION: 1. There is mild improvement of patchy opacification in the right lower lobe. Findings suggest improvement of atelectasis or pneumonia. Persistent opacification may be due to the patient's known primary tumor. 2. Incidental/nonacute findings are listed in the report. Laboratory Results WBC 8.71 10^3/uL (3.29-11.43) 11/17/23 19:54 RBC 4.57 10^6/uL (3.85-5.65) 11/17/23 19:54 Hgb 12.80 g/dL (11.27-16.99) 11/17/23 19:54 Hct 39.6 % (36-47) 11/17/23 19:54 MCV 86.7 fl (85-98) 11/17/23 19:54 MCH 28.0 pg (27-33) 11/17/23 19:54 MCHC 32.3 g/dL (30-55) 11/17/23 19:54 RDW 15.3 % (12.1-15.1) H 11/17/23 19:54 Plt Count 234 10^3/cmm (157-399) 11/17/23 19:54 MPV 11.1 fL (7.4-10.4) H 11/17/23 19:54 Neut % (Auto) 54.9 % 11/17/23 19:54 Lymph % (Auto) 34.3 % 11/17/23 19:54 [place] % (Auto) 8.5 % 11/17/23 19:54 Eos % (Auto) 1.6 % 11/17/23 19:54 Baso % (Auto) 0.6 % 11/17/23 19:54 Neut # (Auto) 4.78 10^3/uL (1.8-7.7) 11/17/23 19:54 Lymph # (Auto) 3.0 10^3/uL (0.8-4.8) 11/17/23 19:54 [place] # (Auto) 0.7 10^3/uL (0.2-0.9) 11/17/23 19:54 Eos # (Auto) 0.1 10^3/uL (0.0-0.8) 11/17/23 19:54 Baso # (Auto) 0.1 10^3/uL (0.0-0.1) 11/17/23 19:54 Nucleated RBC % (auto) 0 % 11/17/23 19:54 Nucleated RBCs # 0.0 /100WBC 11/17/23 19:54 Specimen Type Arterial 11/17/23 19:55 Sample Site Brachial, right 11/17/23 19:55 ABG pH 7.51 (7.35-7.45) H 11/17/23 19:55 ABG pCO2 33.2 mmHg (35-45) L 11/17/23 19:55 ABG pO2 63.2 mmHg (80.0-100.0) L 11/17/23 19:55 ABG PO2/FiO2 Ratio 0 11/17/23 19:55 ABG HCO3 26.3 mmol/L (22-26) H 11/17/23 19:55 ABG O2 Saturation 93.2 11/17/23 19:55 ABG Base Excess 3.5 mmol/L (-2.0-2.0) H 11/17/23 19:55 Artemio Test Pos 11/17/23 19:55 A-a O2 Gradient 15.8 mmHg (5-10) H 11/17/23 19:55 Hematocrit 39.2 % (37-47) 11/17/23 19:55 Hgb O2 Saturation 91.6 % (95-100) L 11/17/23 19:55 Carboxyhemoglobin 0.9 %THgb (0.4-20.1) 11/17/23 19:55 Methemoglobin 0.7 % (0.4-1.5) 11/17/23 19:55 Total Hemoglobin 12.8 g/dL (12-16) 11/17/23 19:55 Sodium 137.0 mmol/L (131-143) 11/17/23 19:55 Potassium 5.3 mmol/L (3.5-5.0) H 11/17/23 19:55 Glucose 111.0 mg/dL (70-115) 11/17/23 19:55 Ionized Calcium 1.2 mmol/L (1.1-1.4) 11/17/23 19:55 O2 Delivery Device Nc 11/17/23 19:55 O2 Liters/Min 3.0 % 11/17/23 19:55 FiO2 32.0 % 11/17/23 19:55 Sand Mixer ID [email or web address] 11/17/23 19:55 Sodium 135 mmol/L (136-145) L 11/17/23 19:54 Potassium 5.0 mmol/L (3.5-5.1) 11/17/23 19:54 Chloride 90 mmol/L (98-107) L 11/17/23 19:54 Carbon Dioxide 28 mmol/L (22-29) 11/17/23 19:54 Anion Gap 22.0 (5-19) H 11/17/23 19:54 BUN 62 mg/dL (8-23) H 11/17/23 19:54 Creatinine 1.9 mg/dL (0.5-0.9) H 11/17/23 19:54 GFR Calculation 26.2 mL/min (90-130) L 11/17/23 19:54 Glucose 104 mg/dL (65-115) 11/17/23 19:54 Calculated Osmolality 298 mOsm/kg (285-295) H 11/17/23 19:54 Calcium 10.3 mg/dL (8.5-10.5) 11/17/23 19:54 Total Bilirubin 0.7 mg/dL (0.15-1.2) 11/17/23 19:54 AST 19 U/L (0-32) 11/17/23 19:54 ALT 14 U/L (0-33) 11/17/23 19:54 Alkaline Phosphatase 122 U/L (35-105) H 11/17/23 19:54 NT-Pro-B Natriuret Pep 362 pg/mL (0-125) H 11/17/23 19:54 Total Protein 8.5 g/dL (6.6-8.7) 11/17/23 19:54 Albumin 4.6 g/dL (3.5-5.2) 11/17/23 19:54 Globulin 3.9 g/dL (1.3-4.6) 11/17/23 19:54 Influenza Type A Ag negative (Negative) 11/17/23 19:38 Influenza Type B Ag negative (Negative) 11/17/23 19:38 SARS-CoV-2 Ag (Rapid) negative (Negative) 11/17/23 19:38 Discharge Plan Discharge Patient Disposition: Home Clinical Impression: COPD (chronic obstructive pulmonary disease) Condition: Stable Prescriptions: New prednisone 20 mg tablet 60 mg PO ONCE 10 Days Qty: 30 0RF ondansetron HCl 4 mg tablet 4 mg PO Q8H Qty: 60 0RF No Action aspirin [Adult Aspirin Regimen] 81 mg tablet,delayed release (DR/EC) 81 mg PO DAILY Jardiance 10 mg tablet 10 mg PO DAILY furosemide 40 mg tablet 40 mg PO DAILY spironolactone 25 mg tablet 25 mg PO DAILY pantoprazole 40 mg tablet,delayed release (DR/EC) 40 mg PO DAILY lisinopril 10 mg tablet 10 mg PO DAILY clopidogrel 75 mg tablet 75 mg PO DAILY atorvastatin 40 mg tablet 40 mg PO DAILY (DME) oxygen See Rx Instructions .Route .MEDSUPPLY Qty: 1 0RF Rx Instructions: As directed at HS diazepam [Valium] 5 mg tablet 5 mg PO ONCE Qty: 1 0RF Rx Instructions: Take 30 minutes prior to MRI scan oxycodone-acetaminophen [Percocet] 5-325 mg tablet 1 tab PO Q8H PRN (Reason: pain) 30 Days Qty: 90 0RF metoprolol succinate 100 mg tablet extended release 24 hr 100 mg PO DAILY mupirocin 2 % ointment 1 applic topical BID Qty: 22 0RF Medrol (Santos) 4 mg tablets,dose pack See Rx Instructions PO .COMPLEX Qty: 21 0RF Rx Instructions: orally per package directions albuterol sulfate 90 mcg/actuation HFA aerosol inhaler 2 inh INHALATION Q4H PRN (Reason: shortness of breath or wheezing) Qty: 6.7 1RF ondansetron 4 mg tablet,disintegrating 4 mg PO Q8H PRN (Reason: nausea and vomiting) Qty: 15 0RF Discharge Orders: Discharge ED (Routine); Ordered 11/17/23 Ordered By: Case Alford Referrals: Raul Rodriguez MD [Primary Care Provider] - Discharge Diet: Usual diet Discharge Activity: Increase activity as tolerated Patient Instructions: COPD (Chronic Obstructive Pulmonary Disease) (ED) Activity Restrictions/Additional Instructions: Prednisone as prescribed. Zofran as needed for nausea. Please follow-up with your primary care provider and/your oncologist for further evaluation for palliative care. Return with any new or concerning symptoms. Coding Level of Care Code ED Oxidation Operator for Alex Ingram
[2023-11-17 20:00] LABS: Basophils # 0.1 10^3/uL (0.0-0.1); Basophils % 0.6 %; Eosinophils # 0.1 10^3/uL (0.0-0.8); Eosinophils % 1.6 %; Hematocrit 39.6 % (36-47); Lymphocytes % 34.3 %; Mean Corpuscular HGB Conc 32.3 g/dL (30-55); Mean Corpuscular Volume 86.7 fl (85-98); Mean Platelet Volume 11.1 fL (7.4-10.4); Monocytes # 0.7 10^3/uL (0.2-0.9); Monocytes % 8.5 %; Neutrophils # 4.78 10^3/uL (1.8-7.7); Neutrophils % 54.9 %; Nucleated Red Blood Cells % 0 %; Platelet Count 234 10^3/cmm (157-399); Red Blood Count 4.57 10^6/uL (3.85-5.65); Red Cell Distribution Width 15.3 % (12.1-15.1); White Blood Count 8.71 10^3/uL (3.29-11.43)
[2023-11-17 20:03] LABS: ABG PCO2 33.2 mmHg (35-45); ABG PH Result 7.51 (7.35-7.45); Alveolar-Arterial Oxygen Gradi 15.8 mmHg (5-10); Arterial Blood Gas Hematocrit 39.2 % (37-47); Base Excess ABG 3.5 mmol/L (-2.0-2.0); Blood Gas Allen Test Pos; Blood Gas Sample Site Brachial, right; Blood Gas Sample Type Arterial; Carboxyhemoglobin 0.9 %THgb (0.4-20.1); HCO3 ABG 26.3 mmol/L (22-26); HGB O2 Sat 91.6 % (95-100); Ionized Calcium Level - ABG 1.2 mmol/L (1.1-1.4); Methemoglobin 0.7 % (0.4-1.5); Oxygen Device NC; Oxygen Saturation ABG 93.2; PO2 ABG 63.2 mmHg (80.0-100.0); PO2 FiO2 Ratio Arterial Blood 0; Potassium Level - ABG 5.3 mmol/L (3.5-5.0); Total Hemoglobin 12.8 g/dL (12-16)
[2023-11-17] MEDS: ondansetron 2 mg/ML SDV 2 mL 4 MG IVP (20:06)
[2023-11-17] MEDS: sodium chloride 0.9% 1,000 ML 999 ML IV (20:08)
[2023-11-17 20:09] VITALS: BP 105/73; PULSE 80; RESP 20; O2SAT 97
[2023-11-17 20:09] LABS: Influenza A by IFA negative (Negative); Influenza B by IFA negative (Negative); SARS Covid-2 Antigen negative (Negative)
[2023-11-17 20:33] LABS: Alanine Aminotransferase 14 U/L (0-33); Albumin Level 4.6 g/dL (3.5-5.2); Alkaline Phosphatase 122 U/L (35-105); Aspartate Amino Transferase 19 U/L (0-32); Blood Urea Nitrogen 62 mg/dL (8-23); Calcium 10.3 mg/dL (8.5-10.5); Carbon Dioxide 28 mmol/L (22-29); Chloride 90 mmol/L (98-107); Creatinine Clr Calc Pharmacy 28.0518; Globulin 3.9 g/dL (1.3-4.6); Glomerular Filtration Rate 26.2 mL/min (90-130); Glucose 104 mg/dL (65-115); NT Pro B Type Natriuretic Pept 362 pg/mL (0-125); Osmolality Calculated 298 mOsm/kg (285-295); Sodium 135 mmol/L (136-145); Total Bilirubin 0.7 mg/dL (0.15-1.2); Total Protein 8.5 g/dL (6.6-8.7)
--- NOTE | 2023-11-17 20:33 | ECG_ITS ---
[facility] Test Date: 2023-11-17 Pat Name: Katie Eddy Department: Room: Gender: Female Weapons Officer: : 1955 Requested By: Case Olmedo Order Number: [id number] Lewis MD: Obdulio Robert M.D. Measurements Intervals [place] Rate: 58 P: 47 CO: 154 QRS: 13 QRSD: 89 T: 59 QT: 403 QTc: 399 Interpretive Statements SINUS BRADYCARDIA Compared to ECG 10/21/2023 19:25:16 Sinus rhythm no longer present Electronically Signed On 11-18-2023 15:58:33 CDT by Obdulio Robert M.D. [id number]
[2023-11-17 21:56] VITALS: BP 109/65; PULSE 74; RESP 16; O2SAT 99
== END 2023-11-17 21:57 | disposition home or self-care (01) ==
PROVIDERS: Emergency Provider Physician Assistant; PCP Family Medicine
DX: J44.9 Chronic obstructive pulmonary disease, unspecified (principal); Z79.02 Long term (current) use of antithrombotics/antiplatelets; Z79.82 Long term (current) use of aspirin; Z11.52 Encounter for screening for COVID-19; Z87.891 Personal history of nicotine dependence; Z85.118 Personal history of other malignant neoplasm of bronchus and lung; I10 Essential (primary) hypertension
CPT/HCPCS: 36415; 36600; 71045; 80051; 80053; 82330; 82805; 83880; 85025; 87426; 87804; 93005; 94640; 96374; 99285; J2405; J7030